=== PATIENT | male | born 1930 | race Hispanic/Latino ===

== ENCOUNTER 2017-05-28 06:22 | Emergency (ER) | payer MEDICARE ==
[2017-05-28 06:22] VITALS: BMI 25.8
[2017-05-28 06:28] VITALS: BP 118/73; PULSE 79; RESP 16; TEMP 98; O2SAT 99
--- NOTE | 2017-05-28 07:12 | ED PDOC ---
HPI: Back Time Seen by Provider: 05/28/17 07:02 Chief Complaint (Nursing): Back Pain Chief Complaint (Provider): Back Pain History Per: Patient History/Exam Limitations: no limitations Onset/Duration Of Symptoms: Days Current Symptoms Are (Timing): Still Present Additional Complaint(s): 86 y/o male with a past medical history of herniated lumbar disc who presents to the emergency department with a complaint of a non-radiating left-sided lower back pain since yesterday, 05/27/2017. Denies weakness, paresthesias, or any urinary symptoms. Past Medical History Reviewed: Historical Data, Nursing Documentation, Vital Signs Vital Signs: Last Vital Signs Temp 98 F 05/28/17 06:25 Pulse 79 05/28/17 06:25 Resp 16 05/28/17 06:25 BP 118/73 05/28/17 06:25 Pulse Ox 99 05/28/17 06:25 - Medical History PMH: Back Problems (Herniated lumbar disc), HTN, Hypercholesterolemia, Hyperlipidemia - Surgical History Surgical History: No Surg Hx - Family History Family History: States: Unknown Family Hx - Social History Current smoker - smoking cessation education provided: No Alcohol: None Drugs: Denies - Home Medications Home Medications: Ambulatory Orders Medication Instructions Recorded Alendronate [Fosamax] 70 mg PO SAT 11/30/15 Atorvastatin [Lipitor] 10 mg PO DAILY 11/30/15 Cholecalciferol [Vitamin D 1000 IU] 1,000 unit PO DAILY 11/30/15 Cyanocobalamin [Vitamin B12 1000 1,000 mcg IM Q30D 11/30/15 mcg/ml Inj] Pantoprazole Sodium [Protonix] 40 mg PO DAILY 11/30/15 Timolol 0.5% Ophth [Timoptic 0.5% 1 drop EACHEYE DAILY 11/30/15 Ophth Soln] Valsartan [Diovan] 80 mg PO DAILY 11/30/15 Ibuprofen [Motrin] 600 mg PO TID 7 Days 09/09/16 oxyCODONE/Acetaminophen [Percocet 1 ea PO BID PRN #8 tab 09/09/16 5/325 mg Tab] Lactulose 10 gm PO DAILY 4 Days 09/15/16 Cyclobenzaprine [Cyclobenzaprine 10 mg PO TID #10 tab 05/28/17 HCl] Naproxen [Naprosyn] 500 mg PO Q12H #20 tab 05/28/17 - Allergies Allergies/Adverse Reactions: Allergies Allergy/AdvReac Type Severity Reaction Status Date / Time No Known Allergies Allergy Verified 11/30/15 17:00 Review of Systems ROS Statement: Except As Marked, All Systems Reviewed And Found Negative Genitourinary Male: Negative for: Dysuria, Frequency, Incontinence, Hematuria Musculoskeletal: Positive for: Back Pain Neurological: Negative for: Weakness (or paresthesias) Physical Exam - Reviewed Nursing Documentation Reviewed: Yes Vital Signs Reviewed: Yes - Physical Exam Appears: Positive for: Non-toxic, No Acute Distress Head Exam: Positive for: ATRAUMATIC, NORMAL INSPECTION, NORMOCEPHALIC Skin: Positive for: Normal Color, Warm, Dry Neck: Positive for: Normal, Supple Back: Positive for: Other (Left-sided paralumbar tenderness and spasn. ). Negative for: Normal Inspection (No midline tenderness or deformity.) Neurologic/Psych: Positive for: Alert, Oriented (x3). Negative for: Motor/ Sensory Deficits (Focal) - ECG O2 Sat by Pulse Oximetry: 99 (RA) Pulse Ox Interpretation: Normal Medical Decision Making Medical Decision Making: Time: 07:06 Initial impression: Back Pain Initial plan: --Urine DIP --Cyclobenzaprine 10 mg PO --Toradol 30 mg IM --Reevaluation Scribe Attestation: Documented by Malaika Vann, acting as a scribe for Mauricio Perez MD. Provider Scribe Attestation: All medical record entries made by the Scribe were at my direction and personally dictated by me. I have reviewed the chart and agree that the record accurately reflects my personal performance of the history, physical exam, medical decision making, and the department course for this patient. I have also personally directed, reviewed, and agree with the discharge instructions and disposition. Disposition - Clinical Impression Clinical Impression: Chronic back pain, Back strain - Patient ED Disposition Is Patient to be Admitted: No Counseled Patient/Family Regarding: Diagnosis, Need For Followup, Rx Given - Disposition Referrals: Tere Arguello MD [Staff Provider] - Disposition: Routine/Home Disposition Time: 08:03 Condition: FAIR Prescriptions: Cyclobenzaprine [Cyclobenzaprine HCl] 10 mg PO TID #10 tab Naproxen [Naprosyn] 500 mg PO Q12H #20 tab Instructions: Back Pain (ED) Forms: [facility] (Kittitian)
== END 2017-05-28 09:02 | disposition home or self-care (01) ==
LOC: H.ER 06:22
DX: M54.9 Dorsalgia, unspecified (principal); E78.5 Hyperlipidemia, unspecified; G89.29 Other chronic pain; I10 Essential (primary) hypertension
CPT/HCPCS: 96372; 99282; J1885

== ENCOUNTER 2017-05-29 22:39 | Inpatient (IN) | payer MEDICARE ==
[2017-05-29 22:39] VITALS: BMI 25.8
--- NOTE | 2017-05-29 23:36 | ED PDOC ---
Lower Extremity Pain/Injury Time Seen by Provider: 05/29/17 22:45 Chief Complaint (Nursing): Lower Extremity Problem/Injury Chief Complaint (Provider): Lower Extremity Problem/Injury History Per: Patient History/Exam Limitations: no limitations Onset/Duration Of Symptoms: Mins (30 min prior to arrival) Current Symptoms Are (Timing): Still Present Additional Complaint(s): 86 y/o male with a history of hypertension, gait instability, recurrent falls, chronic back pain, and disc herniation, who was brought to the ED by EMS after sustaining a fall 30 minutes prior to arrival. States that while getting out of bed he fell, and lost his balance trying to get back up. No head injury, LOC, or chest pain. Patient with left-sided buttock pain but denies difficulty moving lower extremities. States that he has chronic back pain , and pain is similar to what he normally experiences. PMD: Parker Mandujano Past Medical History Reviewed: Historical Data, Nursing Documentation, Vital Signs Vital Signs: Last Vital Signs Temp 98.1 F 05/29/17 22:41 Pulse 76 05/29/17 22:41 Resp 18 05/29/17 22:41 BP 98/61 L 05/29/17 22:41 Pulse Ox 97 05/29/17 22:41 - Medical History PMH: Back Problems (Herniated lumbar disc), HTN, Hypercholesterolemia, Hyperlipidemia Other PMH: gait instability, recurrent falls - Surgical History Surgical History: No Surg Hx - Family History Family History: States: Unknown Family Hx - Social History Current smoker - smoking cessation education provided: No Alcohol: None Drugs: Denies - Home Medications Home Medications: Ambulatory Orders Medication Instructions Recorded Alendronate [Fosamax] 70 mg PO SAT 11/30/15 Atorvastatin [Lipitor] 10 mg PO DAILY 11/30/15 Cholecalciferol [Vitamin D 1000 IU] 1,000 unit PO DAILY 11/30/15 Cyanocobalamin [Vitamin B12 1000 1,000 mcg IM Q30D 11/30/15 mcg/ml Inj] Pantoprazole Sodium [Protonix] 40 mg PO DAILY 11/30/15 Timolol 0.5% Ophth [Timoptic 0.5% 1 drop EACHEYE DAILY 11/30/15 Ophth Soln] Valsartan [Diovan] 80 mg PO DAILY 11/30/15 Ibuprofen [Motrin] 600 mg PO TID 7 Days 09/09/16 oxyCODONE/Acetaminophen [Percocet 1 ea PO BID PRN #8 tab 09/09/16 5/325 mg Tab] Lactulose 10 gm PO DAILY 4 Days 09/15/16 Cyclobenzaprine [Cyclobenzaprine 10 mg PO TID #10 tab 05/28/17 HCl] Naproxen [Naprosyn] 500 mg PO Q12H #20 tab 05/28/17 - Allergies Allergies/Adverse Reactions: Allergies Allergy/AdvReac Type Severity Reaction Status Date / Time No Known Allergies Allergy Verified 11/30/15 17:00 Review of Systems ROS Statement: Except As Marked, All Systems Reviewed And Found Negative Musculoskeletal: Positive for: Other (Hip pain) Physical Exam - Reviewed Nursing Documentation Reviewed: Yes Vital Signs Reviewed: Yes - Physical Exam Appears: Positive for: Non-toxic, No Acute Distress Head Exam: Positive for: ATRAUMATIC, NORMAL INSPECTION, NORMOCEPHALIC Skin: Positive for: Normal Color, Warm, Dry Eye Exam: Positive for: EOMI, Normal appearance, PERRL Neck: Positive for: Normal, Painless ROM, Supple Cardiovascular/Chest: Positive for: Regular Rate, Rhythm. Negative for: Murmur Respiratory: Positive for: Normal Breath Sounds. Negative for: Accessory Muscle Use, Respiratory Distress Gastrointestinal/Abdominal: Positive for: Normal Exam, Soft. Negative for: Tenderness Back: Positive for: Normal Inspection. Negative for: L CVA Tenderness, R CVA Tenderness, Vertebral Tenderness Extremity: Positive for: Normal ROM (At baseline, patient ambulates w/ a cane. Able to raise leg without difficulty.). Negative for: Deformity, Other (hip tenderness) Neurologic/Psych: Positive for: Alert, Oriented - Laboratory Results Result Diagrams: 05/30/17 01:10 05/30/17 01:10 - ECG O2 Sat by Pulse Oximetry: 97 (RA) Pulse Ox Interpretation: Normal - Critical Care Total Time (In Min): 30 Medical Decision Making Medical Decision Making: Time: 22:56 Impression: 86 y/o male with hip pain s/p fall --Ordered X-Ray Left Hip w/ Pelvis --Pending reevaluation and disposition Time: 23:39 X-Ray Left Hip & Pelvis: FINDINGS: Bones/joints: No acute fracture. No dislocation. Soft tissues: Vascular calcifications. IMPRESSION: 1. No fracture. 2. If hip pain persists, consider MRI to exclude occult fracture/internal derangement. Time: 00:51 --Gait is very unsteady and unstable, patient is at high risk for recurrent falls at home --Will admit patient for further work-up and possible sub-acute rehab. Diagnoses: Dystaxia, Recurrent falls --Ordered labs, EKG, and Chest X-Ray --CT Head w/o contrast --CT Lumbar Spine w/o contrast --Arrangements made with Dr. Ritter, Medicine on-call, for admission Time: 02:05 CT Head w/o contrast: FINDINGS: Brain: Moderate atrophy. No intracranial hemorrhage. No mass. Few scattered foci of decreased attenuation within periventricular/subcortical white matter. No edema. Ventricles: No hydrocephalus. Bones/joints: No acute fracture. Soft tissues: Unremarkable. Vasculature: Atherosclerotic disease of intracranial arteries. Sinuses: [id number] mucosal thickening of RIGHT maxillary sinus. Mastoid air cells: No mastoid effusion. Orbits: Unremarkable as visualized. IMPRESSION: 1. No intracranial hemorrhage. 2. Nonspecific white matter changes. 3. Incidental/non-acute findings are described above. Time: 02:11 CT Lumbar Spine w/o contrast: FINDINGS: Vertebrae: No acute fracture. Moderate to severe compression deformity L1 vertebral body, chronic. Mild wedge compression deformity T12 vertebral body, chronic. Levoscoliosis. Facet osteoarthrosis within lumbar spine. Discs/spinal canal/neural foramina: Moderate to severe degenerative disc disease within upper to mid lumbar spine. Mild degenerative disc disease within lower lumbar spine. Mild central canal stenosis. Multilevel neuroforaminal stenosis. Soft tissues: Unremarkable. Vasculature: Atherosclerotic disease of visualized arteries. IMPRESSION: 1. No fracture. 2. Incidental/non-acute findings are described above. Scribe Attestation: Documented by Verna Giron, acting as a scribe for Elijah Sellers MD Provider Scribe Attestation: All medical record entries made by the Scribe were at my direction and personally dictated by me. I have reviewed the chart and agree that the record accurately reflects my personal performance of the history, physical exam, medical decision making, and the department course for this patient. I have also personally directed, reviewed, and agree with the discharge instructions and disposition. Disposition - Clinical Impression Clinical Impression: Fall, Back contusion - Patient ED Disposition Is Patient to be Admitted: Yes Counseled Patient/Family Regarding: Studies Performed, Diagnosis - Disposition Disposition Time: 00:20 Condition: STABLE - Pt Status Changed To: Hospital Disposition Of: Inpatient - Admit Certification Admit to Inpatient:: After my assessment, the patient will require hospitalization for at least two midnights. This is because of the severity of symptoms shown, intensity of services needed, and/or the medical risk in this patient being treated as an outpatient. - POA Present On Arrival: Falls Or Trauma
--- NOTE | 2017-05-29 23:39 | RAD ---
EXAM: XR Left Hip With Pelvis When Performed, 2 or 3 Views CLINICAL HISTORY: 86 years old, male; Injury or trauma; Fall; Initial encounter; Blunt trauma (contusions or hematomas); Left; Hip; Additional info: Left hip pain TECHNIQUE: Two or three views of the left hip, with pelvis when performed. COMPARISON: No relevant prior studies available. FINDINGS: Bones/joints: No acute fracture. No dislocation. Soft tissues: Vascular calcifications. IMPRESSION: 1. No fracture. 2. If hip pain persists, consider MRI to exclude occult fracture/internal derangement.
[2017-05-30 01:26] LABS: BASO # 0.1 K/uL (0.0-0.2); BASO % 0.8 % (0.0-2.0); EOS # 0.2 K/uL (0.0-0.7); EOS % 1.9 % (0.0-4.0); HEMATOCRIT 41.4 % (35.0-51.0); LYMPH # 2.3 K/uL (1.0-4.3); LYMPH % 18.1 % (20.0-40.0); MEAN CELL VOLUME 97.5 fl (80.0-94.0); MEAN CORPUSCULAR HEMOGLOBIN 32.2 pg (27.0-31.0); MEAN PLATELET VOLUME 8.7 fl (7.2-11.7); MONO # 1.6 K/uL (0.0-0.8); MONO % 12.4 % (0.0-10.0); NEUT # 8.6 K/uL (1.8-7.0); NEUT % 66.8 % (50.0-75.0); NRBC % 0.1 % (0.0-0.0); RED CELL DISTRIBUTION WIDTH 15.5 % (11.5-14.5); WHITE BLOOD COUNT 12.9 K/uL (4.8-10.8)
[2017-05-30 01:45] LABS: CALCIUM 9.3 mg/dL (8.4-10.2); POTASSIUM 4.2 MMOL/L (3.6-5.0); TOTAL PROTEIN 7.2 G/DL (6.3-8.2)
[2017-05-30 01:46] LABS: ALB/GLOB RATIO 1.1 (1.0-2.1); BILIRUBIN,TOTAL 0.8 mg/dl (0.2-1.3)
--- NOTE | 2017-05-30 02:05 | CT ---
EXAM: CT Head Without Intravenous Contrast CLINICAL HISTORY: 86 years old, male; Injury or trauma; Fall; Initial encounter; Concussion / head injury; Consciousness not specified; Additional info: Dystaxia. Sent phy. Doc. With request TECHNIQUE: Axial computed tomography images of the head/brain without intravenous contrast. All CT scans at this facility use one or more dose reduction techniques, viz.: automated exposure control; ma/kV adjustment per patient size (including targeted exams where dose is matched to indication; i.e. head); or iterative reconstruction technique. Coronal and sagittal reformatted images were created and reviewed. COMPARISON: CT - HEAD W/O CONTRAST 04/01/2016 10:37:58 AM FINDINGS: Brain: Moderate atrophy. No intracranial hemorrhage. No mass. Few scattered foci of decreased attenuation within periventricular/subcortical white matter. No edema. Ventricles: No hydrocephalus. Bones/joints: No acute fracture. Soft tissues: Unremarkable. Vasculature: Atherosclerotic disease of intracranial arteries. Sinuses: Velq-yj-ktotyxaj mucosal thickening of RIGHT maxillary sinus. Mastoid air cells: No mastoid effusion. Orbits: Unremarkable as visualized. IMPRESSION: 1. No intracranial hemorrhage. 2. Nonspecific white matter changes. 3. Incidental/non-acute findings are described above.
--- NOTE | 2017-05-30 02:12 | CT ---
EXAM: CT Lumbar Spine Without Intravenous Contrast CLINICAL HISTORY: 86 years old, male; Injury or trauma; Fall; Initial encounter; Blunt trauma (contusions or hematomas); Injury details: Back pain; Additional info: Back pain/dystaxia. Sent phy. Doc. With request TECHNIQUE: Axial computed tomography images of the lumbar spine without intravenous contrast. All CT scans at this facility use one or more dose reduction techniques, viz.: automated exposure control; ma/kV adjustment per patient size (including targeted exams where dose is matched to indication; i.e. head); or iterative reconstruction technique. COMPARISON: MR - 08/24/2015 12:56:04 PM FINDINGS: Vertebrae: No acute fracture. Moderate to severe compression deformity L1 vertebral body, chronic. Mild wedge compression deformity T12 vertebral body, chronic. Facet osteoarthrosis within lumbar spine. Discs/spinal canal/neural foramina: Moderate to severe degenerative disc disease within upper to mid lumbar spine. Mild degenerative disc disease within lower lumbar spine. Mild central canal stenosis. Multilevel neuroforaminal stenosis. Soft tissues: Unremarkable. Vasculature: Atherosclerotic disease of visualized arteries. IMPRESSION: 1. No fracture. 2. Incidental/non-acute findings are described above.
--- NOTE | 2017-05-30 09:42 | RAD ---
HISTORY: admit COMPARISON: Comparison chest dated 09/09/2016. Comparison also made with CT scan chest dated 01/16/2010 FINDINGS: LUNGS: Mild bibasilar atelectasis and/or scarring changes. PLEURA: Calcified pleural plaque changes again seen left upper reva thorax. CARDIOVASCULAR: Heart is enlarged. Aorta is ectatic and uncoiled. OSSEOUS STRUCTURES: No significant abnormalities. VISUALIZED UPPER ABDOMEN: Normal. OTHER FINDINGS: None. IMPRESSION: Mild bibasilar atelectasis and or scarring. Calcified pleural plaque changes left upper reva thorax. .
--- NOTE | 2017-05-30 21:06 | CARD ---
APPROVED REPORT EKG Measurement Heart [id number] <Conclusion> Sinus rhythm with sinus arrhythmia with occasional premature ventricular complexes Left axis deviation Right bundle branch block Moderate voltage criteria for LVH, may be normal variant Cannot rule out Septal infarct, age undetermined Abnormal ECG
--- NOTE | 2017-05-31 05:03 | HP ---
HISTORY OF PRESENT ILLNESS: This is [id number] male with history of hypertension, degenerative spine disease with history of left lower extremity weakness, presented to emergency room after a fall. The patient recently has recurrent falls associated with chronic back pain. The patient had an MRI about a year ago and he was told he has disk herniation. The patient was brought to the emergency room after sustaining a fall 30 minutes prior to the arrival. The patient states that while getting out of the bed, he fell and lost his balance, trying to get up. No hit injury, loss of consciousness or chest pain. The patient with left-sided buttock pain, but denied difficulty moving lower extremities. The patient states that he has chronic leg pain and pain similar to what he normally experience. REVIEW OF SYSTEMS: All the review of systems is negative. ALLERGIES: NO KNOWN ALLERGIES. HOME MEDICATIONS: Include Protonix 40 mg daily, Motrin 600 mg 3 times a day as needed, vitamin B12 injection every month, Lipitor 10 mg daily, Fosamax 70 mg every week, Percocet 5/325 p.r.n. for pain, Diovan 80 mg daily, naproxen 500 mg every 12 hours and Flexeril 10 mg 3 times a day. 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 SOCIAL HISTORY: No history of smoking, ETOH or substance abuse. FAMILY HISTORY: Noncontributory. PHYSICAL EXAMINATION: GENERAL: The patient is in bed, comfortable at the time of this examination. VITAL SIGNS: Blood pressure 103/64, temperature 97.8, respiratory rate 20, and pulse 65. HEENT: Pupils equal and reactive to light. Normal appearing mucosa of the conjunctivae, oropharyngeal and nasal membrane mucosa. NECK: Supple. No JVD. No carotid bruits. No lymph node. No thyromegaly. CHEST AND LUNGS: Bilateral symmetrical expansion. Good air exchange, No rales. No rhonchi. CARDIOVASCULAR SYSTEM: PMI, not localized. S1, S2, no additional sounds. ABDOMEN: Normoactive bowel sounds, no tenderness. No thyromegaly, no masses. EXTREMITIES: No cyanosis, no clubbing, no edema. CENTRAL NERVOUS SYSTEM: Alert, awake, oriented x2. No neurological deficit could be appreciated. ASSESSMENT: 1. Frequent falls with unsteady gait secondary to disk herniation and degenerative spine disease. 2. History of hypertension. PLAN: We would start physical therapy, pain management and would give the patient also lactulose 30 mL every 4 hours due to constipation. We would plan also to discharge the patient to subacute rehabilitation if it is needed. [facility] MD Stone
[2017-05-31 06:39] LABS: RBC URINE 1 /hpf (0-3); URINE BILIRUBIN NEGATIVE (NEGATIVE); URINE BLOOD NEGATIVE (NEGATIVE); URINE COLOR YELLOW (YELLOW); URINE GLUCOSE (UA) NEG (Normal); URINE KETONE NEGATIVE (NEGATIVE); URINE LEUKOCYTE ESTERASE NEG Leu/uL (Negative); URINE PROTEIN NEGATIVE (NEGATIVE); WBC URINE < 1 /hpf (0-5)
[2017-05-31] MEDS ORDERED: Magnesium Citrate Oral SOL (300 ml) PO ONE (14:59)
[2017-05-31] MEDS ORDERED: Lactulose 10 gm/15 ml (Rectal Use) PR SCH (17:00)
--- NOTE | 2017-06-01 00:19 | PN ---
DATE: 05/31/2017 SUBJECTIVE: He is not in any cardiopulmonary distress. The patient was started on physical therapy. PHYSICAL EXAMINATION: VITAL SIGNS: Blood pressure 114/74, temperature 97.3, respiratory rate 20 and pulse 60. HEENT: Pupils equal, reactive to light. Normal appearing mucosa of the conjunctivae, oropharyngeal and nasal membrane mucosa. NECK: Supple. No JVD. No carotid bruit. No lymph node. No thyromegaly. CHEST AND LUNGS: Bilateral symmetrical expansion. Good air exchange. No rales, no rhonchi. CARDIOVASCULAR SYSTEM: PMI not localized. S1, S2. No additional sounds. ABDOMEN: Normoactive bowel sounds. No tenderness. No organomegaly. No masses. EXTREMITIES: No cyanosis, no clubbing, no edema. CENTRAL NERVOUS SYSTEM: Alert, awake, oriented x3. No neurological deficit could be appreciated except for unsteady gait. ASSESSMENT: 1. Degenerative spine disease with radiculopathy and right lower extremity weakness, frequent falls. 2. Hypertension. 3. Hypercholesterolemia. PLAN: Continue physical therapy and if the patient is a candidate will discharge to a subacute rehabilitation. Nadine Ritter MD
[2017-06-01 07:18] VITALS: RESP 20
[2017-06-01] MEDS ORDERED: Magnesium Citrate Oral SOL (300 ml) PO ONE (14:13)
[2017-06-02 00:36] VITALS: O2SAT 98
[2017-06-02 08:10] VITALS: BP 119/73; PULSE 71; TEMP 97.8
[2017-06-02 13:03] LABS: HEMATOCRIT 47.1 % (35.0-51.0); MEAN CELL VOLUME 98.7 fl (80.0-94.0); MEAN CORPUSCULAR HEMOGLOBIN 32.3 pg (27.0-31.0); MEAN CORPUSCULAR HGB CONC 32.7 g/dL (33.0-37.0); RED CELL DISTRIBUTION WIDTH 15.6 % (11.5-14.5); WHITE BLOOD COUNT 9.1 K/uL (4.8-10.8)
[2017-06-02 13:11] LABS: BLOOD UREA NITROGEN 17 mg/dl (9-20); CARBON DIOXIDE 23 mmol/L (22-30); CHLORIDE 102 mmol/L (98-107); GFR AFRICAN-AMERICAN > 60; GLUCOSE,RANDOM 99 mg/dL (75-110); POTASSIUM 4.2 MMOL/L (3.6-5.0); SODIUM 138 mmol/l (132-148)
[2017-06-02] MEDS ORDERED: Hydrogen Peroxide 3% Soln (480ml) TP ONE (17:00)
--- NOTE | 2017-06-03 06:58 | DS ---
REASON FOR ADMISSION: This is an 86 years old male with history of multiple medical problems presented with symptoms of frequent fall. COURSE OF HOSPITALIZATION: The patient was admitted to medical floor and he had a physical therapy order. The patient has been having degenerative spine disease with lumbosacral disc herniation and radiculopathy with some weakness of the lower extremity, left more than right and tendency to fall. The patient was obliged to continue physical therapy and pain control by acetaminophen 650 mg twice a day as needed. The patient was recommended to go to subacute rehabilitation by physical therapy. The patient was discharged to [facility] today in a stable condition. FINAL DIAGNOSES: Frequent falls, degenerative spine disease with lumbosacral disc herniation and radiculopathy, hypertension. [facility] MD Stone
== END 2017-06-02 18:24 | DRG 552 ==
LOC: H.ER 22:39 → H.ERHOLD 05-30 00:56 → H.MEDSURG1 05-30 02:35
PROVIDERS: ADMIT Internal Medicine; ATTEND Internal Medicine
PROC: F07Z9FZ Gait Training/Functional Ambulation Treatment using Assistive, Adaptive, Supportive or Protective Equipment (ICD-10-PCS; principal; 2017-05-31)
DX: M51.17 Intervertebral disc disorders with radiculopathy, lumbosacral region (principal); I10 Essential (primary) hypertension; G89.29 Other chronic pain; R29.6 Repeated falls; R26.89 Other abnormalities of gait and mobility; E78.5 Hyperlipidemia, unspecified; E78.00 Pure hypercholesterolemia, unspecified; Z79.83 Long term (current) use of bisphosphonates

== ENCOUNTER 2017-08-24 15:21 | Emergency (ER) | payer MEDICARE ==
[2017-08-24 15:22] VITALS: BMI 25.8
[2017-08-24] MEDS ORDERED: Sodium Chloride 0.9% 1,000 ML IV STA (17:08)
[2017-08-24] MEDS ORDERED: Iohexol 240 (50 ml) PO ONE (17:13)
[2017-08-24 18:12] LABS: BASO # 0.1 K/uL (0.0-0.2); BASO % 0.4 % (0.0-2.0); EOS # 0.2 K/uL (0.0-0.7); EOS % 0.8 % (0.0-4.0); HEMATOCRIT 41.5 % (35.0-51.0); LYMPH # 2.2 K/uL (1.0-4.3); LYMPH % 11.3 % (20.0-40.0); MEAN CELL VOLUME 96.6 fl (80.0-94.0); MEAN CORPUSCULAR HGB CONC 33.1 g/dL (33.0-37.0); MONO # 1.2 K/uL (0.0-0.8); NEUT % 81.5 % (50.0-75.0); RED CELL DISTRIBUTION WIDTH 15.7 % (11.5-14.5); WHITE BLOOD COUNT 19.6 K/uL (4.8-10.8)
[2017-08-24] MEDS ORDERED: Iohexol 240 (50 ml) ONE (18:12)
[2017-08-24 18:33] LABS: BILIRUBIN,TOTAL 1.1 mg/dl (0.2-1.3); CALCIUM 8.7 mg/dL (8.4-10.2); CARBON DIOXIDE 26 mmol/L (22-30); CHLORIDE 106 mmol/L (98-107); GFR AFRICAN-AMERICAN > 60; GLUCOSE,RANDOM 100 mg/dL (75-110); SODIUM 142 mmol/l (132-148); TOTAL PROTEIN 7.3 G/DL (6.3-8.2)
[2017-08-24 18:35] LABS: ALKALINE PHOSPHATASE 101 U/L (38-126); ALT/SGPT 53 U/L (21-72); AST/SGOT 47 U/L (17-59); BLOOD UREA NITROGEN 22 mg/dl (9-20); POTASSIUM 4.9 MMOL/L (3.6-5.0)
--- NOTE | 2017-08-24 18:48 | ED PDOC ---
HPI: General Adult Time Seen by Provider: 08/24/17 16:25 Chief Complaint (Nursing): GI Problem History Per: Patient Additional Complaint(s): Pt. states for the past week she's had frequent non-bloody BM's which change between normal consistency to diarrhea. States he is usually constipated and he last took his "constipation medicine" the day before the onset of symptoms. Denies abdominal pain, fever, dysuria, melena, hematochezia, BRBPR, N/V, chest pain, SOB, palpitations. Past Medical History Reviewed: Historical Data, Nursing Documentation, Vital Signs Vital Signs: Last Vital Signs Temp 98.2 F 08/24/17 16:13 Pulse 95 H 08/24/17 16:13 Resp 16 08/24/17 16:13 BP 104/48 L 08/24/17 16:13 Pulse Ox 96 08/24/17 16:13 - Medical History PMH: Back Problems (Herniated lumbar disc), HTN, Hypercholesterolemia, Hyperlipidemia Denies: Asthma, HIV, Hyperthyroidism, Hypothyroidism, Kidney Stones, Chronic Kidney Disease - Family History Family History: States: No Known Family Hx - Home Medications Home Medications: Ambulatory Orders Medication Instructions Recorded Alendronate [Fosamax] 70 mg PO SAT 11/30/15 Atorvastatin [Lipitor] 10 mg PO DAILY 11/30/15 Cholecalciferol [Vitamin D 1000 IU] 1,000 unit PO DAILY 11/30/15 Cyanocobalamin [Vitamin B12 1000 1,000 mcg IM Q30D 11/30/15 mcg/ml Inj] Pantoprazole Sodium [Protonix] 40 mg PO DAILY 11/30/15 Timolol 0.5% Ophth [Timoptic 0.5% 1 drop EACHEYE DAILY 11/30/15 Ophth Soln] Valsartan [Diovan] 80 mg PO DAILY 11/30/15 oxyCODONE/Acetaminophen [Percocet 1 ea PO BID PRN #8 tab 09/09/16 5/325 mg Tab] Lactulose 10 gm PO DAILY 4 Days solution 09/15/16 Cyclobenzaprine [Flexeril] 10 mg PO TID #10 tab 05/28/17 Naproxen [Naprosyn] 500 mg PO Q12H #20 tab 05/28/17 Ibuprofen [Motrin Tab] 600 mg PO TID PRN 05/30/17 Lactulose [Enulose] 20 gm PO Q4H PRN 06/02/17 - Allergies Allergies/Adverse Reactions: Allergies Allergy/AdvReac Type Severity Reaction Status Date / Time No Known Allergies Allergy Verified 08/24/17 16:10 Review of Systems ROS Statement: Except As Marked, All Systems Reviewed And Found Negative Gastrointestinal: Positive for: Diarrhea Physical Exam - Reviewed Nursing Documentation Reviewed: Yes Vital Signs Reviewed: Yes - Physical Exam Appears: Positive for: Well, Non-toxic, No Acute Distress Head Exam: Positive for: ATRAUMATIC, NORMAL INSPECTION, NORMOCEPHALIC Skin: Positive for: Normal Color, Warm. Negative for: Rash Eye Exam: Positive for: EOMI, Normal appearance, PERRL ENT: Positive for: Normal ENT Inspection Neck: Positive for: Normal, Painless ROM Cardiovascular/Chest: Positive for: Regular Rate, Rhythm Respiratory: Positive for: CNT, Normal Breath Sounds Gastrointestinal/Abdominal: Positive for: Normal Exam, Bowel Sounds, Soft. Negative for: Tenderness Back: Positive for: Normal Inspection Extremity: Positive for: Normal ROM Neurologic/Psych: Positive for: Alert, Oriented. Negative for: Aphasia, Facial Droop - Laboratory Results Result Diagrams: 08/24/17 18:00 08/24/17 18:00 - ECG O2 Sat by Pulse Oximetry: 96 - Progress ED Course And Treament: Labs ordered. CT abd/pelvis w/ PO and IV contrast ordered. IV NS hydration ordered. 1845 WBC 19.6 VBG, Blood culture x 2 ordered. Disposition - Clinical Impression Clinical Impression: Diarrhea - Patient ED Disposition Is Patient to be Admitted: Transfer of Care (Signed out to Humza KELLEY pending CT results and final disposition.) - Disposition Disposition Time: 20:00 Condition: STABLE
[2017-08-24 19:21] LABS: VENOUS BLOOD GAS BASE EXCESS 2.2 mmol/L (0.0-2.0); VENOUS BLOOD GAS PCO2 43 mmHg (40-60); VENOUS BLOOD PH 7.41 (7.32-7.43)
[2017-08-24] MEDS ORDERED: Sodium Chloride 0.9% 50 ML IV ONE (20:10)
[2017-08-24] MEDS ORDERED: Iohexol 300 100 ML IJ ONE (20:10)
--- NOTE | 2017-08-24 20:46 | ED PDOC ---
- Laboratory Results Result Diagrams: 08/24/17 18:00 08/24/17 18:00 - ECG O2 Sat by Pulse Oximetry: 96 Medical Decision Making Medical Decision Making: Case endorsed to fiction writer from [facility] at 1999 pending diagnostic review and re-eval Upon my eval, Pt in bed asking for food. CT scan pending IMPRESSION: Fatty liver, no acute solid visceral abnormality; no bowel obstruction; moderate stool in the left colon with fecal bolus in the rectum and rectal wall thickening suggests constipation and fecal impaction, this could result in encopresis; no CT findings of appendicitis or diverticulitis; age indeterminate L1 compression fracture Additional findings as described above Pt on re-eval offers no complaints of pain, Pt asking to eat now. abdomen soft, non tender and non distended. Pt asking to go home. Case discussed with ED MD, Dr. Nails, who agreed pt stable for discharge at this time. Importance of follow up with Dr. Mandujano discussed at length Disposition - Clinical Impression Clinical Impression: Constipated - POA Present On Arrival: None - Disposition Disposition: Routine/Home Disposition Time: 23:06 Condition: STABLE Additional Instructions: Follow up with Dr. Mandujano as directed Instructions: Constipation (ED) Forms: [facility] (Faroese)
--- NOTE | 2017-08-24 22:07 | CT ---
EXAM: CT Abdomen and Pelvis With Intravenous Contrast EXAM DATE/TIME: 08/24/2017 5:08 PM CLINICAL HISTORY: 86 years old, male; Signs and symptoms; Other: Diarrhea; Additional info: Diarrhea x 1 week TECHNIQUE: Axial computed tomography images of the abdomen and pelvis with intravenous contrast. All CT scans at this facility use one or more dose reduction techniques, viz.: automated exposure control; ma/kV adjustment per patient size (including targeted exams where dose is matched to indication; i.e. head); or iterative reconstruction technique. Coronal and sagittal reformatted images were created and reviewed. CONTRAST: 90 mL of [id number] administered intravenously. COMPARISON: There are no prior studies for comparison. FINDINGS: Lower thorax: The lungs are hyperinflated. The heart is mildly enlarged. There are coronary calcifications. Distal thoracic aorta is tortuous. There is atelectasis and scarring at the lung bases. ABDOMEN: Liver: There is fatty infiltration of the liver. Gallbladder and bile ducts: Partially distended gallbladder is normal in appearance.Common duct is unremarkable. Pancreas: Pancreas is atrophic. Spleen: unremarkable Adrenals: unremarkable Kidneys and ureters: unremarkable Stomach and bowel: Stomach is almost completely empty. Rotation is normal. Small bowel is mildly distended with fluid and air. There is no obstruction. There is oral contrast in distal small bowel and colon. Cecum is in the right upper quadrant anterior to the liver. Appendix and terminal ileum are unremarkable.. There is moderate stool in the left colon. There is a fecal bolus in the rectum. There is rectal wall thickening. There is scattered diverticulosis. Appendix: See stomach and bowel PELVIS: Bladder: Bladder is partially distended. There is a focal area of bladder wall thickening. Reproductive: Seminal vesicles and prostate are unremarkable. ABDOMEN and PELVIS: Intraperitoneal space: There is a small amount of free fluid in the pelvis.There is no free air. Bones/joints: Bony structures are osteopenic. There are degenerative changes. The is compression fracture of L1. There is mild loss of height of lower thoracic vertebral bodies. Soft tissues: There is a small fat containing umbilical hernia. Vasculature: There are calcified phleboliths. Aorta is tortuous.There are vascular calcifications. Lymph nodes: There is no pathologic adenopathy. IMPRESSION: Fatty liver, no acute solid visceral abnormality; no bowel obstruction; moderate stool in the left colon with fecal bolus in the rectum and rectal wall thickening suggests constipation and fecal impaction, this could result in encopresis; no CT findings of appendicitis or diverticulitis; age indeterminate L1 compression fracture Additional findings as described above.
[2017-08-24 22:23] VITALS: BP 105/55; PULSE 66; RESP 18; TEMP 98
[2017-08-24 22:30] LABS: RBC URINE 2 /hpf (0-3); URINE BACTERIA RARE (<OCC); URINE BILIRUBIN SMALL (NEGATIVE); URINE BLOOD NEGATIVE (NEGATIVE); URINE COLOR AMBER (YELLOW); URINE GLUCOSE (UA) NEG (Normal); URINE KETONE TRACE mg/dL (NEGATIVE); URINE LEUKOCYTE ESTERASE NEG Leu/uL (Negative); URINE PROTEIN 30 mg/dL (NEGATIVE); WBC URINE 4 /hpf (0-5)
[2017-08-24 22:58] VITALS: O2SAT 96
--- NOTE | 2017-08-25 11:34 | RAD ---
HISTORY: cough COMPARISON: Frontal chest radiograph 05/30/2017. TECHNIQUE: Chest PA and lateral FINDINGS: LUNGS: History volume appears diminished compared to the prior exam 05/30/2017. The hemidiaphragm also appears mildly elevated. Reticular markings may be present although increased linear density at the bilateral bases may be a function of carotid bronchovascular markings from limited history effort. No alveolitis or pneumothorax. No pleural effusion bilaterally. CARDIOVASCULAR: Cardiac silhouette is partially obscured by the elevated left hemidiaphragm but is not significantly changed overall. No pulmonary vascular derangement identified. OSSEOUS STRUCTURES: No significant abnormalities. VISUALIZED UPPER ABDOMEN: Oral contrast identified within the stomach and several bowel loops. OTHER FINDINGS: None. IMPRESSION: Limited history effort may be the cause of crowding of the bronchovascular markings the bases although interstitial changes are not excluded both bases. Further clinical correlation is recommended. Elevated left hemidiaphragm.
== END 2017-08-24 23:07 | disposition home or self-care (01) ==
LOC: H.ER 15:21
DX: K59.00 Constipation, unspecified (principal); E78.00 Pure hypercholesterolemia, unspecified; I10 Essential (primary) hypertension; K76.0 Fatty (change of) liver, not elsewhere classified; M48.56XA Collapsed vertebra, not elsewhere classified, lumbar region, initial encounter for fracture
CPT/HCPCS: 71020; 74177; 80053; 81003; 82803; 85025; 87040; 99284; J7040; Q9966; Q9967

== ENCOUNTER 2017-08-28 18:54 | Inpatient (IN) | payer MEDICARE ==
[2017-08-28 18:56] VITALS: BMI 25.8
--- NOTE | 2017-08-28 21:35 | ED PDOC ---
HPI: General Adult Time Seen by Provider: 08/28/17 19:23 Chief Complaint (Nursing): GI Problem Chief Complaint (Provider): Fecal Incontinence History Per: Patient History/Exam Limitations: no limitations Onset/Duration Of Symptoms: Days (x 4) Additional Complaint(s): Richard Crespo is a 86 year old, male who presents to the ED complaining of fecal incontinence, onset 4 days ago. Patient was here on Thursday complaining of symptoms related to abdominal pain and constipation. A CT was taken of his abdomen which showed a large amount of fecal impaction. He returned today because of two episodes of fecal incontinence, one today and another on Thursday. He now denies abdominal pain, rectal pain, fever, cough, chest pain, shortness of breath, nausea and vomiting. PMD: Dr. Parker Mandujano MD Past Medical History Reviewed: Historical Data, Nursing Documentation, Vital Signs Vital Signs: Last Vital Signs Temp 98.4 F 08/28/17 22:57 Pulse 84 08/28/17 22:57 Resp 16 08/28/17 22:57 BP 124/66 08/28/17 22:57 Pulse Ox 98 08/28/17 22:57 - Medical History PMH: Back Problems (Herniated lumbar disc), HTN, Hypercholesterolemia, Hyperlipidemia Denies: Asthma, HIV, Hyperthyroidism, Hypothyroidism, Kidney Stones, Chronic Kidney Disease - Family History Family History: States: Unknown Family Hx - Social History Current smoker - smoking cessation education provided: No Alcohol: None Drugs: Denies - Home Medications Home Medications: Ambulatory Orders Medication Instructions Recorded Alendronate [Fosamax] 70 mg PO SAT 11/30/15 Atorvastatin [Lipitor] 10 mg PO DAILY 11/30/15 Cholecalciferol [Vitamin D 1000 IU] 1,000 unit PO DAILY 11/30/15 Cyanocobalamin [Vitamin B12 1000 1,000 mcg IM Q30D 11/30/15 mcg/ml Inj] Pantoprazole Sodium [Protonix] 40 mg PO DAILY 11/30/15 Timolol 0.5% Ophth [Timoptic 0.5% 1 drop EACHEYE DAILY 11/30/15 Ophth Soln] Valsartan [Diovan] 80 mg PO DAILY 11/30/15 oxyCODONE/Acetaminophen [Percocet 1 ea PO BID PRN #8 tab 09/09/16 5/325 mg Tab] Cyclobenzaprine [Flexeril] 10 mg PO TID #10 tab 05/28/17 Naproxen [Naprosyn] 500 mg PO Q12H #20 tab 05/28/17 Ibuprofen [Motrin Tab] 600 mg PO TID PRN 05/30/17 Lactulose [Enulose] 20 gm PO Q4H PRN 06/02/17 Guaifenesin [Mucinex] 600 mg PO Q12 #30 tab.er.12h 08/24/17 - Allergies Allergies/Adverse Reactions: Allergies Allergy/AdvReac Type Severity Reaction Status Date / Time No Known Allergies Allergy Verified 08/24/17 16:10 Review of Systems ROS Statement: Except As Marked, All Systems Reviewed And Found Negative Genitourinary Male: Positive for: Incontinence (fecal) Physical Exam - Reviewed Nursing Documentation Reviewed: Yes Vital Signs Reviewed: Yes - Physical Exam Appears: Positive for: Non-toxic, No Acute Distress Head Exam: Positive for: ATRAUMATIC, NORMOCEPHALIC Skin: Positive for: Normal Color, Warm, Dry Eye Exam: Positive for: EOMI, Normal appearance, PERRL Neck: Positive for: Normal, Painless ROM, Supple Cardiovascular/Chest: Positive for: Regular Rate, Rhythm. Negative for: Murmur Respiratory: Positive for: Normal Breath Sounds. Negative for: Respiratory Distress Gastrointestinal/Abdominal: Positive for: Normal Exam, Soft. Negative for: Tenderness Back: Positive for: Normal Inspection. Negative for: L CVA Tenderness, R CVA Tenderness, Vertebral Tenderness Extremity: Positive for: Normal ROM. Negative for: Pedal Edema, Deformity Neurologic/Psych: Positive for: Alert, Oriented. Negative for: Motor/Sensory Deficits - Laboratory Results Result Diagrams: 08/28/17 22:27 08/28/17 22:27 - ECG O2 Sat by Pulse Oximetry: 99 (RA) Pulse Ox Interpretation: Normal Medical Decision Making Medical Decision Making: Time: 19:50 Impression: 86 year old male with encopresis. Plan: --Abdomen with chest [RAD] --Fleet Enema 135 ml --Provider reviewed CT report of abdomen which showed that patient was likely to develop encopresis. --X ray shows persistent fecal impaction --Patient to be admitted to hospital under observation. Reassess: 21:25 After 1 enema, patient reports of having a bowel movement that was large, but still reports of rectal pressure. Patient requests stay for more enema treatment. The Patient will be placed on observation due to multiple comorbidities and persistent discomfort. Diagnosis: fecal impaction and constipation Patient was discussed with Dr. Yo Mansfield and will be admitted to the hospital Scribe Attestation: Documented by Jessa Gastelum, acting as a scribe for Elijah Sellers MD. Provider Scribe Attestation: All medical record entries made by the Scribe were at my direction and personally dictated by me. I have reviewed the chart and agree that the record accurately reflects my personal performance of the history, physical exam, medical decision making, and the department course for this patient. I have also personally directed, reviewed, and agree with the discharge instructions and disposition. Disposition - Clinical Impression Clinical Impression: Constipation, acute, Fecal impaction - Patient ED Disposition Is Patient to be Admitted: Yes Discussed With DrAscencion: Yo Mansfield Doctor Will See Patient In The: Hospital - Disposition Disposition Time: 21:25 Condition: FAIR
[2017-08-28 22:30] LABS: BASO # 0.1 K/uL (0.0-0.2); BASO % 0.7 % (0.0-2.0); EOS # 0.3 K/uL (0.0-0.7); EOS % 2.5 % (0.0-4.0); HEMATOCRIT 40.7 % (35.0-51.0); LYMPH # 2.1 K/uL (1.0-4.3); LYMPH % 15.7 % (20.0-40.0); MEAN CELL VOLUME 96.3 fl (80.0-94.0); MEAN CORPUSCULAR HEMOGLOBIN 32.1 pg (27.0-31.0); MEAN CORPUSCULAR HGB CONC 33.3 g/dL (33.0-37.0); MONO # 1.4 K/uL (0.0-0.8); MONO % 10.4 % (0.0-10.0); NEUT # 9.3 K/uL (1.8-7.0); NEUT % 70.7 % (50.0-75.0); RED CELL DISTRIBUTION WIDTH 15.8 % (11.5-14.5); WHITE BLOOD COUNT 13.1 K/uL (4.8-10.8)
[2017-08-28] MEDS ORDERED: Sodium Chloride 0.9% 500 ML IV STA (22:30)
[2017-08-28 22:46] LABS: BLOOD UREA NITROGEN 19 mg/dl (9-20); CALCIUM 8.5 mg/dL (8.4-10.2); CARBON DIOXIDE 25 mmol/L (22-30); CHLORIDE 108 mmol/L (98-107); GFR AFRICAN-AMERICAN > 60; GLUCOSE,RANDOM 110 mg/dL (75-110); POTASSIUM 3.9 MMOL/L (3.6-5.0); SODIUM 143 mmol/l (132-148)
[2017-08-29 07:26] LABS: HEMATOCRIT 36.9 % (35.0-51.0); MEAN CELL VOLUME 96.1 fl (80.0-94.0); MEAN CORPUSCULAR HEMOGLOBIN 32.3 pg (27.0-31.0); MEAN CORPUSCULAR HGB CONC 33.6 g/dL (33.0-37.0); RED CELL DISTRIBUTION WIDTH 15.6 % (11.5-14.5); WHITE BLOOD COUNT 11.8 K/uL (4.8-10.8)
[2017-08-29 07:43] LABS: ALKALINE PHOSPHATASE 125 U/L (38-126); ALT/SGPT 56 U/L (21-72); AST/SGOT 37 U/L (17-59); BILIRUBIN,TOTAL 0.7 mg/dl (0.2-1.3); BLOOD UREA NITROGEN 15 mg/dl (9-20); CALCIUM 7.9 mg/dL (8.4-10.2); CARBON DIOXIDE 24 mmol/L (22-30); CHLORIDE 108 mmol/L (98-107); CHOLESTEROL 114 mg/dL (0-199); GFR AFRICAN-AMERICAN > 60; GLUCOSE,RANDOM 106 mg/dL (75-110); POTASSIUM 3.6 MMOL/L (3.6-5.0); SODIUM 140 mmol/l (132-148); TOTAL PROTEIN 6.6 G/DL (6.3-8.2)
[2017-08-29 08:11] LABS: THYROID STIMULATING HORMONE 2.52 mIU/ML (0.46-4.68)
--- NOTE | 2017-08-29 08:15 | CP.PCM.CON ---
History of Present Illness - History of Present Illness History of Present Illness: Asked by Dr. Mansfield for a GI consultation on this patient. 86 year old male with history of HTN, chronic back pain secondary to lumbar radiculopathy who presents to hospital with complaint of constipation and rectal discomfort. He claims that he has been experiencing intermittent rectal pain with fecal incontinence over the past two days. He is typically constipated and has a bowel movement every other day according to at bedside. He received an enema last night and had a large bowel movement afterwards. He is currently seen sitting in bed eating pancakes and eggs, appears quite comfortable. He denies abdominal pain, nausea, vomiting, fever/chills. Social history: non-smoker, no ETOH Family history: reviewed, no history of colon cancer Review of Systems - Review of Systems Review of Systems: - All other comprehensive 12 point review of systems performed, negative - Cardiovascular Cardiovascular: absent: Acrocyanosis, Chest Pain, Chest Pain at Rest, Chest Pain with Activity, Claudication, Diaphoresis, Dyspnea, Dyspnea on Exertion, Edema, Irregular Heart Rhythm, Pain Radiating to Arm/Neck/Jaw, Leg Edema, Leg Ulcers, Lightheadedness, Orthopnea, Palpitations, Paroxysmal Nocturnal Dyspnea, Pedal Edema, Radiating Pain, Rapid Heart Rate, Slow Heart Rate, Syncope, Other - Respiratory Respiratory: absent: Cough, Dyspnea, Hemoptysis, Dyspnea on Exertion, Wheezing, Snoring, Stridor, Pain on Inspiration, Chest Congestion, Excessive Mucous Production, Change in Mucous Color, Pain with Coughing, Other - Gastrointestinal Gastrointestinal: Constipation - Musculoskeletal Musculoskeletal: Back Pain - Neurological Neurological: absent: Abnormal Gait, Abnormal Hearing, Abnormal Movements, Abnormal Speech, Behavioral Changes, Burning Sensations, Confusion, Convulsions , Disequilibrium, Dizziness, Numbness, Focal Weakness, Frequent Falls, Headaches , Lack of Coordination, Loss of Vision, Memory Loss, Paresthesias, Radicular Pain, Restless Legs, Sensory Deficit, Syncope, Tingling, Tremor, Vertigo, Weakness, Other Visual Disturbances, Other Past Patient History - Past Medical History & Family History Past Medical History?: Yes - Past Social History Smoking Status: Former Smoker - CARDIAC Hx Hypercholesterolemia: Yes Hx Hypertension: Yes - PULMONARY Hx Asthma: No - NEUROLOGICAL Hx Neurological Disorder: No - HEENT Hx Deafness: Yes - RENAL Hx Chronic Kidney Disease: No Hx Kidney Stones: No - ENDOCRINE/METABOLIC Hx Hyperthyroidism: No Hx Hypothyroidism: No - HEMATOLOGICAL/ONCOLOGICAL Hx AIDS: No Hx Human Immunodeficiency Virus (HIV): No - INTEGUMENTARY Hx Dermatological Problems: No - MUSCULOSKELETAL/RHEUMATOLOGICAL Hx Musculoskeletal Disorders: Yes (arthritis) Hx Back Pain: Yes Hx Falls: Yes Hx Herniated Disk: Yes - GASTROINTESTINAL Hx Gastrointestinal Disorders: Yes Hx Gastroesophageal Reflux: Yes - GENITOURINARY/GYNECOLOGICAL Hx Genitourinary Disorders: No - PSYCHIATRIC Hx Psychophysiologic Disorder: No Hx Substance Use: No - SURGICAL HISTORY Hx Surgeries: Yes Other/Comment: prostate sx?/rectal sx 1969 - ANESTHESIA Hx Anesthesia: Yes Hx Anesthesia Reactions: No Hx Malignant Hyperthermia: No Has any member of the family had a problem w/ anesthesia?: No Meds Allergies/Adverse Reactions: Allergies Allergy/AdvReac Type Severity Reaction Status Date / Time No Known Allergies Allergy Verified 08/24/17 16:10 - Medications Medications: Current Medications Alendronate Sodium (Fosamax) 70 mg PO SAT [facility] Atorvastatin Calcium (Lipitor) 10 mg PO DAILY [facility] Cholecalciferol (Vitamin D) iu PO DAILY [facility] Cyanocobalamin (Vitamin B12 1000 Mcg/Ml Inj) 1,000 mcg IM Q30D [facility] Cyclobenzaprine HCl (Flexeril) 10 mg PO TID [facility] Docusate Sodium (Colace) 100 mg PO DAILY [facility] Enoxaparin Sodium (Lovenox) 40 mg SC DAILY [facility] PRN Reason: Protocol Guaifenesin (Mucinex La) 600 mg PO Q12 [facility] Lactulose (Enulose) 20 gm PO Q4H PRN PRN Reason: Constipation Lactulose (Enulose) 20 gm PO DAILY [facility] Naproxen (Naproxen) 500 mg PO Q12H [facility] Pantoprazole Sodium (Protonix Ec Tab) 40 mg PO DAILY [facility] Timolol Maleate (Timoptic 0.5% Ophth Soln) 1 drop OU DAILY [facility] Valsartan (Diovan) 80 mg PO DAILY [facility] Physical Exam - Constitutional Appears: Non-toxic, No Acute Distress - Head Exam Head Exam: NORMAL INSPECTION - Eye Exam Eye Exam: EOMI, Normal appearance - ENT Exam ENT Exam: Mucous Membranes Moist - Respiratory Exam Respiratory Exam: Clear to Auscultation Bilateral - Cardiovascular Exam Cardiovascular Exam: REGULAR RHYTHM, +S1, +S2 - GI/Abdominal Exam GI & Abdominal Exam: Normal Bowel Sounds, Soft Additional comments: non tender to palpation in four quadrants no palpable hepato/splenomegaly - Rectal Exam Rectal Exam: Deferred Additional comments: Patient currently eating breakfast - Extremities Exam Extremities exam: Positive for: normal inspection - Neurological Exam Neurological exam: Alert, CN II-XII Intact, Oriented x3, Reflexes Normal - Psychiatric Exam Psychiatric exam: Normal Affect, Normal Mood - Skin Skin Exam: Dry, Intact, Normal Color, Warm Results - Vital Signs Recent Vital Signs: Last Vital Signs Temp 97.7 F 08/28/17 23:44 Pulse 86 08/28/17 23:44 Resp 20 08/28/17 23:44 BP 112/61 08/28/17 23:44 Pulse Ox 99 08/28/17 23:44 - Labs Result Diagrams: 08/29/17 07:00 08/29/17 07:00 Labs: Laboratory Results - last 24 hr 08/28/17 08/28/17 08/29/17 22:27 22:27 07:00 WBC 13.1 H 11.8 H RBC 4.23 L 3.84 L Hgb 13.6 12.4 Hct 40.7 36.9 MCV 96.3 H 96.1 H MCH 32.1 H 32.3 H MCHC 33.3 33.6 RDW 15.8 H 15.6 H Plt Count 290 261 MPV 8.0 Neut % (Auto) 70.7 Lymph % (Auto) 15.7 L Parker % (Auto) 10.4 H Eos % (Auto) 2.5 Baso % (Auto) 0.7 Neut # 9.3 H Lymph # 2.1 Parker # 1.4 H Eos # 0.3 Baso # 0.1 Sodium 143 Potassium 3.9 Chloride 108 H Carbon Dioxide 25 Anion Gap 14 BUN 19 Creatinine 1.0 Est GFR ( Amer) > 60 Est GFR (Non-Af Amer) > 60 Random Glucose 110 Calcium 8.5 Total Bilirubin AST ALT Alkaline Phosphatase Total Protein Albumin Globulin Albumin/Globulin Ratio Triglycerides Cholesterol LDL Cholesterol Direct HDL Cholesterol 08/29/17 07:00 WBC RBC Hgb Hct MCV MCH MCHC RDW Plt Count MPV Neut % (Auto) Lymph % (Auto) Parker % (Auto) Eos % (Auto) Baso % (Auto) Neut # Lymph # Parker # Eos # Baso # Sodium 140 Potassium 3.6 Chloride 108 H Carbon Dioxide 24 Anion Gap 12 BUN 15 Creatinine 0.9 Est GFR ( Amer) > 60 Est GFR (Non-Af Amer) > 60 Random Glucose 106 Calcium 7.9 L Total Bilirubin 0.7 AST 37 ALT 56 Alkaline Phosphatase 125 Total Protein 6.6 Albumin 3.3 L Globulin 3.3 Albumin/Globulin Ratio 1.0 Triglycerides 81 Cholesterol 114 LDL Cholesterol Direct 63 HDL Cholesterol 33 Assessment & Plan - Assessment and Plan (Free Text) Assessment: HTN Chronic back pain Constipation, fecal impaction Plan: - Diet as tolerated - Abdominal XR from yesterday reviewed by me showing fecal retention in rectum and left colon - Continue with lactulose, would add stool softner to bowel regimen to prevent recurrent symptoms - Administer another tap water enema today - Avoid use of narcotic pain medication as this may exacerbate underlying symptoms - No further planned GI intervention, will sign off case. Patient would benefit from additional outpatient follow up. Please reconsult as necessary, thank you.
[2017-08-29] MEDS: guaiFENesin 600 mg ER Tab PO SCH ×2 (08:58→21:11)
[2017-08-29] MEDS: Pantoprazole 40 mg EC Tab PO SCH (08:59)
[2017-08-29] MEDS: Naproxen 500 MG TAB PO SCH ×2 (08:59→18:56)
[2017-08-29] MEDS ORDERED: ALENDRONATE 70 MG TAB PO SCH (09:00)
--- NOTE | 2017-08-29 10:18 | CARD ---
APPROVED REPORT EKG Measurement Heart [id number] <Conclusion> Sinus rhythm with marked sinus arrhythmia with occasional premature ventricular complexes and premature atrial complexes Left axis deviation Right bundle branch block Septal infarct, age undetermined Abnormal ECG
[2017-08-29] MEDS: Enoxaparin 40 mg Syringe SC SCH (12:10)
--- NOTE | 2017-08-29 15:30 | RAD ---
HISTORY: Rectal pain. COMPARISON: Comparison made with chest radiograph 09/15/2016. . Comparison also made with CT scan of the chest dated 01/16/2010. FINDINGS: Heart remains enlarged. Coarsened/increased interstitial markings with scattered peribronchial cuffing changes. Findings could represent sequela of reactive/inflammatory airway disease and or viral illness. . Anterior pleural based calcification (small calcified pleural plaque) again seen in the left upper lobe. No evidence of free intraperitoneal air seen under the diaphragmatic surfaces. There is oral contrast material (given as part of a CT scan study of the abdomen pelvis dated 08/24/2017) seen opacifying the transverse and descending as well as sigmoid colon and rectum. Multiple colonic diverticula again seen arising from the descending and sigmoid colon which happen to be outlined by opaque contrast material. Multilevel degenerative spondylosis of the thoracic and lumbar spine the. IMPRESSION: Coarsened/ increased interstitial markings with scattered peribronchial cuffing changes. Rule out sequela of reactive/inflammatory airway disease or viral illness. The possibility of chronic interstitial disease/ fibrosis to be considered as well. . Small calcified pleural plaque left upper lobe No evidence of acute mechanical bowel obstruction. Multiple colonic diverticula again seen arising from the descending and sigmoid colon which relatively well seen due to the presence of oral contrast material which was given as part of a CT scan abdomen pelvis study 08/24/2017.
--- NOTE | 2017-08-29 20:03 | HP ---
CHIEF COMPLAINT: Fecal incontinence, constipation, and diarrhea. HISTORY OF PRESENT ILLNESS: This is an 86-year-old male, known case of hypertension, elevated cholesterol, osteoarthritis, chronic herniated disk leading to back pain, for which patient is on multiple narcotics and other pain medication, who was having fecal incontinence for 4 days, so patient was brought to the emergency room and was admitted for further management. The patient had been constipated and was treated for same, but the patient did not have good bowel movement and was continued to have fecal incontinence and leakage. REVIEW OF SYSTEMS: Positive for abdominal pain and fecal incontinence. Review of systems otherwise is negative for headache, dizziness, syncope, loss of consciousness, chest pain, shortness of breath, nausea, vomiting, any new joint or extremity pain. Review of systems of all other organ system is unremarkable. PAST MEDICAL HISTORY: Significant for hypertension, elevated cholesterol, herniated disk, back pain. PAST SURGICAL HISTORY: Unremarkable. PERSONAL HISTORY: Patient is currently nonsmoker, nondrinker, no substance abuse. MEDICATIONS: Patient is on Lipitor, Fosamax, vitamin B12, Protonix, Timoptic, Diovan, Percocet, Flexeril, naproxen, Motrin, lactulose, and Mucinex. ALLERGIES: THE PATIENT IS NOT ALLERGIC TO ANY MEDICATION. FAMILY HISTORY: Noncontributory. PHYSICAL EXAMINATION: GENERAL: Fairly-built, fairly-nourished, elderly frail male, in no acute distress. VITAL SIGNS: Temperature 97.7, pulse 86, respirations 20, blood pressure 112/61. HEENT: Pupils reacting to light. No JVD. No thyromegaly. No lymphadenopathy. No nystagmus. Normocephalic, atraumatic skull. HEART: S1 and S2, normal and regular. No significant murmur, gallop, or rub is heard. LUNGS: Show good bilateral air exchange. No rales or rhonchi. ABDOMEN: Soft, nontender. No distension. No sign of acute abdomen. No guarding. No rigidity. No rebound. Bowel sounds are present and normal. EXTREMITIES: No edema. No calf swelling. No tenderness. No acute ischemia. CENTRAL NERVOUS SYSTEM: Essentially unchanged. DIAGNOSTIC DATA: Available diagnostic data reviewed. WBC 13.1, hemoglobin 13.6, hematocrit 40.7, platelet 290. Sodium 143, potassium 3.9, chloride 108, bicarb 25, BUN 19, creatinine 0.1. Calcium is 8.5. Abdominal x-ray shows retained stool. ADMITTING IMPRESSION: Constipation, overflow incontinence, hypertension, elevated cholesterol, chronic back pain. PLAN: As ordered. Case and plan discussed with patient. Yo Mansfield MD
[2017-08-30] MEDS: Naproxen 500 MG TAB PO SCH ×2 (06:21→19:28)
[2017-08-30] MEDS ORDERED: Magnesium Citrate Oral SOL (300 ml) PO ONE (07:00)
[2017-08-30 07:33] LABS: ALKALINE PHOSPHATASE 120 U/L (38-126); ALT/SGPT 50 U/L (21-72); AST/SGOT 33 U/L (17-59); BILIRUBIN,TOTAL 0.7 mg/dl (0.2-1.3); BLOOD UREA NITROGEN 14 mg/dl (9-20); CALCIUM 8.2 mg/dL (8.4-10.2); CARBON DIOXIDE 26 mmol/L (22-30); CHLORIDE 107 mmol/L (98-107); GFR AFRICAN-AMERICAN > 60; GLUCOSE,RANDOM 98 mg/dL (75-110); POTASSIUM 3.5 MMOL/L (3.6-5.0); SODIUM 142 mmol/l (132-148); TOTAL PROTEIN 6.4 G/DL (6.3-8.2)
[2017-08-30 07:35] LABS: HEMATOCRIT 37.6 % (35.0-51.0); MEAN CELL VOLUME 96.7 fl (80.0-94.0); MEAN CORPUSCULAR HEMOGLOBIN 32.9 pg (27.0-31.0); MEAN CORPUSCULAR HGB CONC 34.1 g/dL (33.0-37.0); RED CELL DISTRIBUTION WIDTH 15.8 % (11.5-14.5); WHITE BLOOD COUNT 14.4 K/uL (4.8-10.8)
[2017-08-30 07:37] LABS: ALB/GLOB RATIO 0.9 (1.0-2.1)
--- NOTE | 2017-08-30 08:19 | PN ---
DATE: 08/30/2017 SUBJECTIVE: The patient is seen and examined. Interim events noted. Consults noted and appreciated. Gastroenterology followup and intervention noted and appreciated. Case was discussed with door frame assembler machine yesterday. The patient has some response to enema, but no solid stool yet. The patient feels okay. Denies any abdominal discomfort or any bleeding. No diarrhea or incontinence at this time. PHYSICAL EXAMINATION: GENERAL: The patient is in no acute distress. VITAL SIGNS: Stable. HEART: S1 and S2, normal and regular. LUNGS: Good bilateral air entry. ABDOMEN: Soft, nontender. EXTREMITIES: No edema. No calf swelling. No tenderness. No acute ischemia. CENTRAL NERVOUS SYSTEM: Essentially unchanged. DIAGNOSTIC DATA: Available diagnostic data reviewed. ASSESSMENT AND PLAN: Overall, the patient's general medical condition is stable. Still looks like has a lot of stool retention, but no sign of acute abdomen, obstruction or infection. Plan as ordered. Case and plan were discussed with the patient. Yo Mansfield MD
[2017-08-30] MEDS: Enoxaparin 40 mg Syringe SC SCH (09:19)
[2017-08-30] MEDS: guaiFENesin 600 mg ER Tab PO SCH ×2 (09:19→20:54)
[2017-08-30] MEDS: Pantoprazole 40 mg EC Tab PO SCH (09:19)
--- NOTE | 2017-08-30 16:39 | RAD ---
PROCEDURE: Lumbar spine dated 08/30/2017. HISTORY: Pain to L-S area COMPARISON: Comparison made with prior study 07/27/2013. FINDINGS: BONES: Current study re- demonstrates chronic anterior wedge compression fracture L1 segment with near vertebral plana appearance of the anterior 2/3 of this vertebral body segment. Minor chronic anterior stature loss of T10, T11 and T12 segments in somewhat decreasing order of severity. There is also a moderate levoscoliosis centered at this level. DISC SPACES: Multilevel degenerative spondylosis. Changes include varying degrees of disc space narrowing, endplate eburnation and anterolateral as well as small posterior osteophyte formation. Mild multilevel facet arthropathy. OTHER FINDINGS: None. IMPRESSION: Chronic anterior wedge compression fracture L1 segment with moderate levoscoliosis centered at this level. There also mild chronic anterior wedge deformities of the T10, T11 and T12 segments in somewhat decreasing order of severity.
[2017-08-30] MEDS: guaiFENesin 200 mg/10 ml Syrup UD PO PRN (19:56)
[2017-08-31] MEDS: Naproxen 500 MG TAB PO SCH ×2 (05:54→17:46)
[2017-08-31 06:10] LABS: BASO # 0.1 K/uL (0.0-0.2); BASO % 0.6 % (0.0-2.0); EOS # 0.5 K/uL (0.0-0.7); EOS % 2.9 % (0.0-4.0); LYMPH # 1.5 K/uL (1.0-4.3); LYMPH % 8.4 % (20.0-40.0); MEAN CELL VOLUME 97.8 fl (80.0-94.0); MEAN CORPUSCULAR HEMOGLOBIN 32.3 pg (27.0-31.0); MEAN PLATELET VOLUME 8.5 fl (7.2-11.7); MONO # 1.4 K/uL (0.0-0.8); MONO % 7.6 % (0.0-10.0); NEUT # 14.7 K/uL (1.8-7.0); NEUT % 80.5 % (50.0-75.0); PLATELET COUNT 252 K/uL (130-400); RED CELL DISTRIBUTION WIDTH 15.5 % (11.5-14.5); WHITE BLOOD COUNT 18.3 K/uL (4.8-10.8)
[2017-08-31 06:23] LABS: ALKALINE PHOSPHATASE 130 U/L (38-126); ALT/SGPT 45 U/L (21-72); AST/SGOT 27 U/L (17-59); BILIRUBIN,TOTAL 0.7 mg/dl (0.2-1.3); BLOOD UREA NITROGEN 14 mg/dl (9-20); CALCIUM 7.9 mg/dL (8.4-10.2); CARBON DIOXIDE 25 mmol/L (22-30); CHLORIDE 106 mmol/L (98-107); GFR AFRICAN-AMERICAN > 60; GLUCOSE,RANDOM 107 mg/dL (75-110); POTASSIUM 3.9 MMOL/L (3.6-5.0); SODIUM 141 mmol/l (132-148); TOTAL PROTEIN 6.5 G/DL (6.3-8.2)
[2017-08-31 06:30] LABS: ALB/GLOB RATIO 0.9 (1.0-2.1)
[2017-08-31] MEDS: Enoxaparin 40 mg Syringe SC SCH (08:58)
[2017-08-31] MEDS: Pantoprazole 40 mg EC Tab PO SCH (08:59)
[2017-08-31] MEDS: guaiFENesin 600 mg ER Tab PO SCH ×2 (09:01→21:02)
[2017-08-31 10:56] LABS: EOSINOPHIL 4 % (0-7); NEUTROPHIL 82 % (42-75); TOTAL CELLS COUNTED 100
--- NOTE | 2017-08-31 11:53 | RAD ---
HISTORY: Cough. Portable semi erect study 20:47. COMPARISON: 08/28/2017. 08/24/2017 FINDINGS: LUNGS: No active pulmonary disease. PLEURA: No significant pleural effusion identified, no pneumothorax apparent. CARDIOVASCULAR: No radiographic findings to suggest acute or significant cardiovascular disease. OSSEOUS STRUCTURES: No acute findings. VISUALIZED UPPER ABDOMEN: Normal. OTHER FINDINGS: None. IMPRESSION: No active disease. No significant interval change compared to the prior examination(s).
--- NOTE | 2017-08-31 12:27 | PQF GENQUE ---
Dr. Mansfield, Torpedo Worker documented the following information with no mention of this diagnosis in your documentation. Please indicate in your next progress note and /or discharge summary your agreement with solutions consultant or provide clarification that this diagnosis is not a current condition. (1) Diagnosis: Fecal Impaction Documented by: ER MD and GI solutions consultant Location: consult versus (2) Drug - related Constipation : i.e. opiod or other pain meds or overuse of laxatives etc. (3) If drug related constipation was the medication taken as prescribed? 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 ADMITTING IMPRESSION: Constipation, overflow incontinence, hypertension, elevated cholesterol, chronic back pain GI consult: Assessment: HTN Chronic back pain Constipation, fecal impaction Plan: Diet as tolerated - Abdominal XR from yesterday reviewed by me showing fecal retention in rectum and left colon - Continue with lactulose, would add stool softner to bowel regimen to prevent recurrent symptoms - Administer another tap water enema today - Avoid use of narcotic pain medication as this may exacerbate underlying symptoms This form is a permanent part of the medical record Clarification of your documentation is requested to better reflect the severity of illness and intensity of treatment of your patient. Indicators present [] Specify: [] [] Specify: [] [] Specify: [] [] Specify: [] Location in the medical record that reflects the above clinical findings: [] Treatment Provided: [] PHYSICIAN'S RESPONSE Based on your medical judgment of the clinical indicators outlined above please clarify the following: [] Practitioner response [] If unable to determine, please check the box, sign and date. Present On Admission (POA) Indicator: [] Present at the time of admission [] Not present at the time of admission [] Clinically Undetermined In responding to this query, please exercise your independent professional judgment. The fact that a question is asked does not imply that any particular answer is desired or expected. Thank you for your clarification on this documentation. If you have any questions please call. * Thank you, Leigha Vail RN ext. #[phone] MTDD
[2017-09-01 06:20] LABS: RBC URINE < 1 /hpf (0-3); URINE BACTERIA RARE (<OCC); URINE BILIRUBIN NEGATIVE (NEGATIVE); URINE BLOOD NEGATIVE (NEGATIVE); URINE COLOR YELLOW (YELLOW); URINE GLUCOSE (UA) NEG (Normal); URINE KETONE NEGATIVE (NEGATIVE); URINE LEUKOCYTE ESTERASE NEG Leu/uL (Negative); URINE PROTEIN NEGATIVE (NEGATIVE); URINE UROBILINOGEN 0.2-1.0 mg/dL (0.2-1.0); WBC URINE 1 /hpf (0-5)
[2017-09-01] MEDS: Naproxen 500 MG TAB PO SCH ×2 (06:27→17:31)
--- NOTE | 2017-09-01 08:37 | PN ---
DATE: 08/31/2017 SUBJECTIVE: The patient is seen and examined. Interim events noted. The patient complained of back pain. X-rays were done. No acute pathology. The patient has chronic wedge fractures. Pain is adequately controlled. The patient also has constipation. PHYSICAL EXAMINATION: GENERAL: The patient is in no acute distress. VITAL SIGNS: Stable. HEART: S1 and S2, normal and regular. LUNGS: Good bilateral air entry. ABDOMEN: Soft, nontender. No sign of acute abdomen. No guarding. No rigidity. No rebound. Bowel sounds are plus and normal. EXTREMITIES: No edema. No calf swelling. No tenderness. No acute ischemia. CENTRAL NERVOUS SYSTEM: Essentially unchanged. DATA: Available diagnostic data reviewed. ASSESSMENT: Overall, the patient's general medical condition is stable. PLAN: As ordered. Yo Mansfield MD
[2017-09-01] MEDS: Enoxaparin 40 mg Syringe SC SCH (10:15)
[2017-09-01] MEDS: guaiFENesin 600 mg ER Tab PO SCH ×2 (10:16→21:31)
[2017-09-01] MEDS: Pantoprazole 40 mg EC Tab PO SCH (10:17)
[2017-09-01] MEDS: Azithromycin 500 MG in Sodium Chloride 0.9% 250 ML IVPB SCH (12:11)
--- NOTE | 2017-09-01 12:23 | CP.PCM.PN ---
Subjective - Date & Time of Evaluation Date of Evaluation: 09/01/17 Time of Evaluation: 07:35 - Subjective Subjective: Patient seen and examined in MedSur unit this morning with Dr. Mansfield Patient has not yet had a BM. Denies abdominal pain, N/V. Tolerating PO diet. Afebrile, but WBC trending up Objective - Vital Signs/Intake and Output Vital Signs (last 24 hours): Temp Pulse Resp BP Pulse Ox 97.4 F L 71 20 107/68 97 09/01/17 08:31 09/01/17 08:31 09/01/17 08:31 09/01/17 08:31 09/01/17 08:31 - Medications Medications: Current Medications Alendronate Sodium (Fosamax) 70 mg PO SAT [facility] Last Admin: 08/29/17 08:58 Dose: 70 mg Atorvastatin Calcium (Lipitor) 10 mg PO DAILY [facility] Last Admin: 09/01/17 10:15 Dose: 10 mg Cholecalciferol (Vitamin D) 1,000 iu PO DAILY [facility] Last Admin: 09/01/17 10:17 Dose: 1,000 iu Cyanocobalamin (Vitamin B12 1000 Mcg/Ml Inj) 1,000 mcg IM Q30D [facility] Cyclobenzaprine HCl (Flexeril) 10 mg PO TID [facility] Last Admin: 09/01/17 10:14 Dose: 10 mg Docusate Sodium (Colace) 100 mg PO DAILY [facility] Last Admin: 09/01/17 10:12 Dose: 100 mg Enoxaparin Sodium (Lovenox) 40 mg SC DAILY [facility] PRN Reason: Protocol Last Admin: 09/01/17 10:15 Dose: 40 mg Guaifenesin (Mucinex La) 600 mg PO Q12 [facility] Last Admin: 09/01/17 10:16 Dose: 600 mg Guaifenesin (Robitussin) 200 mg PO Q6 PRN PRN Reason: Cough Last Admin: 08/30/17 19:56 Dose: 200 mg Azithromycin 500 mg/ Sodium (Chloride) 250 mls @ 250 mls/hr IVPB DAILY [facility] PRN Reason: Protocol Last Admin: 09/01/17 12:11 Dose: 250 mls/hr Ketorolac Tromethamine (Toradol) 15 mg IVP Q6 PRN PRN Reason: Pain, moderate (4-7) Last Admin: 08/31/17 10:18 Dose: 15 mg Lactulose (Enulose) 20 gm PO Q4H PRN PRN Reason: Constipation Lactulose (Enulose) 20 gm PO DAILY [facility] Last Admin: 09/01/17 10:13 Dose: Not Given Naproxen (Naproxen) 500 mg PO Q12H [facility] Last Admin: 09/01/17 06:27 Dose: 500 mg Pantoprazole Sodium (Protonix Ec Tab) 40 mg PO DAILY [facility] Last Admin: 09/01/17 10:17 Dose: 40 mg Timolol Maleate (Timoptic 0.5% Ophth Soln) 1 drop OU DAILY [facility] Last Admin: 09/01/17 10:17 Dose: 1 drop Valsartan (Diovan) 80 mg PO DAILY [facility] Last Admin: 08/31/17 08:59 Dose: Not Given - Labs Labs: 08/31/17 05:30 08/31/17 05:30 - Constitutional Appears: No Acute Distress - ENT Exam ENT Exam: Mucous Membranes Moist - Respiratory Exam Respiratory Exam: Clear to Ausculation Bilateral, NORMAL BREATHING PATTERN - Cardiovascular Exam Cardiovascular Exam: REGULAR RHYTHM, +S1, +S2 - GI/Abdominal Exam GI & Abdominal Exam: Soft, Normal Bowel Sounds. absent: Distended, Tenderness - Extremities Exam Extremities Exam: Normal Inspection. absent: Calf Tenderness, Pedal Edema - Neurological Exam Neurological Exam: Alert, Awake, Oriented x3 Assessment and Plan (1) Fecal impaction Assessment & Plan: no evidence of acute mechanical bowel obstruction on abd/chest x ray on 08/28/17 repeat erect abd x ray Dulcolax HI once Status: Acute (2) Hypertension Assessment & Plan: Valsartan on hold for today because low BP f/u BP Status: Chronic (3) Leukocytosis Assessment & Plan: Unclear etiology Afebrile WBC trending up RBC and platelet wnl will start Azithromycin IV for empiric treatment CXR on 08/30/17 showed no active disease f/u CBC Status: Acute (4) DVT prophylaxis Assessment & Plan: Lovenox SC Status: Acute
[2017-09-01 14:01] LABS: HEMATOCRIT 38.3 % (35.0-51.0); MEAN CELL VOLUME 97.1 fl (80.0-94.0); MEAN CORPUSCULAR HEMOGLOBIN 32.1 pg (27.0-31.0); MEAN CORPUSCULAR HGB CONC 33.1 g/dL (33.0-37.0); RED CELL DISTRIBUTION WIDTH 15.9 % (11.5-14.5); WHITE BLOOD COUNT 12.8 K/uL (4.8-10.8)
[2017-09-01] MEDS ORDERED: Sodium Chloride 0.9% 250 ML IV SCH ×2 (15:45→16:15)
[2017-09-01] MEDS: Sodium Chloride 0.9% 500 ML IV SCH ×2 (16:08→17:13)
--- NOTE | 2017-09-01 16:54 | RAD ---
HISTORY: Fecal impaction COMPARISON: 08/28/2017 FINDINGS: BOWEL: Dilatation of colon and to lesser extent small bowel. Decubitus views are negative for visualize free air. BONES: Normal. OTHER FINDINGS: None. IMPRESSION: Constipation without fecal impaction or obstruction. No free air identified
[2017-09-02] MEDS: Sodium Chloride 0.9% 500 ML IV SCH ×4 (02:00→22:42)
[2017-09-02] MEDS: Naproxen 500 MG TAB PO SCH ×2 (06:20→17:41)
[2017-09-02] MEDS ORDERED: Magnesium Citrate Oral SOL (300 ml) PO ONE (07:19)
[2017-09-02 07:30] LABS: HEMATOCRIT 39.1 % (35.0-51.0); MEAN CELL VOLUME 97.9 fl (80.0-94.0); MEAN CORPUSCULAR HEMOGLOBIN 32.1 pg (27.0-31.0); MEAN CORPUSCULAR HGB CONC 32.8 g/dL (33.0-37.0); RED CELL DISTRIBUTION WIDTH 15.4 % (11.5-14.5); WHITE BLOOD COUNT 9.4 K/uL (4.8-10.8)
[2017-09-02 07:52] LABS: ALB/GLOB RATIO 0.8 (1.0-2.1); ALKALINE PHOSPHATASE 120 U/L (38-126); ALT/SGPT 70 U/L (21-72); AST/SGOT 68 U/L (17-59); BILIRUBIN,TOTAL 0.6 mg/dl (0.2-1.3); BLOOD UREA NITROGEN 18 mg/dl (9-20); CARBON DIOXIDE 28 mmol/L (22-30); CHLORIDE 105 mmol/L (98-107); GFR AFRICAN-AMERICAN > 60; GLUCOSE,RANDOM 85 mg/dL (75-110); POTASSIUM 4.2 MMOL/L (3.6-5.0); SODIUM 141 mmol/l (132-148); TOTAL PROTEIN 6.3 G/DL (6.3-8.2)
[2017-09-02] MEDS: Azithromycin 500 MG in Sodium Chloride 0.9% 250 ML IVPB SCH (09:11)
[2017-09-02] MEDS: Enoxaparin 40 mg Syringe SC SCH (09:38)
[2017-09-02] MEDS: guaiFENesin 600 mg ER Tab PO SCH ×2 (09:41→20:57)
[2017-09-02] MEDS: Pantoprazole 40 mg EC Tab PO SCH (09:42)
[2017-09-02] MEDS ORDERED: Albuterol-Ipratrop 3 mg / 0.5 (3 ml) UD INH PRN (09:46)
[2017-09-02] MEDS: guaiFENesin 200 mg/10 ml Syrup UD PO PRN ×2 (13:59→21:00)
--- NOTE | 2017-09-02 14:38 | CP.PCM.PN ---
Subjective - Date & Time of Evaluation Date of Evaluation: 09/02/17 Time of Evaluation: 06:50 - Subjective Subjective: Patient seen and examined with Dr. Mansfield in MedSurg unit this morning. Patient had a large BM yesterday after Dulcolax [place] Afebrile, but continues with low BP No event overnight Objective - Vital Signs/Intake and Output Vital Signs (last 24 hours): Temp Pulse Resp BP Pulse Ox 97.2 F L 68 20 87/53 L 95 09/02/17 08:41 09/02/17 10:01 09/02/17 08:41 09/02/17 09:45 09/02/17 08:41 - Medications Medications: Current Medications Albuterol/Ipratropium (Duoneb 3 Mg/0.5 Mg (3 Ml) Ud) 3 ml INH RQ6 PRN PRN Reason: Shortness of Breath Last Admin: 09/02/17 10:00 Dose: 3 ml Alendronate Sodium (Fosamax) 70 mg PO SAT [facility] Last Admin: 08/29/17 08:58 Dose: 70 mg Atorvastatin Calcium (Lipitor) 10 mg PO DAILY [facility] Last Admin: 09/02/17 09:38 Dose: 10 mg Cholecalciferol (Vitamin D) 1,000 iu PO DAILY [facility] Last Admin: 09/02/17 09:43 Dose: 1,000 iu Cyanocobalamin (Vitamin B12 1000 Mcg/Ml Inj) 1,000 mcg IM Q30D [facility] Cyclobenzaprine HCl (Flexeril) 10 mg PO TID [facility] Last Admin: 09/02/17 13:59 Dose: 10 mg Docusate Sodium (Colace) 100 mg PO DAILY [facility] Last Admin: 09/02/17 09:36 Dose: 100 mg Enoxaparin Sodium (Lovenox) 40 mg SC DAILY [facility] PRN Reason: Protocol Last Admin: 09/02/17 09:38 Dose: 40 mg Guaifenesin (Mucinex La) 600 mg PO Q12 [facility] Last Admin: 09/02/17 09:41 Dose: 600 mg Guaifenesin (Robitussin) 200 mg PO Q6 PRN PRN Reason: Cough Last Admin: 09/02/17 13:59 Dose: 200 mg Sodium Chloride (Sodium Chloride 0.9%) 500 mls @ 50 mls/hr IV .Q10H [facility] Last Admin: 09/02/17 10:15 Dose: 50 mls/hr Azithromycin 500 mg/ Dextrose 250 mls @ 250 mls/hr IVPB DAILY [facility] PRN Reason: Protocol Ketorolac Tromethamine (Toradol) 15 mg IVP Q6 PRN PRN Reason: Pain, moderate (4-7) Last Admin: 08/31/17 10:18 Dose: 15 mg Lactulose (Enulose) 20 gm PO Q4H PRN PRN Reason: Constipation Lactulose (Enulose) 20 gm PO DAILY [facility] Last Admin: 09/01/17 10:13 Dose: Not Given Naproxen (Naproxen) 500 mg PO Q12H [facility] Last Admin: 09/02/17 06:20 Dose: 500 mg Pantoprazole Sodium (Protonix Ec Tab) 40 mg PO DAILY [facility] Last Admin: 09/02/17 09:42 Dose: 40 mg Timolol Maleate (Timoptic 0.5% Ophth Soln) 1 drop OU DAILY [facility] Last Admin: 09/02/17 09:42 Dose: 1 drop - Labs Labs: 09/02/17 07:05 09/02/17 07:05 - Constitutional Appears: Non-toxic, No Acute Distress - ENT Exam ENT Exam: Mucous Membranes Moist - Respiratory Exam Respiratory Exam: Clear to Ausculation Bilateral, NORMAL BREATHING PATTERN - Cardiovascular Exam Cardiovascular Exam: REGULAR RHYTHM, +S1, +S2 - GI/Abdominal Exam GI & Abdominal Exam: Soft, Normal Bowel Sounds. absent: Distended, Firm, Guarding, Rigid, Tenderness - Extremities Exam Extremities Exam: Normal Inspection. absent: Calf Tenderness, Pedal Edema - Neurological Exam Neurological Exam: Alert, Awake - Skin Skin Exam: Dry, Intact, Pallor Assessment and Plan (1) Constipated Assessment & Plan: drug related constipation Abdominal x ray yesterday showed constipation without fecal impaction or obstruction c/w current management Status: Acute (2) Leukocytosis Assessment & Plan: resolved today c/w empiric azithromycin Status: Acute (3) Hypotension Assessment & Plan: unclear etiology could be 2/2 poor fluids intake BUN/Cr: WNL held Valsartan for now IV fluids Status: Acute (4) DVT prophylaxis Assessment & Plan: LOvenox 40 mg SC daily Status: Acute (5) Physical deconditioning Assessment & Plan: PT evaluation recommended subacute rehab Status: Acute
[2017-09-02 18:22] LABS: PARTIAL THROMBOPLASTIN TIME 35.4 Seconds (25.6-37.1)
--- NOTE | 2017-09-03 01:57 | CON ---
DATE: CARDIOLOGY CONSULTATION REASON FOR CONSULTATION: Hypotension. 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 The patient is unaware of any prior cardiac history and denies any chest pain or shortness of breath. The patient was noted to be hypotensive this morning; the lowest blood pressure was 87/53. The patient is not in any distress at this point. SOCIAL HISTORY: The patient is a former smoker, he quit 25 years ago. He is , lives with his elderly , uses a walking cane at home, never had children. MEDICATIONS: Zithromax 500 mg daily, Colace 100 mg daily, lactulose 20 mg p.o. q. 4 hours p.r.n., Flexeril 10 mg t.i.d., Fosamax 70 mg every Thursday, Lipitor 10 mg once a day, Lovenox 40 mg subcutaneous once a day, Naproxen 500 mg twice a day, Robitussin 200 mg p.o. q. 6 hours, Protonix 40 mg p.o. daily. REVIEW OF SYSTEMS: No fever or chills and no nausea or vomiting. PHYSICAL EXAMINATION: GENERAL: The patient is an elderly male who does not appear to be in acute distress. VITAL SIGNS: At this time, blood pressure 87/53, heart rate 68, temperature 97.2, respirations 20. HEENT: Head is normocephalic. CHEST: Diminished breath sounds over the bases. HEART: S1 and S2, regular. ABDOMEN: Soft. EXTREMITIES: No edema. LABORATORY DATA: Hemoglobin and hematocrit 12.8 and 39.1, white count 9.4, platelet count 148,000. White count was elevated since admission. It did normalize today. SMA-7; sodium 141, potassium 4.2, chloride 105, CO2 28, glucose is 85, BUN 18, creatinine 1.0, TSH level is 2.52. Abdomen CAT scan without contrast; coarsened/increased interstitial marking with scattered peribronchial cuffing changes. The possibility of chronic interstitial disease/fibrosis to be considered, as well as sequelae of reactive/inflammatory airway disease or viral illness. No evidence of acute mechanical bowel obstruction. Multiple colonic diverticula seen from the descending and sigmoid colon. Lumbosacral spine x-ray; chronic anterior wedge compression fracture of L1 segment with moderate levoscoliosis at this level. There is mild chronic anterior wedge deformity of T10/T11 and T12 segments in somewhat decreasing order of severity. Chest x-ray, no active disease. EKG revealed sinus rhythm with APCs and PVCs, right bundle-branch block. ASSESSMENT: 1. Hypotension, rule out underlying sepsis. 2. Fecal impaction. 3. Possible interstitial lung disease, by CT scan findings. 4. 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 RECOMMENDATIONS: Continue current IV Zithromax 500 mg daily. Continue lactulose, Flexeril, Lipitor, prophylactic subcutaneous Lovenox. Obtain repeat 12-lead EKG, PT, PTT and D-dimer, and schedule patient for the echocardiogram. Wilfrido Dave MD
[2017-09-03] MEDS: Naproxen 500 MG TAB PO SCH ×2 (06:44→21:12)
[2017-09-03] MEDS: Sodium Chloride 0.9% 500 ML IV SCH ×2 (06:45→16:21)
[2017-09-03 08:40] VITALS: RESP 20
[2017-09-03] MEDS: guaiFENesin 600 mg ER Tab PO SCH ×2 (08:47→21:13)
[2017-09-03] MEDS: Pantoprazole 40 mg EC Tab PO SCH (08:48)
[2017-09-03] MEDS: Enoxaparin 40 mg Syringe SC SCH (08:49)
--- NOTE | 2017-09-03 10:47 | CARD ---
APPROVED REPORT EKG Measurement Heart [id number] <Conclusion> Sinus rhythm with marked sinus arrhythmia Left axis deviation Right bundle branch block Abnormal ECG
[2017-09-03] MEDS ORDERED: Iodixanol 320 MG/ML 100 ML BOTTLE IV ONE (11:12)
--- NOTE | 2017-09-03 12:11 | CARD ---
APPROVED REPORT EXAM: Two-dimensional and M-mode echocardiogram with Doppler and color Doppler. Other Information Quality : GoodRhythm : Atrial Fibrillation INDICATION Hypotension 2D DIMENSIONS IVSd1.36 (0.7-1.1cm)LVDd4.47 (3.9-5.9cm) LVOT Diameter2.20 (1.8-2.4cm)PWd1.22 (0.7-1.1cm) IVSs1.58 (0.8-1.2cm)LVDs4.22 (2.5-4.0cm) FS (%) 5.6 %PWs1.50 (0.8-1.2cm) M-Mode DIMENSIONS Left Atrium (MM)5.66 (2.5-4.0cm)Aortic Root3.51 (2.2-3.7cm) Aortic Cusp Exc.0.89 (1.5-2.0cm) Aortic Valve AoV Peak Mjaojrnc946.8cm/sAoV VTI70.9cmAO Peak GR.38mmHg LVOT Peak Gfchjfqx93.8cm/sLVOT VTI14.52cmAO Mean GR.24mmHg MARTHA (VMAX)0.65xh6MKT (VTI)0.43cm2 Mitral Valve MV E Gmqbmvvk04.8cm/sMV DECEL [id number] A Prlkanuy07.6cm/s MV BPC35exK/A ratio1.5MVA (PHT)4.52cm2 TDI Lateral E' Peak V8.96cm/sMedial E' Peak V6.36cm/sE/Lateral E'7.2 E/Medial E'10.2 Pulmonary Valve PV Peak Uquwbpks16.8cm/s Tricuspid Valve TR Peak Kpiyrwpa439bc/sRAP SFQWMOKI71qqNhHU Peak Gr.23mmHg [id number] LEFT VENTRICLE The left ventricle is normal size. There is mild concentric left ventricular hypertrophy. Left ventricle systolic function is mildly impaired. The Ejection Fraction is - 40-45%. The inferior and posterior montanez appear significantly hypokinetic. The anterior and septal montanez are mildly hypokinetic. Parts of the apex appear hypokinetic in some views. The lateral wall has good contraction. The left ventricular diastolic function is normal. No left ventricle thrombus noted on this study. There is no ventricular septal defect visualized. 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 There is no mass noted in the left ventricle. RIGHT VENTRICLE The right ventricle is normal size. There is normal right ventricular wall thickness. The right ventricular systolic function is normal. ATRIA The left atrium is moderately dilated on the 2D study. There is no thrombus suspected in the left atrium. The right atrium size is normal. The interatrial septum is intact with no evidence for an atrial septal defect. AORTIC VALVE The aortic valve is severely calcified. There is moderate aortic regurgitation. There is severe valvular aortic stenosis. Calculated aortic valve area is 0.7 cm2 with maximum pressure gradient of 37 mmHg and mean pressure gradient of 23 mmHg. MITRAL VALVE The mitral valve leaflets are mildly thickened. There is no evidence of mitral valve prolapse. There is no mitral valve stenosis. Mitral regurgitation is moderate. TRICUSPID VALVE The tricuspid valve is normal in structure. There is mild tricuspid regurgitation. Right ventricular systolic pressure is estimated at 33 mmHg. There is no tricuspid valve prolapse or vegetation. There is no tricuspid valve stenosis. PULMONIC VALVE The pulmonic valve is not well visualized. There is no pulmonic valvular regurgitation. GREAT VESSELS The aortic root is normal in size. The IVC was not visualized. PERICARDIAL EFFUSION The pericardium appears normal. There is no pleural effusion. <Conclusion> The left ventricle is normal size. There is mild concentric left ventricular hypertrophy. Left ventricle systolic function is mildly impaired. The Ejection Fraction is - 40-45%. The left atrium is moderately dilated on the 2D study. There is severe valvular aortic stenosis. Calculated aortic valve area is 0.7 cm2 with maximum pressure gradient of 37 mmHg and mean pressure gradient of 23 mmHg. The mitral valve leaflets are mildly thickened but not stenotic There is moderate aortic regurgitation, moderate mitral regurgitation and mild tricuspid regurgitation.
--- NOTE | 2017-09-03 12:35 | CP.PCM.PN ---
Subjective - Date & Time of Evaluation Date of Evaluation: 09/03/17 Time of Evaluation: 07:15 - Subjective Subjective: Patient seen and examined with attednign , Dr. Mansfield, in MedSurg unit this morning. Patient alert, and awake at the time evaluation. As per nurse, patient had 3 BMs yesterday, and 1 BM today. BP still in low levels, Valsartan still on hold because low BP Afebrile, and leukocytosis resolved yesterday Had an uneventful night Objective - Vital Signs/Intake and Output Vital Signs (last 24 hours): Temp Pulse Resp BP Pulse Ox 97.3 F L 68 20 96/60 L 98 09/03/17 08:40 09/03/17 08:40 09/03/17 08:40 09/03/17 08:40 09/03/17 08:40 - Medications Medications: Current Medications Albuterol/Ipratropium (Duoneb 3 Mg/0.5 Mg (3 Ml) Ud) 3 ml INH RQ6 PRN PRN Reason: Shortness of Breath Last Admin: 09/02/17 10:00 Dose: 3 ml Alendronate Sodium (Fosamax) 70 mg PO SAT [facility] Last Admin: 08/29/17 08:58 Dose: 70 mg Atorvastatin Calcium (Lipitor) 10 mg PO DAILY [facility] Last Admin: 09/03/17 08:48 Dose: 10 mg Cholecalciferol (Vitamin D) 1,000 iu PO DAILY [facility] Last Admin: 09/03/17 08:48 Dose: 1,000 iu Cyanocobalamin (Vitamin B12 1000 Mcg/Ml Inj) 1,000 mcg IM Q30D [facility] Cyclobenzaprine HCl (Flexeril) 10 mg PO TID [facility] Last Admin: 09/03/17 08:48 Dose: 10 mg Docusate Sodium (Colace) 100 mg PO DAILY [facility] Last Admin: 09/03/17 08:49 Dose: 100 mg Enoxaparin Sodium (Lovenox) 40 mg SC DAILY [facility] PRN Reason: Protocol Last Admin: 09/03/17 08:49 Dose: 40 mg Guaifenesin (Mucinex La) 600 mg PO Q12 [facility] Last Admin: 09/03/17 08:47 Dose: 600 mg Guaifenesin (Robitussin) 200 mg PO Q6 PRN PRN Reason: Cough Last Admin: 09/02/17 21:00 Dose: 200 mg Sodium Chloride (Sodium Chloride 0.9%) 500 mls @ 50 mls/hr IV .Q10H [facility] Last Admin: 09/03/17 06:45 Dose: Not Given Azithromycin 500 mg/ Dextrose 250 mls @ 250 mls/hr IVPB DAILY [facility] PRN Reason: Protocol Last Admin: 09/03/17 08:46 Dose: 250 mls/hr Ketorolac Tromethamine (Toradol) 15 mg IVP Q6 PRN PRN Reason: Pain, moderate (4-7) Last Admin: 08/31/17 10:18 Dose: 15 mg Lactulose (Enulose) 20 gm PO Q4H PRN PRN Reason: Constipation Lactulose (Enulose) 20 gm PO DAILY [facility] Last Admin: 09/01/17 10:13 Dose: Not Given Naproxen (Naproxen) 500 mg PO Q12@0900,2100 [facility] Pantoprazole Sodium (Protonix Ec Tab) 40 mg PO DAILY [facility] Last Admin: 09/03/17 08:48 Dose: 40 mg Timolol Maleate (Timoptic 0.5% Ophth Soln) 1 drop OU DAILY [facility] Last Admin: 09/03/17 08:47 Dose: 1 drop - Labs Labs: 09/02/17 07:05 09/02/17 07:05 PT 12.2 Seconds (9.8-13.1) 09/02/17 05:45 INR 1.1 (0.9-1.2) 09/02/17 05:45 APTT 35.4 Seconds (25.6-37.1) 09/02/17 05:45 - Constitutional Appears: Non-toxic, No Acute Distress - ENT Exam ENT Exam: Mucous Membranes Moist - Respiratory Exam Respiratory Exam: Clear to Ausculation Bilateral, NORMAL BREATHING PATTERN. absent: Rales, Rhonchi, Wheezes, Stridor - Cardiovascular Exam Cardiovascular Exam: REGULAR RHYTHM, +S1, +S2 - GI/Abdominal Exam GI & Abdominal Exam: Soft, Normal Bowel Sounds. absent: Guarding, Rigid, Tenderness - Extremities Exam Extremities Exam: Normal Inspection. absent: Calf Tenderness, Pedal Edema - Neurological Exam Neurological Exam: Alert, Awake, Oriented x3 Assessment and Plan (1) Constipation Assessment & Plan: Drug related constipation Had 3 soft stools yesterday, and 1 watery stool today Held Lactulose since yesterday Status: Acute (2) Hypotension Assessment & Plan: unclear etiology could be 2/2 poor fluids intake, r/o sepsis c/w empiric azithromycin BUN/Cr: WNL held Valsartan for now IV fluids Blood culture on 08/31/17 has shown no growth for 3 days Urine culture on 08/31/17 showed possible contamination Cardiology consulted. Recommendations appreciated. Status: Acute (3) DVT prophylaxis Assessment & Plan: LOvenox 40 mg SC daily Status: Acute (4) Physical deconditioning Assessment & Plan: PT evaluation recommended subacute rehab Status: Acute
[2017-09-03] MEDS: guaiFENesin 200 mg/10 ml Syrup UD PO PRN ×2 (12:41→21:16)
--- NOTE | 2017-09-03 13:06 | CT ---
PROCEDURE: CT Chest with contrast (Pulmonary Angiogram) HISTORY: r/o PE COMPARISON: 01/16/2010 TECHNIQUE: Axial computed tomography images were obtained of the chest in the pulmonary arterial phase of enhancement. Coronal and sagittal reformatted images were created and reviewed. Intravenous contrast dose: 90 mL Visipaque 320 Radiation dose: Total exam DLP = 423.68 mGy-cm. This CT exam was performed using one or more of the following dose reduction techniques: Automated exposure control, adjustment of the mA and/or kV according to patient size, and/or use of iterative reconstruction technique. FINDINGS: PULMONARY ARTERIES: Unremarkable. No pulmonary embolism. AORTA: No acute findings. No thoracic aortic aneurysm. LUNGS: There is subpleural fibrosis in both lower lobes. There is prominence of the interlobular septa in both lower lobes, a nonspecific finding. There is linear scar in the right lower lobe unchanged from prior CT. There is a patchy infiltrate in the anterior segment the right upper lobe as well as scattered small nodular opacities, the largest measuring 5 mm in diameter. Consider infectious etiology. There is mucus seen in the distal trachea and left mainstem bronchus. There is a small amount of dependent fluid in the right mainstem bronchus creating an air-fluid level. PLEURAL SPACES: Calcified pleural plaque noted in anterior left upper lobe and along left reva diaphragmatic pleura. Consistent with asbestos related pleural disease. There is trace left pleural effusion. There is no right pleural effusion. There is no pneumothorax. HEART: Unremarkable. No cardiomegaly. No significant pericardial effusion. LYMPH NODES: No lymphadenopathy. BONES, CHEST WALL: Unremarkable. No fracture or destructive lesion OTHER FINDINGS: Unremarkable. IMPRESSION: No evidence of pulmonary embolism. Patchy infiltrate in the anterior segment right upper lobe along with scattered tiny nodular densities. Possible infectious etiology. Please correlate. Subpleural fibrosis in both lower lobes. Asbestos related pleural disease. Mucous and minimal fluid within the trachea and mainstem bronchi. See above. Trace left pleural effusion.
--- NOTE | 2017-09-03 21:08 | PN ---
DATE: SUBJECTIVE: The patient denies dizziness at this time. PHYSICAL EXAMINATION: VITAL SIGNS: Blood pressure 96/60, heart rate 68, temperature 97.3, respirations 20. HEENT: Head is normocephalic. CHEST: Clear. HEART: S1 and S2, regular. Grade 3/6 ejection systolic murmur over the left sternal border. ABDOMEN: Soft. EXTREMITIES: No edema. DIAGNOSTIC STUDIES: Chest CT angio, no evidence of pulmonary embolus, patchy infiltrate in the anterior segment of right upper lobe with scattered nodular densities. Subpleural fibrosis in both lower lobes. Echocardiographic study revealed mild concentric LVH, ejection fraction in the range of 40% to 50%, severe valvular aortic stenosis, calculated aortic valve area 0.7 cm2. Moderate aortic insufficiency. EKG revealed sinus rhythm at the rate of 78, left axis deviation, right bundle branch block. ASSESSMENT: 1. Status post hypotension. 2. Severe valvular aortic stenosis. 3. Mildly depressed left ventricular systolic function. 4. Abnormal EKG with evidence of right bundle branch block. RECOMMENDATIONS: Continue IV Zithromax. Continue albuterol inhaler. Continue Flexeril 10 mg t.i.d., Lipitor 10 mg once a day. I discussed with the patient possibility of cardiac catheterization; however, he was not very receptive to the idea stating that he never had problems with his heart and wanted to discuss with his first. Wilfrido Dave MD
[2017-09-04] MEDS: Sodium Chloride 0.9% 500 ML IV SCH ×3 (03:00→12:45)
[2017-09-04] MEDS: Pantoprazole 40 mg EC Tab PO SCH (08:38)
[2017-09-04] MEDS: Enoxaparin 40 mg Syringe SC SCH (08:38)
[2017-09-04] MEDS: guaiFENesin 600 mg ER Tab PO SCH (08:39)
[2017-09-04] MEDS: Naproxen 500 MG TAB PO SCH (08:39)
[2017-09-04 08:40] VITALS: BP 100/61; PULSE 73; TEMP 97.1; O2SAT 97
[2017-09-04] MEDS ORDERED: Azithromycin 500 MG in Sodium Chloride 0.9% 250 ML IVPB SCH (09:00)
--- NOTE | 2017-09-04 09:19 | CP.PCM.PN ---
Subjective - Date & Time of Evaluation Date of Evaluation: 09/04/17 Time of Evaluation: 07:30 - Subjective Subjective: Patient seen and examined with attending Dr. Mansfield in MedSurg unit this morning. Patient was seen alert, and awake at the time of evaluation Afebrile, BP still low, but stable Awaiting for possible subacute rehab transfer No event overnight Objective - Vital Signs/Intake and Output Vital Signs (last 24 hours): Temp Pulse Resp BP Pulse Ox 97.1 F L 73 20 100/61 97 09/04/17 08:40 09/04/17 08:40 09/04/17 08:40 09/04/17 08:40 09/04/17 08:40 - Medications Medications: Current Medications Albuterol/Ipratropium (Duoneb 3 Mg/0.5 Mg (3 Ml) Ud) 3 ml INH RQ6 PRN PRN Reason: Shortness of Breath Last Admin: 09/02/17 10:00 Dose: 3 ml Alendronate Sodium (Fosamax) 70 mg PO SAT [facility] Last Admin: 08/29/17 08:58 Dose: 70 mg Atorvastatin Calcium (Lipitor) 10 mg PO DAILY [facility] Last Admin: 09/04/17 08:38 Dose: 10 mg Cholecalciferol (Vitamin D) 1,000 iu PO DAILY [facility] Last Admin: 09/04/17 08:39 Dose: 1,000 iu Cyanocobalamin (Vitamin B12 1000 Mcg/Ml Inj) 1,000 mcg IM Q30D [facility] Cyclobenzaprine HCl (Flexeril) 10 mg PO TID [facility] Last Admin: 09/04/17 08:38 Dose: 10 mg Docusate Sodium (Colace) 100 mg PO DAILY [facility] Last Admin: 09/04/17 08:38 Dose: 100 mg Enoxaparin Sodium (Lovenox) 40 mg SC DAILY [facility] PRN Reason: Protocol Last Admin: 09/04/17 08:38 Dose: 40 mg Guaifenesin (Mucinex La) 600 mg PO Q12 [facility] Last Admin: 09/04/17 08:39 Dose: 600 mg Guaifenesin (Robitussin) 200 mg PO Q6 PRN PRN Reason: Cough Last Admin: 09/03/17 21:16 Dose: 200 mg Sodium Chloride (Sodium Chloride 0.9%) 500 mls @ 50 mls/hr IV .Q10H [facility] Last Admin: 09/04/17 08:57 Dose: 50 mls/hr Azithromycin 500 mg/ Sodium (Chloride) 250 mls @ 250 mls/hr IVPB DAILY [facility] PRN Reason: Protocol Last Admin: 09/04/17 08:52 Dose: 250 mls/hr Ketorolac Tromethamine (Toradol) 15 mg IVP Q6 PRN PRN Reason: Pain, moderate (4-7) Last Admin: 08/31/17 10:18 Dose: 15 mg Lactulose (Enulose) 20 gm PO Q4H PRN PRN Reason: Constipation Lactulose (Enulose) 20 gm PO DAILY [facility] Last Admin: 09/01/17 10:13 Dose: Not Given Naproxen (Naproxen) 500 mg PO Q12@0900,2100 [facility] Last Admin: 09/04/17 08:39 Dose: 500 mg Pantoprazole Sodium (Protonix Ec Tab) 40 mg PO DAILY [facility] Last Admin: 09/04/17 08:38 Dose: 40 mg Timolol Maleate (Timoptic 0.5% Oph Soln) 1 drop OU DAILY [facility] Last Admin: 09/04/17 08:42 Dose: 1 drop - Labs Labs: 09/02/17 07:05 09/02/17 07:05 PT 12.2 Seconds (9.8-13.1) 09/02/17 05:45 INR 1.1 (0.9-1.2) 09/02/17 05:45 APTT 35.4 Seconds (25.6-37.1) 09/02/17 05:45 - Constitutional Appears: No Acute Distress - Additional Findings Additional findings: - Constitutional Appears: Non-toxic, No Acute Distress - ENT Exam ENT Exam: Mucous Membranes Moist - Respiratory Exam Respiratory Exam: Clear to Ausculation Bilateral, NORMAL BREATHING PATTERN. absent: Rales, Rhonchi, Wheezes, Stridor - Cardiovascular Exam Cardiovascular Exam: REGULAR RHYTHM, +S1, +S2 - GI/Abdominal Exam GI & Abdominal Exam: Soft, Normal Bowel Sounds. absent: Guarding, Rigid, Tenderness - Extremities Exam Extremities Exam: Normal Inspection. absent: Calf Tenderness, Pedal Edema - Neurological Exam Neurological Exam: Alert, Awake, Oriented x3 Assessment and Plan (1) Constipation Assessment & Plan: Drug related constipation had 3 watery stools yesterday as per nurse report c/w current management Status: Acute (2) Hypotension Assessment & Plan: unclear etiology still present, but stable BP improving w/ IV fluids c/w empiric azithromycin Held valsartan, we can DC Chest CT done yesterday showed no evidence of PE Blood culture on 08/31/17 has shown no growth for 3 days Urine culture on 08/31/17 showed possible contamination Cardiology consulted. Recommendations appreciated. Status: Acute (3) DVT prophylaxis Assessment & Plan: lovenox Status: Acute (4) Physical deconditioning Assessment & Plan: PT recommended transfer to subacute rehab Status: Acute
--- NOTE | 2017-09-04 14:59 | PN ---
DATE: SUBJECTIVE: The patient denies any chest pain or dizziness. PHYSICAL EXAMINATION: VITAL SIGNS: Blood pressure 100/61, heart rate 73, temperature 97.1, respirations 20. HEENT: Head is normocephalic. CHEST: Scattered rhonchi. HEART: S1 and S2, regular. Grade 3/6 ejection systolic murmur over the left sternal border. ABDOMEN: Soft. EXTREMITIES: No edema. ASSESSMENT: 1. Severe aortic stenosis. 2. Improved hypotension. 3. Mildly depressed left ventricular systolic function. 4. Abnormal EKG with evidence of right bundle-branch block. RECOMMENDATIONS: Continue current albuterol inhaler. Continue Lipitor 10 mg once a day and Protonix 40 mg p.o. once a day. Start aspirin 81 mg once a day. The patient cardiac catheterization with his at the bedside. He requested to postpone that until after [place] time. The case was discussed with [employer] who will discharge the patient on aspirin, Lipitor, and beta-sp therapy. Wilfrido Dave MD
== END 2017-09-04 13:40 | DRG 392 ==
LOC: H.ER 18:54 → UNDOADMOB 21:25 → H.ERHOLD 21:25 → OBSVTOIN 21:25 → INTOOBSV 21:25 → H.ERHOLD 23:25 → H.MEDSURG1 23:25 → H.ERHOLD 08-29 15:58 → H.MEDSURG1 08-29 15:58 → OBSVTOIN 08-29 15:58 → H.MEDSURG1 08-30 09:50
PROVIDERS: ADMIT Internal Medicine; ATTEND Internal Medicine
DX: K59.03 Drug induced constipation (principal); I45.10 Unspecified right bundle-branch block; I35.0 Nonrheumatic aortic (valve) stenosis; D72.829 Elevated white blood cell count, unspecified; E78.00 Pure hypercholesterolemia, unspecified; T46.5X5A Adverse effect of other antihypertensive drugs, initial encounter; T50.905A Adverse effect of unspecified drugs, medicaments and biological substances, initial encounter; I95.2 Hypotension due to drugs; G89.29 Other chronic pain; I10 Essential (primary) hypertension; E78.5 Hyperlipidemia, unspecified; N39.490 Overflow incontinence; M54.16 Radiculopathy, lumbar region

== ENCOUNTER 2017-11-15 16:53 | Emergency (ER) | payer BC, MEDICARE ==
[2017-11-15 16:54] VITALS: BMI 25.8
[2017-11-15 17:09] VITALS: BP 124/65; PULSE 71; RESP 16; TEMP 97.5; O2SAT 97
--- NOTE | 2017-11-15 17:50 | ED PDOC ---
HPI: Abdomen Time Seen by Provider: 11/15/17 17:22 Chief Complaint (Nursing): Abdominal Pain Chief Complaint (Provider): bulge RIGHT groin History Per: Patient History/Exam Limitations: no limitations Onset/Duration Of Symptoms: Days (3) Associated Symptoms: denies: Fever, Chills, Nausea, Vomiting, Diarrhea, Loss Of Appetite, Back Pain, Chest Pain, Constipation, Urinary Symptoms Exacerbating Factors: None Alleviating Factors: None Additional Complaint(s): noticed swelling to RIGHT groin. Denies pain. Not sure if it was there before. Good sj, normal BM, normal void. PMD Parker Mandujano Past Medical History Reviewed: Historical Data, Nursing Documentation, Vital Signs Vital Signs: Last Vital Signs Temp 97.5 F L 11/15/17 17:08 Pulse 71 11/15/17 17:08 Resp 16 11/15/17 17:08 BP 124/65 11/15/17 17:08 Pulse Ox 97 11/15/17 17:08 - Medical History PMH: Back Problems (Herniated lumbar disc), HTN, Hypercholesterolemia, Hyperlipidemia Denies: Asthma, HIV, Hyperthyroidism, Hypothyroidism, Kidney Stones, Chronic Kidney Disease - Family History Family History: States: Unknown Family Hx - Social History Current smoker - smoking cessation education provided: No - Home Medications Home Medications: Ambulatory Orders Medication Instructions Recorded Alendronate [Fosamax] 70 mg PO SAT 11/30/15 Atorvastatin [Lipitor] 10 mg PO DAILY 11/30/15 Cholecalciferol [Vitamin D 1000 IU] 1,000 unit PO DAILY 11/30/15 Cyanocobalamin [Vitamin B12 1000 1,000 mcg IM Q30D 11/30/15 mcg/ml Inj] Pantoprazole Sodium [Protonix] 40 mg PO DAILY 11/30/15 Timolol 0.5% Ophth [Timoptic 0.5% 1 drop EACHEYE DAILY 11/30/15 Ophth Soln] Lactulose [Enulose] 20 gm PO Q4H PRN 06/02/17 Guaifenesin [Mucinex] 600 mg PO Q12 #30 tab.er.12h 08/24/17 Azithromycin [Zithromax] 500 mg PO DAILY #4 tablet 09/04/17 - Allergies Allergies/Adverse Reactions: Allergies Allergy/AdvReac Type Severity Reaction Status Date / Time No Known Allergies Allergy Verified 08/24/17 16:10 Review of Systems ROS Statement: Except As Marked, All Systems Reviewed And Found Negative (and as per HPI) Physical Exam - Reviewed Nursing Documentation Reviewed: Yes Vital Signs Reviewed: Yes - Physical Exam Appears: Positive for: Non-toxic, No Acute Distress Head Exam: Positive for: ATRAUMATIC, NORMOCEPHALIC Skin: Positive for: Warm, Dry Gastrointestinal/Abdominal: Positive for: Bowel Sounds, Soft. Negative for: Tenderness, Mass, Distended, Guarding, Rebound Male Genital Exam: Positive for: hernia mass (RIGHT inguinal area (direct) soft nontender and reducible). Negative for: inguinal tenderness Extremity: Positive for: Normal ROM. Negative for: Deformity Neurologic/Psych: Positive for: Alert. Negative for: Motor/Sensory Deficits - ECG O2 Sat by Pulse Oximetry: 97 Disposition - Clinical Impression Clinical Impression: Inguinal hernia Counseled Patient/Family Regarding: Diagnosis, Need For Followup - Disposition Referrals: Parker Mandujano DO [[facility]] - 11/16/17 Disposition: Routine/Home Disposition Time: 17:48 Condition: GOOD Instructions: Inguinal and Femoral (Groin) Hernias
== END 2017-11-15 18:15 | disposition home or self-care (01) ==
LOC: H.ER 16:53
DX: K40.90 Unilateral inguinal hernia, without obstruction or gangrene, not specified as recurrent (principal); I10 Essential (primary) hypertension; E78.00 Pure hypercholesterolemia, unspecified

== ENCOUNTER 2017-11-17 13:48 | Emergency (ER) | payer MEDICARE ==
[2017-11-17 13:49] VITALS: BMI 25.8
[2017-11-17 14:17] VITALS: RESP 18; TEMP 98.2
[2017-11-17] MEDS ORDERED: Sodium Chloride 0.9% 1,000 ML IV STA (15:36)
--- NOTE | 2017-11-17 15:37 | ED PDOC ---
HPI: General Adult History Per: Patient History/Exam Limitations: no limitations Onset/Duration Of Symptoms: Days (21 days) Current Symptoms Are (Timing): Still Present <Patricia Fermin - Last Filed: 11/17/17 15:55> <Abrahna Hercules - Last Filed: 11/17/17 17:20> Time Seen by Provider: 11/17/17 15:03 Chief Complaint (Nursing): GI Problem Additional Complaint(s): 86 yo , m, PMhx/o Lumbar disc herniation, HTN, HLD, hard hearing, presents to ED c/o fecal incontinence noted 3 weeks ago. Patient reports that he has BM in the morning and later by the time he gets to the toilet again , he has stool underwear. He reports that it happens about 3 times/day and he feels the desire to go to defecate. He reports normal BM every other day. He denies fever, nausea, vomiting, diarrhea, abdominal pain, recent back pain, weakness, numbness , paresthesia, difficulty walking, urinary incontinence, recent fall or trauma. Denies taking any laxative at this moment or a new change in his diet. PMD: Nazia Canales (Patricia Fermin) Supervising Attending Note <Patricia Fermin - Last Filed: 11/17/17 15:55> - Supervising Attending Note The Documented history was done by the: Physician Truck Packer The documented physical exam was done by the: Physician Truck Packer The documented procedures were done by the: Physician Truck Packer - Attestation: I have personally seen and examined this patient.: Yes I have fully participated in the care of the patient.: Yes I have reviewed all pertinent clinical information, including history, physical exam and plan: Yes <Abrahan Hercules - Last Filed: 11/17/17 17:20> - Notes: Notes:: stool in underwear as he can't hold till he gets to the bathroom. Ongoing for 3 weeks. No back pain. Chronically walks with cane. No pain in abd or legs. No numbness, tingles, or new injury. (Abrahan Hercules) Past Medical History - Medical History PMH: Back Problems (Herniated lumbar disc), HTN, Hypercholesterolemia, Hyperlipidemia Denies: Asthma, HIV, Hyperthyroidism, Hypothyroidism, Kidney Stones, Chronic Kidney Disease - Family History Family History: States: Unknown Family Hx <VijaykelechiPatricia - Last Filed: 11/17/17 15:55> <Veto Herculesya Jonathan - Last Filed: 11/17/17 17:20> Vital Signs: Last Vital Signs Temp 98.2 F 11/17/17 14:16 Pulse 67 11/17/17 14:16 Resp 18 11/17/17 14:16 BP 102/57 L 11/17/17 14:16 Pulse Ox 99 11/17/17 16:10 - Home Medications Home Medications: Ambulatory Orders Medication Instructions Recorded Alendronate [Fosamax] 70 mg PO SAT 11/30/15 Atorvastatin [Lipitor] 10 mg PO DAILY 11/30/15 Cholecalciferol [Vitamin D 1000 IU] 1,000 unit PO DAILY 11/30/15 Cyanocobalamin [Vitamin B12 1000 1,000 mcg IM Q30D 11/30/15 mcg/ml Inj] Pantoprazole Sodium [Protonix] 40 mg PO DAILY 11/30/15 Timolol 0.5% Ophth [Timoptic 0.5% 1 drop EACHEYE DAILY 11/30/15 Ophth Soln] Lactulose [Enulose] 20 gm PO Q4H PRN 06/02/17 Guaifenesin [Mucinex] 600 mg PO Q12 #30 tab.er.12h 08/24/17 Azithromycin [Zithromax] 500 mg PO DAILY #4 tablet 09/04/17 - Allergies Allergies/Adverse Reactions: Allergies Allergy/AdvReac Type Severity Reaction Status Date / Time No Known Allergies Allergy Verified 11/17/17 14:15 Review of Systems Cardiovascular: Negative for: Chest Pain, Palpitations Respiratory: Negative for: Cough Gastrointestinal: Positive for: Other (fecal incontinence ). Negative for: Nausea, Vomiting Genitourinary Male: Negative for: Dysuria Neurological: Negative for: Weakness, Numbness <Patricia Fermin - Last Filed: 11/17/17 15:55> Physical Exam - Physical Exam Appears: Positive for: Well, No Acute Distress Head Exam: Positive for: ATRAUMATIC, NORMOCEPHALIC Skin: Positive for: Normal Color Eye Exam: Positive for: Normal appearance Neck: Positive for: Normal. Negative for: Limited ROM Cardiovascular/Chest: Positive for: Regular Rate, Rhythm, Chest Non Tender. Negative for: Murmur Respiratory: Positive for: Normal Breath Sounds. Negative for: Crackles, Rales , Rhonchi Gastrointestinal/Abdominal: Positive for: Bowel Sounds, Soft, Other. Negative for: Tenderness, Distended, Guarding Back: Positive for: Normal Inspection Rectal: Positive for: Rectal Tone Is: (diminished), Other. Negative for: Black Stool, Hemorrhoids, Mass, Tenderness DTR - Knee (R): 2+ DTR - Knee (L): 2+ Neurologic/Psych: Positive for: Alert, Oriented <Patricia Fermin - Last Filed: 11/17/17 15:55> - Physical Exam Back: Positive for: Normal Inspection. Negative for: L CVA Tenderness, R CVA Tenderness <Abrahan Hercules - Last Filed: 11/17/17 17:20> - ECG O2 Sat by Pulse Oximetry: 99 <Patricia Fermin - Last Filed: 11/17/17 15:55> - Laboratory Results Result Diagrams: 11/17/17 16:14 11/17/17 16:14 <Abrahan Hercules - Last Filed: 11/17/17 17:20> - Progress ED Course And Treament: 1718: Dr. Hart to fu on labs and imaging. (Abrahan Hercules) Medical Decision Making <Patricia Fermin - Last Filed: 11/17/17 15:55> <Abrahan Hercules - Last Filed: 11/17/17 17:20> Medical Decision Makin:45 Fecal incontinence Differential lumbar spine compression by tumor, lumbar spine cauda equina, transverse myelitis Plan CBC, CMP IV fluids Bentyl MRI Lumbar spine. (Patricia Fermin) Disposition <Patricia Fermin - Last Filed: 11/17/17 15:55> - Patient ED Disposition Is Patient to be Admitted: Transfer of Care - Disposition Disposition Time: 17:18 <Abrahan Hercules - Last Filed: 11/17/17 17:20> - Clinical Impression Clinical Impression: Incontinence, feces - Disposition Condition: FAIR Forms: [employer] (French)
[2017-11-17 16:24] LABS: BASO # 0.1 K/uL (0.0-0.2); BASO % 1.1 % (0.0-2.0); EOS # 0.1 K/uL (0.0-0.7); EOS % 1.8 % (0.0-4.0); HEMOGLOBIN 14.2 g/dL (12.0-18.0); LYMPH # 2.5 K/uL (1.0-4.3); LYMPH % 29.8 % (20.0-40.0); MEAN CELL VOLUME 100.8 fl (80.0-94.0); MEAN CORPUSCULAR HEMOGLOBIN 33.3 pg (27.0-31.0); MEAN PLATELET VOLUME 8.7 fl (7.2-11.7); MONO # 0.9 K/uL (0.0-0.8); MONO % 10.4 % (0.0-10.0); NEUT # 4.8 K/uL (1.8-7.0); NEUT % 56.9 % (50.0-75.0); NRBC % 0.1 % (0.0-0.0); RBC 4.27 Mil/uL (4.40-5.90); RED CELL DISTRIBUTION WIDTH 14.5 % (11.5-14.5); WHITE BLOOD COUNT 8.4 K/uL (4.8-10.8)
[2017-11-17 16:32] LABS: ALB/GLOB RATIO 1.2 (1.0-2.1); ALBUMIN 3.8 g/dL (3.5-5.0); ALT/SGPT 30 U/L (21-72); AST/SGOT 26 U/L (17-59); BLOOD UREA NITROGEN 22 mg/dl (9-20); CALCIUM 9.2 mg/dL (8.4-10.2); GFR AFRICAN-AMERICAN > 60; GFR NON-AFRICAN AMERICAN > 60
--- NOTE | 2017-11-17 17:26 | ED PDOC ---
- Laboratory Results Result Diagrams: 11/17/17 16:14 11/17/17 16:14 - ECG O2 Sat by Pulse Oximetry: 99 Medical Decision Making Medical Decision Makin:30 -Patient was endorsed to me by Dr. Hercules, pending reevaluation after MRI. 19:00 --Patient will be signed out to Dr. Nails, pending MRI results. Disposition - Clinical Impression Clinical Impression: Incontinence, feces, Spinal stenosis - POA Present On Arrival: None - Disposition Referrals: Parker Mandujano DO [[facility]] - Disposition: Transfer of Care Disposition Time: 07:00 Condition: FAIR Instructions: Spinal Stenosis, Fecal Incontinence Forms: [facility] (Greek) Patient Signed Over To: Chau Nails
--- NOTE | 2017-11-17 19:31 | ED PDOC ---
"- Laboratory Results Result Diagrams: 11/17/17 16:14 11/17/17 16:14 - ECG O2 Sat by Pulse Oximetry: 99 Medical Decision Making Medical Decision Makin:00 --Patient was endorsed to me by Dr. Hart, pending MRI results. 1944 COMPARISON: MR - SPINAL CANAL LUMBAR W/O CONT 2015-08-24 12:56 FINDINGS: Vertebrae: Grossly stable severe chronic compression fracture at L1 No acute fracture. Heterogeneous marrow signal redemonstrated Spinal cord: Unremarkable. Normal signal. Soft tissues: Unremarkable. DISCS/SPINAL CANAL/NEURAL FORAMINA: L1-L2: Right left foraminal stenosis. No significant central canal stenosis. No disc herniation L2-L3: Mild central canal stenosis . Moderate right and mild left foraminal stenosis. No disc herniation L3-L4: Mild central canal stenosis and severe bilateral foraminal stenosis. No disc herniation L4-L5: Mild central canal stenosis. Severe left and [id number] right foraminal stenosis. No disc herniation L5-S1: Mild left foraminal stenosis. No significant right foraminal or central canal stenosis. No disc herniation IMPRESSION: Degenerative changes most pronounced at L3-L4 and L4-L5 with severe foraminal stenosis as described. No definite disc herniation Grossly stable chronic L1 compression fracture. No definite acute fracture JOHN VOSS | Preliminary Radiology Report TICKET PRINTER (QA) DISCREPANCY? If there is a discrepancy between the preliminary and final interpretation, please notify [facility] via [email or web address]. If you do not have access to our QA portal, call our QA team at [phone] CONFIDENTIALITY STATEMENT This report is intended only for the use of the referring physician, and only in accordance with law, If you received this in error, call [phone] Page 2 of 2 Thank you for allowing us to participate in the care of your patient. Dictated and Authenticated by: Stevo Bonner MD 11/17/2017 6:06 PM Eastern Time ([place] & [place]) Patient informed of results, states that he was told that 8 years ago he was told he had herniate discs. I informed the patient that he likely has had spinal stenosis for years. Advised patient to followup with Dr. Mandujano tomorrow, patient relates that he will try and go into the office on or Thursday and that Dr. Mandujano sometimes does home visits on Thursday. Gave patient a copy of the results. Return precautions were discussed. Disposition - Clinical Impression Clinical Impression: Incontinence, feces, Spinal stenosis - POA Present On Arrival: None - Disposition Referrals: Parker Mandujano DO [[facility]] - Disposition: Routine/Home Disposition Time: 19:46 Condition: FAIR Instructions: Spinal Stenosis, Fecal Incontinence Forms: [facility] ([place])"
[2017-11-17 19:48] VITALS: BP 110/70
[2017-11-17 20:17] VITALS: PULSE 78
--- NOTE | 2017-11-18 13:14 | MRI ---
PROCEDURE: MR LUMBAR SPINE WITHOUT CONTRAST HISTORY: r/o incontinence cause with hx of back issues COMPARISON: Lumbar spine MRI 08/24/2015 and lumbar spine radiographs 08/30/2017. Lumbar spine CT 05/30/2017 also reviewed. TECHNIQUE: Multiecho multiplanar sequences were performed through the lumbar spine without the use of intravenous contrast. FINDINGS: There is mild straightening of lumbar curvature without acute fracture or spondylolisthesis identified at this time. Advanced degenerative disc disease seen throughout the lumbar spine with the L5-S1 intervertebral disc least affected appearing only desiccated. Interval worsening of endplate degenerative changes is identified at L2-3 and L3-4. No suspicious marrow signal changes are identified although a severe but chronic anterior wedge compression fracture identified L1 with heterogeneous signal changes identified in the posterior portion of the 2 body. A stable limited chronic compression fracture is minimally anteriorly wedged at T12 as well. [id number] hydration remains at the T12-L1 intervertebral disc with surrounding endplates unremarkable. A mild upper lumbar levoscoliotic deformity is stable. A large benign hemangioma is again seen occupying the L5 vertebral body with prevertebral and paraspinal soft tissues unremarkable. Conus medullaris terminates at T12 and remains normal in intrinsic signal. T12-L1: No disc herniation, spinal canal stenosis or neural foraminal narrowing. Mild facet joint degenerative changes are reiterated. Limited chronic deflection of the posterior margins of the upper endplate L1 is identified without stenosis resulting L1-2: No disc herniation. Limited deflection of the lower endplate of L1 is identified without resulting in significant stenosis. No disc herniation. Facet arthropathy is moderate and bilateral with moderate bilateral neural foraminal stenoses identified on degenerative basis. L2-3: A generalized disc osteophyte complex is appreciated combining with moderate to severe facet arthropathy resulting in mild central canal stenosis concentrated at the lateral recesses once again as compared prior CT 8 05/30/2017. No interval disc herniation. Severe right and mild to moderate left neural foraminal stenosis appreciated primarily on degenerative basis but in part due to scoliosis as well. No significant interval change. L3-4: No definite disc herniation identified. A generalized disc osteophyte complex is identified resulting in moderate central canal stenosis, severe left and moderate to severe right neural foraminal stenosis. Gross facet arthropathy is identified. L4-5: No disc herniation. A minimal disc bulge is identified with moderate to severe facet joint arthropathy. Left lateral recess is moderately stenosed which is felt to be a function of scoliosis with the right lateral recess only encroaches minimally. Moderate left and mild right degenerative neural foraminal stenoses are identified. L5-S1: No disc herniation identified. Moderate facet arthropathy is appreciated with mild left and no right neural foraminal stenosis. OTHER FINDINGS: None. IMPRESSION: No definite interval acute findings including disc herniation or prominent interval increase in degenerative multilevel central canal and neural foraminal stenoses as compare primarily her prior lumbar spine CT 05/30/2017. Interval progression of degenerative disc disease is appreciated and stenoses as compared to prior MRI 08/09/2015. Chronic L1 vertebral body compression fracture remains stable as well as a limited chronic vertebral body fracture T12. No impingement of the conus medullaris is identified overall though the L1 endplates are minimally projected posteriorly once again.
[2017-11-19 20:49] VITALS: O2SAT 99
== END 2017-11-17 20:16 | disposition home or self-care (01) ==
LOC: H.ER 13:48
DX: R15.9 Full incontinence of feces (principal); M48.061 Spinal stenosis, lumbar region without neurogenic claudication; E78.00 Pure hypercholesterolemia, unspecified; I10 Essential (primary) hypertension
CPT/HCPCS: 72148; 80053; 85025; 96360; 99283; G0328; J7040

== ENCOUNTER 2017-11-24 10:37 | Emergency (ER) | payer MEDICARE ==
[2017-11-24 10:37] VITALS: BMI 25.8
[2017-11-24 10:49] VITALS: BP 114/72; PULSE 64; RESP 19; TEMP 98.5; O2SAT 100
[2017-11-24] MEDS ORDERED: Sodium Chloride 0.9% 1,000 ML IV STA (11:42)
--- NOTE | 2017-11-24 12:35 | ED PDOC ---
HPI: General Adult Time Seen by Provider: 11/24/17 11:25 Chief Complaint (Nursing): Abdominal Pain Chief Complaint (Provider): fecal incontinence History Per: Patient History/Exam Limitations: no limitations Current Symptoms Are (Timing): Still Present Additional Complaint(s): 86 yo , m, PMhx/o Lumbar disc herniation, HTN, HLD, hard hearing, presents to ED c/o fecal incontinence noted 4 weeks ago. Patient reports that he has 4-5 solid BM at once in the morning and 30 min later he has to go again to toilet. Patient unable to states how many BM totally during the day due to dementia. Reports he is able to feel desire to defecate but it happens w/o time to get to the toilet. He denies abd pain, n,v,diarrhea, cough, SOB, Chest pain. Patient was discharged from ED last week with similar symptoms, but he was not able to set appt with PMD Dr Nazia Canales because he forgot it. Patient in ED with his who also is hard hearing and reports a family member Leigha Rios sister in law who we cant talk but they have not phone number. I called patient's Dr office and was not able to talked with Dr, but i was told that patient will have a nurse visit tomorrow to help with his medical problem PMD: Nazia Canales Past Medical History Vital Signs: Last Vital Signs Temp 98.5 F 11/24/17 10:48 Pulse 64 11/24/17 10:48 Resp 19 11/24/17 10:48 BP 114/72 11/24/17 10:48 Pulse Ox 100 11/24/17 12:39 - Medical History PMH: Back Problems (Herniated lumbar disc), HTN, Hypercholesterolemia, Hyperlipidemia Denies: Asthma, HIV, Hyperthyroidism, Hypothyroidism, Kidney Stones, Chronic Kidney Disease - Family History Family History: States: Unknown Family Hx - Home Medications Home Medications: Ambulatory Orders Medication Instructions Recorded Alendronate [Fosamax] 70 mg PO SAT 11/30/15 Atorvastatin [Lipitor] 10 mg PO DAILY 11/30/15 Cholecalciferol [Vitamin D 1000 IU] 1,000 unit PO DAILY 11/30/15 Cyanocobalamin [Vitamin B12 1000 1,000 mcg IM Q30D 11/30/15 mcg/ml Inj] Pantoprazole Sodium [Protonix] 40 mg PO DAILY 11/30/15 Timolol 0.5% Ophth [Timoptic 0.5% 1 drop EACHEYE DAILY 11/30/15 Ophth Soln] Lactulose [Enulose] 20 gm PO Q4H PRN 06/02/17 Guaifenesin [Mucinex] 600 mg PO Q12 #30 tab.er.12h 08/24/17 Azithromycin [Zithromax] 500 mg PO DAILY #4 tablet 09/04/17 - Allergies Allergies/Adverse Reactions: Allergies Allergy/AdvReac Type Severity Reaction Status Date / Time No Known Allergies Allergy Verified 11/17/17 14:15 Review of Systems Gastrointestinal: Positive for: Other (fecal incontinence) Physical Exam - Physical Exam Appears: Positive for: Well, No Acute Distress Head Exam: Positive for: ATRAUMATIC, NORMOCEPHALIC Skin: Positive for: Normal Color Neck: Positive for: Normal Cardiovascular/Chest: Positive for: Regular Rate, Rhythm. Negative for: Murmur Respiratory: Positive for: Normal Breath Sounds. Negative for: Crackles, Rales , Wheezing Gastrointestinal/Abdominal: Positive for: Soft. Negative for: Tenderness, Rebound Back: Positive for: Normal Inspection. Negative for: L CVA Tenderness, R CVA Tenderness Rectal: Positive for: Other (perirectal area noticed with some brown color stool ) Extremity: Positive for: Normal ROM. Negative for: Tenderness, Pedal Edema Neurologic/Psych: Positive for: Alert, Oriented - Laboratory Results Result Diagrams: 11/24/17 12:58 11/24/17 12:58 - ECG O2 Sat by Pulse Oximetry: 100 Medical Decision Making Medical Decision Makin:20 PM Initial impression Fecal Incontinence Differential Rectal tumor, lumbar spine compression by tumor, lumbar spine cauda equina, transverse myelitis Plan CBC, CMP IV fluids 13:35 Labs reviewed. Iv fluids given Talked to patients' Dr office. patient had inactive medical insurance, however will have a nurse practitioner visit tomorrow for evaluation. Patient and his verbalized understanding and are agree with the plan. Patient cleared to be discharge. Disposition - Clinical Impression Clinical Impression: Diarrhea - Disposition Disposition Time: 14:00 Condition: FAIR Additional Instructions: follow up with the visiting nurse tomorrow return to ED with any worsening or concerning symptoms Instructions: Fecal Incontinence Forms: [email or web address] (Croatian)
[2017-11-24 13:06] LABS: BASO # 0.1 K/uL (0.0-0.2); BASO % 1.4 % (0.0-2.0); EOS # 0.2 K/uL (0.0-0.7); EOS % 2.3 % (0.0-4.0); LYMPH # 1.9 K/uL (1.0-4.3); LYMPH % 25.3 % (20.0-40.0); MEAN CELL VOLUME 101.1 fl (80.0-94.0); MEAN CORPUSCULAR HGB CONC 33.6 g/dL (33.0-37.0); MONO # 0.8 K/uL (0.0-0.8); MONO % 10.9 % (0.0-10.0); NEUT # 4.5 K/uL (1.8-7.0); NEUT % 60.1 % (50.0-75.0); NRBC % 0.1 % (0.0-0.0); RBC 4.11 Mil/uL (4.40-5.90); RED CELL DISTRIBUTION WIDTH 14.5 % (11.5-14.5); WHITE BLOOD COUNT 7.5 K/uL (4.8-10.8)
[2017-11-24 13:15] LABS: ALBUMIN 3.6 g/dL (3.5-5.0); BLOOD UREA NITROGEN 22 mg/dl (9-20); CALCIUM 8.9 mg/dL (8.4-10.2); GFR AFRICAN-AMERICAN > 60; GFR NON-AFRICAN AMERICAN > 60
[2017-11-24 13:16] LABS: ALB/GLOB RATIO 1.1 (1.0-2.1); ALT/SGPT 34 U/L (21-72); AST/SGOT 26 U/L (17-59)
== END 2017-11-24 14:37 | disposition home or self-care (01) ==
LOC: H.ER 10:37
DX: R19.7 Diarrhea, unspecified (principal); F03.90 Unspecified dementia, unspecified severity, without behavioral disturbance, psychotic disturbance, mood disturbance, and anxiety; I10 Essential (primary) hypertension; E78.00 Pure hypercholesterolemia, unspecified
CPT/HCPCS: 80053; 85025; 99282; J7040

== ENCOUNTER 2018-01-13 18:47 | Inpatient (IN) | payer MEDICARE ==
[2018-01-13 18:48] VITALS: BMI 25.8
--- NOTE | 2018-01-13 19:33 | ED PDOC ---
- ECG O2 Sat by Pulse Oximetry: 100 (RA) Pulse Ox Interpretation: Normal Medical Decision Making Medical Decision Makin:[address] Sellers pending CT and re-evaluation. Scribe Attestation: Documented by Ramiro Torres acting as a scribe for Elijah Sellers MD. Scribe Attestation: All medical record entries made by the Scribe were at my direction and personally dictated by me. I have reviewed the chart and agree that the record accurately reflects my personal performance of the history, physical exam, medical decision making, and the department course for this patient. I have also personally directed, reviewed, and agree with the discharge instructions and disposition. Disposition - Disposition Forms: [employer] (Estonian) History of Present Illnes - History of Present Illness Reason for Visit: Chest Pain due to injury Review of Symptoms - . Except As Marked, All Systems Reviewed And Found Negative Constitutional: Negative for: other (denies any other injuries) Positive for: Chest Pain (left side due to injury) Respiratory: Positive for: Other (pain with breathing)
[2018-01-13] MEDS ORDERED: Albuterol-Ipratrop 3 mg / 0.5 (3 ml) UD INH STA (20:02)
[2018-01-13] MEDS ORDERED: Albuterol-Ipratrop 3 mg / 0.5 (3 ml) UD ONE (20:02)
[2018-01-13 20:38] LABS: BASO # 0.1 K/uL (0.0-0.2); BASO % 1.1 % (0.0-2.0); EOS # 0.2 K/uL (0.0-0.7); EOS % 2.3 % (0.0-4.0); HEMOGLOBIN 15.4 g/dL (12.0-18.0); LYMPH # 1.5 K/uL (1.0-4.3); LYMPH % 18.7 % (20.0-40.0); MEAN CORPUSCULAR HEMOGLOBIN 32.7 pg (27.0-31.0); MEAN CORPUSCULAR HGB CONC 33.3 g/dL (33.0-37.0); MEAN PLATELET VOLUME 10.4 fl (7.2-11.7); MONO # 0.8 K/uL (0.0-0.8); MONO % 9.7 % (0.0-10.0); NEUT # 5.5 K/uL (1.8-7.0); NEUT % 68.2 % (50.0-75.0); NRBC % 0.2 % (0.0-0.0); RBC 4.71 Mil/uL (4.40-5.90); RED CELL DISTRIBUTION WIDTH 14.7 % (11.5-14.5); WHITE BLOOD COUNT 8.1 K/uL (4.8-10.8)
--- NOTE | 2018-01-13 20:44 | ED PDOC ---
HPI: Chest Pain Time Seen by Provider: 01/13/18 19:16 Chief Complaint (Nursing): Rib Injury Chief Complaint (Provider): Rib Injury History Per: Patient History/Exam Limitations: no limitations Onset/Duration Of Symptoms: Hrs (2) Current Symptoms Are (Timing): Still Present Quality: "Pain" Associated Symptoms: Dyspnea Additional Complaint(s): 87 y/o caucasion male presents to the ED with chest pain. Patient has gait instability so he uses a cane for balance. He was walking and lost his balance causing him to fall into a stereo injuring the left side of his chest. Patient complains of pain with breathing but denies any other recent injury or head injury. PMD: Dr. Parker Mandujano Past Medical History Reviewed: Historical Data, Nursing Documentation, Vital Signs Vital Signs: Last Vital Signs Temp 97.4 F L 01/13/18 23:48 Pulse 92 H 01/13/18 23:48 Resp 20 01/13/18 23:48 BP 107/67 01/13/18 23:48 Pulse Ox 97 01/13/18 23:48 - Medical History PMH: Back Problems (Herniated lumbar disc), HTN, Hypercholesterolemia, Hyperlipidemia Denies: Asthma, HIV, Hyperthyroidism, Hypothyroidism, Kidney Stones, Chronic Kidney Disease - Surgical History Surgical History: No Surg Hx - Family History Family History: States: Unknown Family Hx - Social History Current smoker - smoking cessation education provided: No Ex-Smoker (has not smoked in the last 12 months): No Alcohol: None Drugs: Denies - Home Medications Home Medications: Ambulatory Orders Medication Instructions Recorded Atorvastatin [Lipitor] 10 mg PO DAILY 01/13/18 Valsartan [Diovan] 80 mg PO DAILY 01/13/18 - Allergies Allergies/Adverse Reactions: Allergies Allergy/AdvReac Type Severity Reaction Status Date / Time No Known Allergies Allergy Verified 01/13/18 18:54 Review of Systems ROS Statement: Except As Marked, All Systems Reviewed And Found Negative Cardiovascular: Positive for: Chest Pain (left side due to injury) Respiratory: Positive for: Other (pain with breathing) Physical Exam - Reviewed Nursing Documentation Reviewed: Yes Vital Signs Reviewed: Yes - Physical Exam Appears: Positive for: Uncomfortable Head Exam: Positive for: ATRAUMATIC, NORMAL INSPECTION, NORMOCEPHALIC Skin: Positive for: Normal Color, Warm, Dry Eye Exam: Positive for: EOMI, Normal appearance, PERRL ENT: Positive for: Normal ENT Inspection, Other Neck: Positive for: Normal, Painless ROM, Supple Cardiovascular/Chest: Positive for: Regular Rate, Rhythm. Negative for: Chest Non Tender (tenderness to the anterior chest wall), Murmur, Other (no ecchymosis to the chest) Respiratory: Negative for: Normal Breath Sounds (diminished air entry at the left base, 10, 11, and 12 in the midclavicular line) Gastrointestinal/Abdominal: Positive for: Normal Exam, Soft Back: Positive for: Normal Inspection. Negative for: L CVA Tenderness, R CVA Tenderness, Vertebral Tenderness Extremity: Positive for: Normal ROM. Negative for: Pedal Edema, Deformity Neurologic/Psych: Positive for: Alert, Oriented (x3). Negative for: Motor/ Sensory Deficits - Laboratory Results Result Diagrams: 01/13/18 20:15 01/13/18 20:15 - ECG O2 Sat by Pulse Oximetry: 97 (RA) Pulse Ox Interpretation: Normal Medical Decision Making Medical Decision Making: Time: 18:54 Initial Impression: 87 y/o male with chest pain Initial Plan: * Chest X-Ray w/o contrast * EKG * CMP * UDip * Clotting Time Test * Duoneb 3 ml INH * Morphine 4 mg IVP x2 * Urnalysis * Labs reviewed show no clinically significant abnlties CT chest shows multiple rib fractures w/o evidence of ptx or contusion Pt c/o persistent chest wall pain; will admit for further pain management as d/ w Dr Macias (Medicine MD pre owned sales consultant) DX Multiple rib fractures Fair Scribe Attestation: Documented by Ramiro Torres acting as a scribe for Elijah Sellers MD. Scribe Attestation: All medical record entries made by the Scribe were at my direction and personally dictated by me. I have reviewed the chart and agree that the record accurately reflects my personal performance of the history, physical exam, medical decision making, and the department course for this patient. I have also personally directed, reviewed, and agree with the discharge instructions and disposition. Disposition - Clinical Impression Clinical Impression: Rib fractures - Patient ED Disposition Is Patient to be Admitted: Yes Discussed With : Seven Macias - Disposition Disposition Time: 21:00 Condition: FAIR - Pt Status Changed To: Hospital Disposition Of: Inpatient - Admit Certification Admit to Inpatient:: After my assessment, the patient will require hospitalization for at least two midnights. This is because of the severity of symptoms shown, intensity of services needed, and/or the medical risk in this patient being treated as an outpatient.
[2018-01-13 20:53] LABS: ALB/GLOB RATIO 1.1 (1.0-2.1); ALBUMIN 3.8 g/dL (3.5-5.0); ALT/SGPT 33 U/L (21-72); AST/SGOT 28 U/L (17-59); BLOOD UREA NITROGEN 21 mg/dl (9-20); CALCIUM 9.4 mg/dL (8.4-10.2); GFR AFRICAN-AMERICAN > 60; GFR NON-AFRICAN AMERICAN > 60
[2018-01-13 21:14] LABS: INR 1.2 (0.9-1.2); PARTIAL THROMBOPLASTIN TIME 30.7 Seconds (25.6-37.1)
[2018-01-13 23:10] LABS: URINE BILIRUBIN NEGATIVE (NEGATIVE); URINE BLOOD NEGATIVE (NEGATIVE); URINE CLARITY SLIGHTY-CLOUDY (Clear); URINE COLOR AMBER (YELLOW); URINE GLUCOSE (UA) NEG (Normal); URINE LEUKOCYTE ESTERASE NEG Leu/uL (Negative); URINE PROTEIN 100 mg/dL (NEGATIVE)
[2018-01-14] MEDS ORDERED: Sodium Chloride 0.9% 1,000 ML IV SCH (00:45)
[2018-01-14 05:11] LABS: ABG ALLEN TEST YES; ARTERIAL BLOOD GAS HCO3 20.6 mmol/L (21-28); ARTERIAL BLOOD GAS HEMOGLOBIN 15.1 g/dL (11.7-17.4); ARTERIAL BLOOD GAS O2 CAPACITY 20.2 mL/dL (16-24); ARTERIAL BLOOD GAS O2 CONTENT 20.3 ML/dL (15-23); ARTERIAL BLOOD GAS O2 SAT 100.3 % (95-98); ARTERIAL BLOOD GAS PCO2 41 mm/Hg (35-45); ARTERIAL BLOOD GAS PH 7.31 (7.35-7.45); ARTERIAL BLOOD GAS PO2 104 mm/Hg (80-100); ARTERIAL BLOOD GAS TCO2 21.9 mmol/L (22-28)
[2018-01-14 07:04] LABS: HEMOGLOBIN 14.6 g/dL (12.0-18.0); MEAN CELL VOLUME 98.1 fl (80.0-94.0); MEAN CORPUSCULAR HEMOGLOBIN 32.7 pg (27.0-31.0); MEAN CORPUSCULAR HGB CONC 33.3 g/dL (33.0-37.0); RBC 4.46 Mil/uL (4.40-5.90); WHITE BLOOD COUNT 9.3 K/uL (4.8-10.8)
[2018-01-14 07:16] LABS: INR 1.2 (0.9-1.2); PARTIAL THROMBOPLASTIN TIME 30.5 Seconds (25.6-37.1); PROTHROMBIN TIME 13.1 Seconds (9.8-13.1)
[2018-01-14 07:28] LABS: T4 8.63 ug/dl (5.5-11.0)
[2018-01-14 07:33] LABS: ALB/GLOB RATIO 1.1 (1.0-2.1); ALBUMIN 3.6 g/dL (3.5-5.0); ALT/SGPT 33 U/L (21-72); AST/SGOT 24 U/L (17-59); BLOOD UREA NITROGEN 22 mg/dl (9-20); GFR AFRICAN-AMERICAN > 60; GFR NON-AFRICAN AMERICAN 57; HDL CHOLESTEROL 56 MG/DL (30-70); LDL CHOLESTEROL 73 mg/dL (0-129)
--- NOTE | 2018-01-14 08:55 | CARD ---
APPROVED REPORT EKG Measurement Heart [id number] <Conclusion> Sinus rhythm with premature supraventricular complexes and with occasional premature ventricular complexes Left axis deviation Pulmonary disease pattern Right bundle branch block T wave abnormality, consider lateral ischemia Abnormal ECG
--- NOTE | 2018-01-14 09:01 | CARD ---
APPROVED REPORT EKG Measurement Heart [id number] <Conclusion> Sinus rhythm with occasional premature ventricular complexes and premature atrial complexes Left axis deviation Right bundle branch block Inferior infarct, age undetermined Abnormal ECG
--- NOTE | 2018-01-14 09:07 | CT ---
PROCEDURE: CT Chest without contrast HISTORY: rib injury COMPARISON: 09/03/2017 TECHNIQUE: Contiguous axial images were obtained through the chest without intravenous contrast enhancement. Sagittal and coronal reconstructions were performed. Radiation dose (DLP): 447.25 mGy-cm. This CT exam was performed using one or more of the following dose reduction techniques: Automated exposure control, adjustment of the mA and/or kV according to patient size, and/or use of iterative reconstruction technique. FINDINGS: Evaluation limited due to respiratory motion artifact. LUNGS: Minimal right lower lobe compressive atelectasis. No pulmonary infiltrate. MEDIASTINUM: Unremarkable thoracic aorta. No aneurysm. Cardiomegaly. No pericardial effusion. Coronary arterial calcification. Borderline dilatation of main pulmonary artery to a diameter of 3.2 cm. Please correlate with possible pulmonary arterial hypertension. No lymphadenopathy. PLEURA: Moderate bilateral pleural effusion. No pneumothorax. 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 BONES: Severe compression deformity of the L1 vertebra unchanged from prior. Mild interval increase in compression deformity of the T6 vertebra compared to prior. No other fracture identified. UPPER ABDOMEN: Grossly unremarkable. OTHER FINDINGS: None. IMPRESSION: Moderate bilateral pleural effusion. No definite rib fracture identified. Evaluation limited due to respiratory motion artifact. Severe compression deformity of the L1 vertebra unchanged from prior. Increasing compression deformity of the T6 vertebra compared to prior examination. No new fracture identified.
[2018-01-14] MEDS: Albuterol-Ipratrop 3 mg / 0.5 (3 ml) UD INH PRN ×2 (09:18→16:19)
--- NOTE | 2018-01-14 11:21 | RAD ---
HISTORY: Multiple Rib Fx COMPARISON: 08/30/2017 TECHNIQUE: Chest PA and lateral FINDINGS: LUNGS: No pulmonary infiltrate. Coarse calcification in left upper lobe, unchanged. PLEURA: Small bilateral pleural effusion. No pneumothorax. CARDIOVASCULAR: Normal. OSSEOUS STRUCTURES: No significant abnormalities. VISUALIZED UPPER ABDOMEN: Normal. OTHER FINDINGS: None. IMPRESSION: Small bilateral pleural effusion. No infiltrate.
--- NOTE | 2018-01-14 13:25 | CP.PCM.HP ---
History of Present Illness - History of Present Illness History of Present Illness: CC: S/P Trip& fall. 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 Pt c/o of constant and intermittent R upper chest wall pain, moderate-severe intensity 7:10 after fall on stereo furniture while at home after loosing his balance. Worsening symptoms: Chest wall Pain with breathing 2nd to fall, SOB, SOB on exertion, dry cough on and off. Aggravated factor: Changing positions/exercise. Pt denied: Head injury, Fever, chills, n/v/d, abdominal pain, urinary symptoms , dizziness, syncope, CP, headache, palpitations, sick contact, recent travel out of [facility]. Chest CT shows: Small pleural effusion b/l, RLL compression atelectasis. Severe compression deformity L1, increased compression deformity of the T6 compare to previous examination. EKG: Sinus rhythm with occasional PVC and atrial complexes. L axis deviation, R BBB, inferior infarct age undetermined. Present on Admission - Present on Admission Any Indicators Present on Admission: No Review of Systems - Constitutional Constitutional: Frequent Falls, Weakness - EENT Eyes: Other (negative) Ears: Decreased Hearing (L ear) Nose/Mouth/Throat: Other (negative) - Cardiovascular Cardiovascular: Other (negative) - Respiratory Respiratory: Cough, Dyspnea, Dyspnea on Exertion, Pain with Coughing - Gastrointestinal Gastrointestinal: Other (negative) - Genitourinary Genitourinary: Other (negative) - Musculoskeletal Musculoskeletal: Back Pain, Muscle Weakness - Integumentary Integumentary: Other (negative) - Neurological Neurological: Frequent Falls, Other (negative) - Psychiatric Psychiatric: Other (negative) - Endocrine Endocrine: Other (negative) - Hematologic/Lymphatic Hematologic: Other (negative) Past Patient History - Past Medical History & Family History Past Medical History?: Yes - Past Social History Alcohol: None Drugs: Denies Home Situation {Lives}: With Family - CARDIAC Hx Cardiac Disorders: Yes Hx Hypercholesterolemia: Yes Hx Hypertension: Yes - PULMONARY Hx Respiratory Disorders: No Hx Asthma: No - NEUROLOGICAL Hx Neurological Disorder: No - HEENT Hx HEENT Problems: Yes Hx Deafness: Yes - RENAL Hx Chronic Kidney Disease: No Hx Kidney Stones: No - ENDOCRINE/METABOLIC Hx Endocrine Disorders: No Hx Hyperthyroidism: No Hx Hypothyroidism: No - HEMATOLOGICAL/ONCOLOGICAL Hx Blood Disorders: No Hx Human Immunodeficiency Virus (HIV): No - INTEGUMENTARY Hx Dermatological Problems: No - MUSCULOSKELETAL/RHEUMATOLOGICAL Hx Musculoskeletal Disorders: Yes Hx Falls: Yes (reason for adm) - GASTROINTESTINAL Hx Gastrointestinal Disorders: Yes Hx Gastroesophageal Reflux: Yes - GENITOURINARY/GYNECOLOGICAL Hx Genitourinary Disorders: No - PSYCHIATRIC Hx Psychophysiologic Disorder: No Hx Substance Use: No - SURGICAL HISTORY Hx Surgeries: Yes Other/Comment: prostate sx?/rectal sx 1969 - ANESTHESIA Hx Anesthesia: Yes Hx Anesthesia Reactions: No Hx Malignant Hyperthermia: No Meds Allergies/Adverse Reactions: Allergies Allergy/AdvReac Type Severity Reaction Status Date / Time No Known Allergies Allergy Verified 01/13/18 18:54 Physical Exam - Constitutional Appears: No Acute Distress - Head Exam Head Exam: NORMAL INSPECTION - Eye Exam Eye Exam: PERRL - ENT Exam Additional comments: Decreased hearing L ear - Neck Exam Neck exam: Positive for: Normal Inspection - Respiratory Exam Respiratory Exam: Decreased Breath Sounds (b/l) - Cardiovascular Exam Cardiovascular Exam: REGULAR RHYTHM - GI/Abdominal Exam GI & Abdominal Exam: Normal Bowel Sounds, Soft - Extremities Exam Extremities exam: Positive for: normal inspection - Back Exam Back exam: NORMAL INSPECTION - Neurological Exam Neurological exam: Alert Additional comments: Oriented x2, at times forgetful - Psychiatric Exam Psychiatric exam: Normal Mood - Skin Skin Exam: Normal Color, Warm Results - Vital Signs Recent Vital Signs: Last Vital Signs Temp 97.5 F L 01/14/18 08:47 Pulse 95 H 01/14/18 08:47 Resp 20 01/14/18 08:47 BP 109/65 01/14/18 08:47 Pulse Ox 96 01/14/18 08:47 reviewed J.P. - Labs Result Diagrams: 01/14/18 06:15 01/14/18 06:15 Labs: Laboratory Results - last 24 hr 01/13/18 01/13/18 01/13/18 20:15 20:15 20:40 WBC 8.1 RBC 4.71 Hgb 15.4 Hct 46.1 MCV 98.0 H D MCH 32.7 H MCHC 33.3 RDW 14.7 H Plt Count 133 MPV 10.4 Neut % (Auto) 68.2 Lymph % (Auto) 18.7 L Moffat % (Auto) 9.7 Eos % (Auto) 2.3 Baso % (Auto) 1.1 Neut # (Auto) 5.5 Lymph # (Auto) 1.5 Moffat # (Auto) 0.8 Eos # (Auto) 0.2 Baso # (Auto) 0.1 PT 13.0 INR 1.2 APTT 30.7 pCO2 pO2 HCO3 ABG pH ABG Total CO2 ABG O2 Saturation ABG O2 Content ABG Base Excess ABG Hemoglobin ABG Carboxyhemoglobin POC ABG HHb (Measured) ABG Methemoglobin ABG O2 Capacity Sukhjinder Test A-a O2 Difference Hgb O2 Saturation FiO2 Sodium 145 Potassium 4.2 Chloride 108 H Carbon Dioxide 21 L Anion Gap 20 BUN 21 H Creatinine 1.1 Est GFR ( Amer) > 60 Est GFR (Non-Af Amer) > 60 Random Glucose 133 H Calcium 9.4 Total Bilirubin 1.0 AST 28 ALT 33 Alkaline Phosphatase 73 Total Protein 7.2 Albumin 3.8 Globulin 3.4 Albumin/Globulin Ratio 1.1 Triglycerides Cholesterol LDL Cholesterol Direct HDL Cholesterol Thyroxine (T4) TSH 3rd Generation Urine Color Urine Clarity Urine pH Ur Specific [place] Urine Protein Urine Glucose (UA) Urine Ketones Urine Blood Urine Nitrate Urine Bilirubin Urine Urobilinogen Ur Leukocyte Esterase Urine RBC (Auto) Urine Microscopic WBC Hyaline Casts 01/13/18 01/14/18 01/14/18 22:53 00:39 06:15 WBC 9.3 RBC 4.46 Hgb 14.6 Hct 43.8 MCV 98.1 H MCH 32.7 H MCHC 33.3 RDW 15.0 H Plt Count 118 L MPV Neut % (Auto) Lymph % (Auto) Moffat % (Auto) Eos % (Auto) Baso % (Auto) Neut # (Auto) Lymph # (Auto) Moffat # (Auto) Eos # (Auto) Baso # (Auto) PT INR APTT pCO2 41 pO2 104 H HCO3 20.6 L ABG pH 7.31 L ABG Total CO2 21.9 L ABG O2 Saturation 100.3 H ABG O2 Content 20.3 ABG Base Excess -5.4 L ABG Hemoglobin 15.1 ABG Carboxyhemoglobin 2.9 H POC ABG HHb (Measured) -0.3 L ABG Methemoglobin 2.3 ABG O2 Capacity 20.2 Sukhjinder Test Yes A-a O2 Difference 44.0 Hgb O2 Saturation 95.1 FiO2 28.0 Sodium Potassium Chloride Carbon Dioxide Anion Gap BUN Creatinine Est GFR ( Amer) Est GFR (Non-Af Amer) Random Glucose Calcium Total Bilirubin AST ALT Alkaline Phosphatase Total Protein Albumin Globulin Albumin/Globulin Ratio Triglycerides Cholesterol LDL Cholesterol Direct HDL Cholesterol Thyroxine (T4) TSH 3rd Generation Urine Color Vika Urine Clarity Slighty-cloudy Urine pH 5.0 Ur Specific [place] 1.026 Urine Protein 100 Urine Glucose (UA) Neg Urine Ketones Negative Urine Blood Negative Urine Nitrate Negative Urine Bilirubin Negative Urine Urobilinogen 4.0 Ur Leukocyte Esterase Neg Urine RBC (Auto) 3 Urine Microscopic WBC 2 Hyaline Casts 6-10 H 01/14/18 01/14/18 06:15 06:15 WBC RBC Hgb Hct MCV MCH MCHC RDW Plt Count MPV Neut % (Auto) Lymph % (Auto) Moffat % (Auto) Eos % (Auto) Baso % (Auto) Neut # (Auto) Lymph # (Auto) Moffat # (Auto) Eos # (Auto) Baso # (Auto) PT 13.1 INR 1.2 APTT 30.5 pCO2 pO2 HCO3 ABG pH ABG Total CO2 ABG O2 Saturation ABG O2 Content ABG Base Excess ABG Hemoglobin ABG Carboxyhemoglobin POC ABG HHb (Measured) ABG Methemoglobin ABG O2 Capacity Sukhjinder Test A-a O2 Difference Hgb O2 Saturation FiO2 Sodium 146 Potassium 4.4 Chloride 108 H Carbon Dioxide 22 Anion Gap 20 BUN 22 H Creatinine 1.2 Est GFR ( Amer) > 60 Est GFR (Non-Af Amer) 57 Random Glucose 127 H Calcium 9.0 Total Bilirubin 1.0 AST 24 ALT 33 Alkaline Phosphatase 68 Total Protein 6.7 Albumin 3.6 Globulin 3.2 Albumin/Globulin Ratio 1.1 Triglycerides 70 Cholesterol 151 LDL Cholesterol Direct 73 HDL Cholesterol 56 Thyroxine (T4) 8.63 TSH 3rd Generation 3.77 Urine Color Urine Clarity Urine pH Ur Specific [place] Urine Protein Urine Glucose (UA) Urine Ketones Urine Blood Urine Nitrate Urine Bilirubin Urine Urobilinogen Ur Leukocyte Esterase Urine RBC (Auto) Urine Microscopic WBC Hyaline Casts reviewed J.P. - EKG Data EKG comments: reviewed J.P. - Imaging and Cardiology Chest x-ray Status: Report reviewed by me (SoilaP.) CT scan - chest Status: Report reviewed by me (J.P.) Assessment & Plan (1) Status post fall Status: Acute Priority: High (2) Right-sided chest wall pain Status: Acute Comment: 2nd to fall. (3) Pleural effusion, bilateral Status: Acute Priority: Low (4) Cough Status: Acute Priority: Medium (5) Lumbar disc herniation Status: Chronic Priority: High (6) Hx of essential hypertension Status: Chronic Priority: Low - Assessment and Plan (Free Text) Plan: F/U Spinal canal Lumbar/Thoracic MRI, Continue Duoneb, Robitussin DM, Toradol, Morphine and rest of Tx. Echo, cardiology consult. - Date & Time Date: 01/14/18 Time: 09:30
[2018-01-14] MEDS: guaiFENesin DM 200 mg-20 mg/10 ml UD PO PRN (17:02)
[2018-01-15] MEDS: guaiFENesin DM 200 mg-20 mg/10 ml UD PO PRN ×3 (05:24→21:33)
[2018-01-15] MEDS: Albuterol-Ipratrop 3 mg / 0.5 (3 ml) UD INH PRN ×2 (05:38→17:59)
--- NOTE | 2018-01-15 12:08 | CP.PCM.CON ---
History of Present Illness - History of Present Illness History of Present Illness: This 87-year-old man was brought to the emergency room after "losing his balance and falling" (as per his ). The patient has had a rib fractures and complains of severe pain on movement and on deep breathing. The indicated that have not been earlier episodes of falling. The patient is being treated with an anti-hypertensive and a statin only. The denies any prior episodes of falling. She denies any episode of myocardial infarction or congestive cardiac failure. The patient has rapidly become in for over the last year and was hospitalized in August when an echocardiogram revealed significant aortic stenosis and a depressed left ventricular systolic function. Coronary angiogram and catheterization was offered at that time and the patient and his decided to wait after Teri to make a decision about it. They have not followed up on this suggestion. The indicates that the patient has had rapidly progressive cognitive decline. The patient is not able to say whether he has any episode of orthopnea. He reports significant fatigue and unsteady gait. Physical examination shows an elderly man who reports significant chest pain related to the fall and a fractured ribs. His heart rate was 74 bpm and regular and his blood pressure is 124/70 mmHg. His jugular venous pressure was not elevated and there was minimal pitting edema of both lower extremities. The apex was not palpable the first heart sound was normal the second heart sound was absent. There was an ejection systolic murmur in the aortic area conducted to the base of the neck. There were no rales. Abdomen was soft liver and spleen are not palpable. 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 Review of his echocardiogram shows depressed left ventricle systolic function with severe aortic stenosis and calculated aortic valve area in the range of 0.5-0.6 cm. His lab data was noted. Impression: Severe aortic stenosis with depressed left ventricular systolic function. If fall possibly due to unsteady gait, possibly due to aortic stenosis. Blunt injury to the chest following a fall. I have discussed the implications of these echocardiographic findings with the of the patient. I await her decision regarding further workup and possible aortic valve replacement. Given his declining cognitive functions the benefits of aortic valve replacement will be purely in terms of reducing mortality but not [id number]. Past Patient History - Past Medical History & Family History Past Medical History?: Yes - Past Social History Alcohol: None Drugs: Denies Home Situation {Lives}: With Family - CARDIAC Hx Cardiac Disorders: Yes Hx Hypercholesterolemia: Yes Hx Hypertension: Yes - PULMONARY Hx Respiratory Disorders: No Hx Asthma: No - NEUROLOGICAL Hx Neurological Disorder: No - HEENT Hx HEENT Problems: Yes Hx Deafness: Yes - RENAL Hx Chronic Kidney Disease: No Hx Kidney Stones: No - ENDOCRINE/METABOLIC Hx Endocrine Disorders: No Hx Hyperthyroidism: No Hx Hypothyroidism: No - HEMATOLOGICAL/ONCOLOGICAL Hx Blood Disorders: No Hx Human Immunodeficiency Virus (HIV): No - INTEGUMENTARY Hx Dermatological Problems: No - MUSCULOSKELETAL/RHEUMATOLOGICAL Hx Musculoskeletal Disorders: Yes Hx Falls: Yes (reason for adm) - GASTROINTESTINAL Hx Gastrointestinal Disorders: Yes Hx Gastroesophageal Reflux: Yes - GENITOURINARY/GYNECOLOGICAL Hx Genitourinary Disorders: No - PSYCHIATRIC Hx Psychophysiologic Disorder: No Hx Substance Use: No - SURGICAL HISTORY Hx Surgeries: Yes Other/Comment: prostate sx?/rectal sx 1969 - ANESTHESIA Hx Anesthesia: Yes Hx Anesthesia Reactions: No Hx Malignant Hyperthermia: No Meds Allergies/Adverse Reactions: Allergies Allergy/AdvReac Type Severity Reaction Status Date / Time No Known Allergies Allergy Verified 01/13/18 18:54 - Medications Medications: Current Medications Acetaminophen (Tylenol 325mg Tab) 650 mg PO Q6 PRN PRN Reason: Pain, moderate (4-7) Albuterol/Ipratropium (Duoneb 3 Mg/0.5 Mg (3 Ml) Ud) 3 ml INH RQID FRITZ Atorvastatin Calcium (Lipitor) 10 mg PO HS FRITZ Enoxaparin Sodium (Lovenox) 40 mg SC DAILY FRITZ PRN Reason: Protocol Guaifenesin/Dextromethorphan (Robitussin Dm) 10 ml PO Q6 PRN PRN Reason: Cough Last Admin: 01/15/18 05:24 Dose: 10 ml Results - Vital Signs Recent Vital Signs: Last Vital Signs Temp 97.6 F 01/15/18 11:30 Pulse 92 H 01/15/18 11:30 Resp 20 01/15/18 11:30 BP 108/71 01/15/18 11:30 Pulse Ox 96 01/15/18 11:30 - Labs Result Diagrams: 01/14/18 06:15 01/14/18 06:15
[2018-01-15] MEDS: Albuterol-Ipratrop 3 mg / 0.5 (3 ml) UD INH SCH ×3 (12:13→19:59)
--- NOTE | 2018-01-15 12:23 | CARD ---
APPROVED REPORT EXAM: Two-dimensional and M-mode echocardiogram with Doppler and color Doppler. Other Information Quality : GoodRhythm : NSR INDICATION Abnormal EKG/Arrhythmia 2D DIMENSIONS IVSd1.02 (0.7-1.1cm)LVDd5.09 (3.9-5.9cm) LVOT Diameter2.00 (1.8-2.4cm)PWd0.81 (0.7-1.1cm) IVSs1.09 (0.8-1.2cm)LVDs3.75 (2.5-4.0cm) FS (%) 26.4 %PWs1.08 (0.8-1.2cm) M-Mode DIMENSIONS Left Atrium (MM)5.81 (2.5-4.0cm)IVSd0.78 (0.7-1.1cm) Aortic Root3.13 (2.2-3.7cm)LVDd6.56 (4.0-5.6cm) Aortic Cusp Exc.0.81 (1.5-2.0cm)PWd0.88 (0.7-1.1cm) IVSs1.81 cmFS (%) 39 % LVDs4.00 (2.0-3.8cm)PWs1.75 cm Aortic Valve AoV Peak Skwathfn138.3cm/sAoV VTI56.3cmAO Peak GR.37mmHg LVOT Peak Msjvwcfa05.8cm/sLVOT VTI10.56cmAO Mean GR.23mmHg MARTHA (VMAX)0.92jk3LEQ (VTI)0.25fd8MI P 1/2 Kugl197al Mitral Valve E/A ratio0.0 TDI E/Lateral E'0.0E/Medial E'0.0 Tricuspid Valve TR Peak Mnowiwft438es/sRAP LIZSNXPP63ovNrFU Peak Gr.37mmHg [id number] LEFT VENTRICLE The left ventricle is normal size. The systolic function is moderately impaired. The Ejection Fraction is 30-35%. There is global hypokinesis of the left ventricle. Transmitral Doppler flow pattern is Grade I-abnormal relaxation pattern. RIGHT VENTRICLE The right ventricle is normal size. The right ventricular systolic function is normal. ATRIA The left atrium size is normal. The right atrium size is normal. AORTIC VALVE The aortic valve is moderately to severely calcified. No aortic regurgitation is present. There is severe valvular aortic stenosis. MITRAL VALVE The mitral valve is normal in structure. There is no mitral valve stenosis. Mitral regurgitation is mild to moderate. TRICUSPID VALVE The tricuspid valve is normal in structure. There is trace to mild tricuspid regurgitation. Right ventricular systolic pressure is estimated at 47 mmHg. There is mild-moderate pulmonary hypertension. PULMONIC VALVE The pulmonary valve is normal in structure. There is no pulmonic valvular regurgitation. GREAT VESSELS The aortic root is normal in size. The IVC is normal in size and collapses >50% with inspiration. PERICARDIAL EFFUSION The pericardium appears normal. <Conclusion> The left ventricle is normal size. The systolic function is moderately impaired. The Ejection Fraction is 30-35%. There is global hypokinesis of the left ventricle. Mitral regurgitation is mild to moderate. There is trace to mild tricuspid regurgitation. Right ventricular systolic pressure is estimated at 47 mmHg. There is mild-moderate pulmonary hypertension. The aortic valve is moderately to severely calcified. There is severe valvular aortic stenosis.
[2018-01-15] MEDS: Enoxaparin 40 mg Syringe SC SCH (12:28)
--- NOTE | 2018-01-15 13:50 | CP.PCM.PN ---
Subjective - Date & Time of Evaluation Date of Evaluation: 01/15/18 Time of Evaluation: 11:10 - Subjective Subjective: F/U S/P fall. complains of cough , SOB on and off Objective - Vital Signs/Intake and Output Vital Signs (last 24 hours): Temp Pulse Resp BP Pulse Ox 97.6 F 92 H 20 108/71 96 01/15/18 11:30 01/15/18 11:30 01/15/18 11:30 01/15/18 11:30 01/15/18 11:30 - Medications Medications: Current Medications Acetaminophen (Tylenol 325mg Tab) 650 mg PO Q6 PRN PRN Reason: Pain, moderate (4-7) Last Admin: 01/15/18 12:36 Dose: 650 mg Albuterol/Ipratropium (Duoneb 3 Mg/0.5 Mg (3 Ml) Ud) 3 ml INH RQID FRITZ Last Admin: 01/15/18 12:13 Dose: 3 ml Atorvastatin Calcium (Lipitor) 10 mg PO HS FRITZ Enoxaparin Sodium (Lovenox) 40 mg SC DAILY FRITZ PRN Reason: Protocol Last Admin: 01/15/18 12:28 Dose: Not Given Guaifenesin/Dextromethorphan (Robitussin Dm) 10 ml PO Q6 PRN PRN Reason: Cough Last Admin: 01/15/18 05:24 Dose: 10 ml - Labs Labs: 01/14/18 06:15 01/14/18 06:15 PT 13.1 Seconds (9.8-13.1) 01/14/18 06:15 INR 1.2 (0.9-1.2) 01/14/18 06:15 APTT 30.5 Seconds (25.6-37.1) 01/14/18 06:15 - Constitutional Appears: No Acute Distress - Head Exam Head Exam: NORMAL INSPECTION - Eye Exam Eye Exam: PERRL - ENT Exam Additional comments: Decreasing hearing - Neck Exam Neck Exam: Normal Inspection - Respiratory Exam Respiratory Exam: Decreased Breath Sounds (bl), Rhonchi (scattered) Additional comments: minimal R chest wall pain - Cardiovascular Exam Cardiovascular Exam: REGULAR RHYTHM - GI/Abdominal Exam GI & Abdominal Exam: Soft, Normal Bowel Sounds - Extremities Exam Extremities Exam: Normal Inspection - Back Exam Back Exam: NORMAL INSPECTION - Neurological Exam Neurological Exam: Awake Additional comments: confused , forgetful , generalized weakness - Psychiatric Exam Psychiatric exam: Normal Mood - Skin Skin Exam: Warm Assessment and Plan (1) Status post fall Status: Acute (2) Right-sided chest wall pain Status: Acute (3) Pleural effusion, bilateral Status: Acute (4) Cough Status: Acute (5) Lumbar disc herniation Status: Chronic (6) Hx of essential hypertension Status: Chronic - Assessment and Plan (Free Text) Plan: had ECHO , DUO Neb QID and PRN , O2 NC refusing Lovenox , f/u MRI
[2018-01-16] MEDS: Albuterol-Ipratrop 3 mg / 0.5 (3 ml) UD INH SCH ×4 (07:50→19:31)
[2018-01-16] MEDS: Enoxaparin 40 mg Syringe SC SCH (09:05)
[2018-01-16] MEDS: guaiFENesin DM 200 mg-20 mg/10 ml UD PO PRN ×3 (09:06→23:31)
--- NOTE | 2018-01-16 19:08 | CP.PCM.PN ---
Subjective - Date & Time of Evaluation Date of Evaluation: 01/16/18 Time of Evaluation: 12:20 - Subjective Subjective: F/U S/P Fall. cough , SOB on and off Objective - Vital Signs/Intake and Output Vital Signs (last 24 hours): Temp Pulse Resp BP Pulse Ox 97.2 F L 94 H 18 115/72 97 01/16/18 15:43 01/16/18 15:43 01/16/18 15:43 01/16/18 15:43 01/16/18 15:43 - Medications Medications: Current Medications Acetaminophen (Tylenol 325mg Tab) 650 mg PO Q6 PRN PRN Reason: Pain, moderate (4-7) Last Admin: 01/16/18 09:07 Dose: 650 mg Albuterol/Ipratropium (Duoneb 3 Mg/0.5 Mg (3 Ml) Ud) 3 ml INH RQID FRITZ Last Admin: 01/16/18 15:14 Dose: 3 ml Albuterol/Ipratropium (Duoneb 3 Mg/0.5 Mg (3 Ml) Ud) 3 ml INH RQ4 PRN PRN Reason: Shortness of Breath Last Admin: 01/15/18 17:59 Dose: 3 ml Atorvastatin Calcium (Lipitor) 10 mg PO HS FRITZ Last Admin: 01/15/18 21:31 Dose: 10 mg Enoxaparin Sodium (Lovenox) 40 mg SC DAILY FRITZ PRN Reason: Protocol Last Admin: 01/16/18 09:05 Dose: 40 mg Guaifenesin/Dextromethorphan (Robitussin Dm) 10 ml PO Q6 PRN PRN Reason: Cough Last Admin: 01/16/18 15:08 Dose: 10 ml - Labs Labs: 01/14/18 06:15 01/14/18 06:15 PT 13.1 Seconds (9.8-13.1) 01/14/18 06:15 INR 1.2 (0.9-1.2) 01/14/18 06:15 APTT 30.5 Seconds (25.6-37.1) 01/14/18 06:15 - Constitutional Appears: No Acute Distress - Head Exam Head Exam: NORMAL INSPECTION - Eye Exam Eye Exam: PERRL - ENT Exam Additional comments: Decreasing hearing L ear - Neck Exam Neck Exam: Normal Inspection - Respiratory Exam Respiratory Exam: Chest Wall Tenderness (right minimal), Decreased Breath Sounds (b/l), Rhonchi (scattered at bases) - Cardiovascular Exam Cardiovascular Exam: REGULAR RHYTHM - GI/Abdominal Exam GI & Abdominal Exam: Soft, Normal Bowel Sounds - Extremities Exam Extremities Exam: Normal Inspection - Back Exam Back Exam: NORMAL INSPECTION - Neurological Exam Neurological Exam: Awake Additional comments: forgetful , generalized weakness - Psychiatric Exam Psychiatric exam: Normal Mood - Skin Skin Exam: Warm Assessment and Plan (1) Status post fall Status: Acute (2) Right-sided chest wall pain Status: Acute (3) Pleural effusion, bilateral Status: Acute (4) Cough Status: Acute (5) Lumbar disc herniation Status: Chronic (6) Hx of essential hypertension Status: Chronic - Assessment and Plan (Free Text) Plan: continue DuoNeb O2 , Tylenol , Patient's hospitalized , He can not live alone , PT recommended transfer to [facility]
[2018-01-17] MEDS: Albuterol-Ipratrop 3 mg / 0.5 (3 ml) UD INH SCH ×4 (07:02→19:04)
[2018-01-17] MEDS: Enoxaparin 40 mg Syringe SC SCH (08:42)
[2018-01-17] MEDS: guaiFENesin DM 200 mg-20 mg/10 ml UD PO PRN ×2 (08:45→17:58)
--- NOTE | 2018-01-17 14:42 | CP.PCM.PN ---
Subjective - Date & Time of Evaluation Date of Evaluation: 01/17/18 - Subjective Subjective: Forgeful , complaining of intermittent cough , lumbosacral pain Objective - Vital Signs/Intake and Output Vital Signs (last 24 hours): Temp Pulse Resp BP Pulse Ox 97.5 F L 93 H 18 117/80 98 01/17/18 12:12 01/17/18 12:12 01/17/18 12:12 01/17/18 12:12 01/17/18 12:12 - Medications Medications: Current Medications Acetaminophen (Tylenol 325mg Tab) 650 mg PO Q6 PRN PRN Reason: Pain, moderate (4-7) Last Admin: 01/17/18 03:36 Dose: 650 mg Albuterol/Ipratropium (Duoneb 3 Mg/0.5 Mg (3 Ml) Ud) 3 ml INH RQID FRITZ Last Admin: 01/17/18 11:01 Dose: 3 ml Albuterol/Ipratropium (Duoneb 3 Mg/0.5 Mg (3 Ml) Ud) 3 ml INH RQ4 PRN PRN Reason: Shortness of Breath Last Admin: 01/15/18 17:59 Dose: 3 ml Atorvastatin Calcium (Lipitor) 10 mg PO HS FRITZ Last Admin: 01/16/18 21:07 Dose: 10 mg Enoxaparin Sodium (Lovenox) 40 mg SC DAILY FRITZ PRN Reason: Protocol Last Admin: 01/17/18 08:42 Dose: 40 mg Guaifenesin/Dextromethorphan (Robitussin Dm) 10 ml PO Q6 PRN PRN Reason: Cough Last Admin: 01/17/18 08:45 Dose: 10 ml - Labs Labs: 01/14/18 06:15 01/14/18 06:15 PT 13.1 Seconds (9.8-13.1) 01/14/18 06:15 INR 1.2 (0.9-1.2) 01/14/18 06:15 APTT 30.5 Seconds (25.6-37.1) 01/14/18 06:15 - Constitutional Appears: Chronically Ill - Head Exam Head Exam: NORMOCEPHALIC - Eye Exam Eye Exam: PERRL - ENT Exam ENT Exam: Normal Exam - Neck Exam Neck Exam: Normal Inspection - Respiratory Exam Respiratory Exam: Decreased Breath Sounds (at bases) Additional comments: Ecchymosis R lower rib and R flank with mild tenderness - Cardiovascular Exam Cardiovascular Exam: REGULAR RHYTHM - GI/Abdominal Exam GI & Abdominal Exam: Soft, Normal Bowel Sounds - Extremities Exam Extremities Exam: Normal Inspection - Back Exam Back Exam: tenderness Additional comments: Minimal right chest wall pain - Neurological Exam Additional comments: Forgeful who generalized weakness no focal motor or sensory deficit - Psychiatric Exam Psychiatric exam: Anxious - Skin Skin Exam: Warm Assessment and Plan (1) Status post fall Status: Acute (2) Right-sided chest wall pain Status: Acute (3) Pleural effusion, bilateral Status: Acute (4) Cough Status: Acute (5) Lumbar disc herniation Status: Chronic (6) Hx of essential hypertension Status: Chronic - Assessment and Plan (Free Text) Plan: Continue DuoNeb ,Tylenol and of treatment Social Service for subacute rehab transfer
[2018-01-17] MEDS: Albuterol-Ipratrop 3 mg / 0.5 (3 ml) UD INH PRN (23:44)
[2018-01-18] MEDS: Albuterol-Ipratrop 3 mg / 0.5 (3 ml) UD INH PRN (04:02)
[2018-01-18] MEDS: guaiFENesin DM 200 mg-20 mg/10 ml UD PO PRN ×2 (05:44→13:01)
[2018-01-18] MEDS: Albuterol-Ipratrop 3 mg / 0.5 (3 ml) UD INH SCH ×3 (08:11→15:24)
[2018-01-18] MEDS: Enoxaparin 40 mg Syringe SC SCH (08:53)
[2018-01-18] MEDS ORDERED: Acetylcysteine 10% 30 ML IH SCH (11:00)
[2018-01-18 11:36] LABS: MEAN CELL VOLUME 99.5 fl (80.0-94.0); MEAN CORPUSCULAR HGB CONC 33.2 g/dL (33.0-37.0); RBC 4.86 Mil/uL (4.40-5.90); RED CELL DISTRIBUTION WIDTH 14.8 % (11.5-14.5); WHITE BLOOD COUNT 10.8 K/uL (4.8-10.8)
[2018-01-18 11:44] LABS: BLOOD UREA NITROGEN 51 mg/dl (9-20); CALCIUM 9.1 mg/dL (8.4-10.2); GFR AFRICAN-AMERICAN > 60; GFR NON-AFRICAN AMERICAN 52
[2018-01-18] MEDS ORDERED: Acetylcysteine 10% 4 ML IH SCH (12:01)
--- NOTE | 2018-01-18 13:48 | RAD ---
HISTORY: Follow-up COMPARISON: 01/14/2018. FINDINGS: LUNGS: Pulmonary vascular congestion an acute finding compared to the prior study. PLEURA: Focal peripheral parenchymal or pleural-based calcifications left reva thorax CARDIOVASCULAR: Cardiomegaly. OSSEOUS STRUCTURES: No significant abnormalities. VISUALIZED UPPER ABDOMEN: Normal. OTHER FINDINGS: None. IMPRESSION: Cardiomegaly/acute CHF.
--- NOTE | 2018-01-18 15:37 | CP.PCM.PN ---
Objective - Vital Signs/Intake and Output Vital Signs (last 24 hours): Temp Pulse Resp BP Pulse Ox 97.4 F L 102 H 20 109/71 100 01/18/18 11:50 01/18/18 11:50 01/18/18 11:50 01/18/18 11:50 01/18/18 11:50 - Medications Medications: Current Medications Acetaminophen (Tylenol 325mg Tab) 650 mg PO Q6 PRN PRN Reason: Pain, moderate (4-7) Last Admin: 01/18/18 05:42 Dose: 650 mg Acetylcysteine (Mucomyst 10% 4ml) 4 ml IH RQID FRITZ Last Admin: 01/18/18 15:24 Dose: 4 ml Albuterol/Ipratropium (Duoneb 3 Mg/0.5 Mg (3 Ml) Ud) 3 ml INH RQID FRITZ Last Admin: 01/18/18 15:24 Dose: 3 ml Albuterol/Ipratropium (Duoneb 3 Mg/0.5 Mg (3 Ml) Ud) 3 ml INH RQ4 PRN PRN Reason: Shortness of Breath Last Admin: 01/18/18 04:02 Dose: 3 ml Atorvastatin Calcium (Lipitor) 10 mg PO HS FRITZ Last Admin: 01/17/18 21:22 Dose: 10 mg Enoxaparin Sodium (Lovenox) 40 mg SC DAILY FRITZ PRN Reason: Protocol Last Admin: 01/18/18 08:53 Dose: 40 mg Guaifenesin/Dextromethorphan (Robitussin Dm) 10 ml PO Q6 PRN PRN Reason: Cough Last Admin: 01/18/18 13:01 Dose: 10 ml - Labs Labs: 01/18/18 11:15 01/18/18 11:15 PT 13.1 Seconds (9.8-13.1) 01/14/18 06:15 INR 1.2 (0.9-1.2) 01/14/18 06:15 APTT 30.5 Seconds (25.6-37.1) 01/14/18 06:15 Assessment and Plan (1) Status post fall Status: Acute (2) Right-sided chest wall pain Status: Acute (3) Pleural effusion, bilateral Status: Acute (4) Cough Status: Acute (5) Lumbar disc herniation Status: Chronic (6) Hx of essential hypertension Status: Chronic
[2018-01-18 16:01] VITALS: BP 100/60; PULSE 94; RESP 17; TEMP 97.3; O2SAT 99
--- NOTE | 2018-01-18 21:33 | CP.PCM.DIS ---
Provider - Provider Date of Admission: 01/13/18 21:55 Attending physician: Seven Macias MD Diagnosis - Discharge Diagnosis (1) Status post fall Status: Acute Priority: High (2) Right-sided chest wall pain Status: Acute (3) Pleural effusion, bilateral Status: Acute Priority: Low (4) Cough Status: Acute Priority: Medium (5) Lumbar disc herniation Status: Chronic Priority: High (6) Hx of essential hypertension Status: Chronic Priority: Low Hospital Course - Lab Results Lab Results: Most Recent Lab Values WBC 10.8 K/uL (4.8-10.8) 01/18/18 11:15 RBC 4.86 Mil/uL (4.40-5.90) 01/18/18 11:15 Hgb 16.0 g/dL (12.0-18.0) 01/18/18 11:15 Hct 48.4 % (35.0-51.0) 01/18/18 11:15 MCV 99.5 fl (80.0-94.0) H 01/18/18 11:15 MCH 33.0 pg (27.0-31.0) H 01/18/18 11:15 MCHC 33.2 g/dL (33.0-37.0) 01/18/18 11:15 RDW 14.8 % (11.5-14.5) H 01/18/18 11:15 Plt Count 136 K/uL (130-400) 01/18/18 11:15 MPV 10.4 fl (7.2-11.7) 01/13/18 20:15 Neut % (Auto) 68.2 % (50.0-75.0) 01/13/18 20:15 Lymph % (Auto) 18.7 % (20.0-40.0) L 01/13/18 20:15 [place] % (Auto) 9.7 % (0.0-10.0) 01/13/18 20:15 Eos % (Auto) 2.3 % (0.0-4.0) 01/13/18 20:15 Baso % (Auto) 1.1 % (0.0-2.0) 01/13/18 20:15 Neut # (Auto) 5.5 K/uL (1.8-7.0) 01/13/18 20:15 Lymph # (Auto) 1.5 K/uL (1.0-4.3) 01/13/18 20:15 [place] # (Auto) 0.8 K/uL (0.0-0.8) 01/13/18 20:15 Eos # (Auto) 0.2 K/uL (0.0-0.7) 01/13/18 20:15 Baso # (Auto) 0.1 K/uL (0.0-0.2) 01/13/18 20:15 PT 13.1 Seconds (9.8-13.1) 01/14/18 06:15 INR 1.2 (0.9-1.2) 01/14/18 06:15 APTT 30.5 Seconds (25.6-37.1) 01/14/18 06:15 pCO2 41 mm/Hg (35-45) 01/14/18 00:39 pO2 104 mm/Hg (80-100) H 01/14/18 00:39 HCO3 20.6 mmol/L (21-28) L 01/14/18 00:39 ABG pH 7.31 (7.35-7.45) L 01/14/18 00:39 ABG Total CO2 21.9 mmol/L (22-28) L 01/14/18 00:39 ABG O2 Saturation 100.3 % (95-98) H 01/14/18 00:39 ABG O2 Content 20.3 ML/dL (15-23) 01/14/18 00:39 ABG Base Excess -5.4 mmol/L (-2.0-3.0) L 01/14/18 00:39 ABG Hemoglobin 15.1 g/dL (11.7-17.4) 01/14/18 00:39 ABG Carboxyhemoglobin 2.9 % (0.5-1.5) H 01/14/18 00:39 POC ABG HHb (Measured) -0.3 % (0.0-5.0) L 01/14/18 00:39 ABG Methemoglobin 2.3 % (0.0-3.0) 01/14/18 00:39 ABG O2 Capacity 20.2 mL/dL (16-24) 01/14/18 00:39 Sukhjinder Test Yes 01/14/18 00:39 A-a O2 Difference 44.0 mm/Hg 01/14/18 00:39 Hgb O2 Saturation 95.1 % (95.0-98.0) 01/14/18 00:39 FiO2 28.0 % 01/14/18 00:39 Sodium 143 mmol/l (132-148) 01/18/18 11:15 Potassium 4.9 MMOL/L (3.6-5.0) 01/18/18 11:15 Chloride 107 mmol/L (98-107) 01/18/18 11:15 Carbon Dioxide 15 mmol/L (22-30) L 01/18/18 11:15 Anion Gap 26 (10-20) H 01/18/18 11:15 BUN 51 mg/dl (9-20) H 01/18/18 11:15 Creatinine 1.3 mg/dl (0.8-1.5) 01/18/18 11:15 Est GFR ( Amer) > 60 01/18/18 11:15 Est GFR (Non-Af Amer) 52 01/18/18 11:15 Random Glucose 132 mg/dL (75-110) H 01/18/18 11:15 Calcium 9.1 mg/dL (8.4-10.2) 01/18/18 11:15 Total Bilirubin 1.0 mg/dl (0.2-1.3) 01/14/18 06:15 AST 24 U/L (17-59) 01/14/18 06:15 ALT 33 U/L (21-72) 01/14/18 06:15 Alkaline Phosphatase 68 U/L (38-126) 01/14/18 06:15 Total Protein 6.7 G/DL (6.3-8.2) 01/14/18 06:15 Albumin 3.6 g/dL (3.5-5.0) 01/14/18 06:15 Globulin 3.2 gm/dL (2.2-3.9) 01/14/18 06:15 Albumin/Globulin Ratio 1.1 (1.0-2.1) 01/14/18 06:15 Triglycerides 70 mg/DL (0-149) 01/14/18 06:15 Cholesterol 151 mg/dL (0-199) 01/14/18 06:15 LDL Cholesterol Direct 73 mg/dL (0-129) 01/14/18 06:15 HDL Cholesterol 56 MG/DL (30-70) 01/14/18 06:15 Thyroxine (T4) 8.63 ug/dl (5.5-11.0) 01/14/18 06:15 TSH 3rd Generation 3.77 mIU/ML (0.46-4.68) 01/14/18 06:15 Urine Color Vika (YELLOW) 01/13/18 22:53 Urine Clarity Slighty-cloudy (Clear) 01/13/18 22:53 Urine pH 5.0 (5.0-8.0) 01/13/18 22:53 Ur Specific [place] 1.026 (1.003-1.030) 01/13/18 22:53 Urine Protein 100 mg/dL (NEGATIVE) 01/13/18 22:53 Urine Glucose (UA) Neg mg/dL (Normal) 01/13/18 22:53 Urine Ketones Negative mg/dL (NEGATIVE) 01/13/18 22:53 Urine Blood Negative (NEGATIVE) 01/13/18 22:53 Urine Nitrate Negative (NEGATIVE) 01/13/18 22:53 Urine Bilirubin Negative (NEGATIVE) 01/13/18 22:53 Urine Urobilinogen 4.0 mg/dL (0.2-1.0) 01/13/18 22:53 Ur Leukocyte Esterase Neg Lloyd/uL (Negative) 01/13/18 22:53 Urine RBC (Auto) 3 /hpf (0-3) 01/13/18 22:53 Urine Microscopic WBC 2 /hpf (0-5) 01/13/18 22:53 Hyaline Casts 6-10 /hpf (0-2) H 01/13/18 22:53 Discharge Exam - Head Exam Head Exam: NORMOCEPHALIC Discharge Plan - Discharge Medications Prescriptions: Furosemide [Lasix] 20 mg PO DAILY #30 tablet - Follow Up Plan Condition: FAIR Disposition: REHAB FACILITY/REHAB UNIT Instructions: Preventing Falls
== END 2018-01-18 18:45 | DRG 313 ==
LOC: H.ER 18:47 → H.ERHOLD 21:55 → H.MEDSURG1 23:09 → H.TEL 01-15 11:26
PROVIDERS: ADMIT Internal Medicine Pulmonary Disease; ATTEND Internal Medicine Pulmonary Disease
DX: R07.89 Other chest pain (principal); J90 Pleural effusion, not elsewhere classified; R26.89 Other abnormalities of gait and mobility; M51.26 Other intervertebral disc displacement, lumbar region; I35.0 Nonrheumatic aortic (valve) stenosis; I45.10 Unspecified right bundle-branch block; I10 Essential (primary) hypertension; E78.5 Hyperlipidemia, unspecified; E78.00 Pure hypercholesterolemia, unspecified; K21.9 Gastro-esophageal reflux disease without esophagitis; H91.92 Unspecified hearing loss, left ear; R05 Cough; Z91.81 History of falling

== ENCOUNTER 2018-01-20 12:22 | Inpatient (IN) | payer MEDICARE ==
[2018-01-20 12:22] VITALS: BMI 25.8
[2018-01-20] MEDS ORDERED: Sodium Chloride 0.9% 1,000 ML IV STA ×2 (12:54→14:30)
--- NOTE | 2018-01-20 13:24 | RAD ---
PROCEDURE: CHEST RADIOGRAPH, 1 VIEW HISTORY: weakness, dyspnea COMPARISON: Comparison chest 01/18/2018. Comparison also made with CTA chest dated 09/03/2017. FINDINGS: LUNGS: Localized calcified plaque left upper anterior chest wall again noted. The. Mild to moderate pulmonary vascular congestion with bilateral lower lobe PLEURA: No As above. No apparent pneumothoraxpneumothorax or pleural fluid seen. CARDIOVASCULAR: Normal. OSSEOUS STRUCTURES: No significant abnormalities. VISUALIZED UPPER ABDOMEN: Normal. OTHER FINDINGS: None. IMPRESSION: Localized calcified plaque left upper anterior chest wall again noted. The. Mild to moderate pulmonary vascular congestion with bilateral lower lobe alveolar-type infiltrates and bilateral effusions.
[2018-01-20 13:40] LABS: BASO % 0.1 % (0.0-2.0); HEMOGLOBIN 17.4 g/dL (12.0-18.0); LYMPH # 0.9 K/uL (1.0-4.3); LYMPH % 5.3 % (20.0-40.0); MEAN CELL VOLUME 97.7 fl (80.0-94.0); MEAN CORPUSCULAR HEMOGLOBIN 32.5 pg (27.0-31.0); MEAN CORPUSCULAR HGB CONC 33.3 g/dL (33.0-37.0); MEAN PLATELET VOLUME 10.2 fl (7.2-11.7); MONO # 1.7 K/uL (0.0-0.8); NEUT # 14.2 K/uL (1.8-7.0); NEUT % 84.6 % (50.0-75.0); NRBC % 0.1 % (0.0-0.0); PLATELET COUNT 150 K/uL (130-400); RBC 5.35 Mil/uL (4.40-5.90); RED CELL DISTRIBUTION WIDTH 15.4 % (11.5-14.5); WHITE BLOOD COUNT 16.7 K/uL (4.8-10.8)
[2018-01-20 13:52] LABS: ALBUMIN 3.3 g/dL (3.5-5.0); ALT/SGPT 74 U/L (21-72); AST/SGOT 50 U/L (17-59); BLOOD UREA NITROGEN 58 mg/dl (9-20); CALCIUM 8.8 mg/dL (8.4-10.2); GFR AFRICAN-AMERICAN > 60; GFR NON-AFRICAN AMERICAN > 60
[2018-01-20 14:01] LABS: INR 1.4 (0.9-1.2); PARTIAL THROMBOPLASTIN TIME 32.4 Seconds (25.6-37.1); PROTHROMBIN TIME 16.1 Seconds (9.8-13.1)
[2018-01-20 14:07] LABS: ANISOCYTOSIS SLIGHT; LYMPHOCYTE 10 % (20-50); MONOCYTE 11 % (0-10); NEUTROPHIL 79 % (42-75); PLATELET ESTIMATE NORMAL (NORMAL); TOTAL CELLS COUNTED 100
[2018-01-20 14:08] LABS: TOXIC GRANULATION PRESENT
[2018-01-20 14:14] LABS: B-TYPE NATRIURETIC PEPTIDE 35600 pg/ml (0-900)
[2018-01-20] MEDS ORDERED: Piperacillin/Tazobact 3.375 gm Inj IVPB ONE (14:39)
[2018-01-20] MEDS ORDERED: Piperacillin/Tazobact 3.375 GM in Sodium Chloride 0.9% 100 ML IVPB ONE (14:45)
[2018-01-20 14:49] LABS: URINE BACTERIA RARE (<OCC); URINE BILIRUBIN NEGATIVE (NEGATIVE); URINE BLOOD SMALL (NEGATIVE); URINE CLARITY SLIGHTY-CLOUDY (Clear); URINE COLOR YELLOW (YELLOW); URINE GLUCOSE (UA) NEG (Normal); URINE LEUKOCYTE ESTERASE NEG Leu/uL (Negative); URINE PROTEIN NEGATIVE (NEGATIVE)
[2018-01-20 15:08] LABS: VENOUS BLOOD GAS PCO2 40 mmHg (40-60); VENOUS BLOOD GAS PO2 36 mm/Hg (30-55); VENOUS BLOOD PH 7.37 (7.32-7.43)
--- NOTE | 2018-01-20 15:11 | ED PDOC ---
HPI: SOB/CHF/COPD Time Seen by Provider: 01/20/18 12:33 Chief Complaint (Nursing): Shortness Of Breath History Per: Other ( is an 87 yo male with h/o severe who is transferred from [facility] where he was just admitted after an acute admission due to fall with injury to his right ribs. Patient has been in the nursing facility for only a few days when staff noticed that he is was less alert and short of breath. Patient not able to give history nor his . ) History/Exam Limitations: clinical condition, physical impairment Past Medical History Reviewed: Historical Data, Nursing Documentation, Vital Signs Vital Signs: Last Vital Signs Temp 98.1 F 01/20/18 12:27 Pulse 94 H 01/20/18 12:27 Resp 22 01/20/18 12:27 BP 126/71 01/20/18 14:52 Pulse Ox 100 01/20/18 14:26 - Medical History PMH: Back Problems (Herniated lumbar disc), HTN, Hypercholesterolemia, Hyperlipidemia Denies: Asthma, HIV, Hyperthyroidism, Hypothyroidism, Kidney Stones, Chronic Kidney Disease Other PMH: severe aortic stenosis with ventricular dysfunction - Family History Family History: States: Unknown Family Hx - Home Medications Home Medications: Ambulatory Orders Medication Instructions Recorded Atorvastatin [Lipitor] 10 mg PO HS 01/13/18 Valsartan [Diovan] 80 mg PO DAILY 01/13/18 Acetylcysteine [Mucomyst 10% 4ML] 4 ml IH RQID miguel 01/18/18 Albuterol/Ipratropium [Duoneb 3 3 ml INH RQID neb 01/18/18 mg/0.5 mg (3 ml) UD] Furosemide [Lasix] 20 mg PO DAILY #30 tablet 01/18/18 Acetaminophen [Tylenol 325mg tab] 650 mg PO Q4 PRN 01/20/18 Acetaminophen [Tylenol 325mg tab] 650 mg PO Q4 PRN 01/20/18 Bacitracin OINT [Bacitracin OINT] 1 appl TOP DAILY 01/20/18 LORazepam [Ativan] 1 mg PO Q12 PRN 01/20/18 Mag Hydrox/Aluminum Hyd/Simeth 30 ml PO Q4 PRN 01/20/18 [Maalox Advanced Suspension] Magnesium Hydroxide [Milk Of 30 ml PO DAILY PRN 01/20/18 Magnesia] QUEtiapine [Seroquel] 25 mg PO HS 01/20/18 - Allergies Allergies/Adverse Reactions: Allergies Allergy/AdvReac Type Severity Reaction Status Date / Time No Known Allergies Allergy Verified 01/13/18 18:54 Wells Criteria for PE - Wells Criteria for Pulmonary Embolism Clinical Signs and Symptoms of DVT: No P.E is #1 Diagnosis, or Equally Likely: No Heart Rate >100: Yes Immobilization at least 3 days;Surgery previous 4 weeks: Yes Previous, objectively diagnosed PE or DVT: No Hemoptysis: No Malignancy w/treatment within 6 months, or palliative: No Total Score: 3.0 Review of Systems ROS Statement: Except As Marked, All Systems Reviewed And Found Negative Review Of Systems: ROS cannot be obtained secondary to pt's inabilty to answer questions. Constitutional: Negative for: Fever Respiratory: Positive for: Shortness of Breath Physical Exam - Reviewed Nursing Documentation Reviewed: Yes Vital Signs Reviewed: Yes - Physical Exam Appears: Positive for: Uncomfortable, In Acute Distress (mild) Head Exam: Positive for: ATRAUMATIC, NORMAL INSPECTION, NORMOCEPHALIC Skin: Positive for: Normal Color (with ecchymosis in the right lateral chest wall) Eye Exam: Positive for: Normal appearance ENT: Positive for: Normal ENT Inspection Neck: Positive for: Normal Cardiovascular/Chest: Positive for: Regular Rate, Rhythm Respiratory: Positive for: Decreased Breath Sounds Gastrointestinal/Abdominal: Positive for: Normal Exam, Soft Back: Positive for: Normal Inspection Extremity: Positive for: Pedal Edema (mild) Neurologic/Psych: Positive for: Alert, Oriented - Laboratory Results Result Diagrams: 01/20/18 13:25 01/20/18 13:25 - ECG O2 Sat by Pulse Oximetry: 100 - Radiology X-Ray: Viewed By Me, Read By Radiologist X-Ray Interpretation: Infiltrates, Cardiomegaly, Other (chf) - Progress Condition: Improving,but remains with symptoms - Critical Care Total Time (In Min): 60 Medical Decision Making Medical Decision Making: Case d/w Dr. Ritter regarding findings concerning for pneumonia, CHF, ischemia and elevated d-dimer. Dr. Ritter discussed case with Dr. Maldonado for admission to ICU. In the interim, will start antibiotics for hospital acquired pneumonia, sepsis. Dr. Ritter requested Vanco and Truptin, ID consult. Also decreased the IVF rate from 200 cc/h to 80-100 cc/hr, in addition to Lasix 20mg IVP. Disposition - Clinical Impression Clinical Impression: Pneumonia, CHF (congestive heart failure) - Patient ED Disposition Is Patient to be Admitted: Yes Doctor Will See Patient In The: Hospital - Disposition Disposition: Transfer of Care Disposition Time: 14:30 Condition: GUARDED - Pt Status Changed To: Hospital Disposition Of: Inpatient - Admit Certification Admit to Inpatient:: After my assessment, the patient will require hospitalization for at least two midnights. This is because of the severity of symptoms shown, intensity of services needed, and/or the medical risk in this patient being treated as an outpatient. - POA Present On Arrival: None
--- NOTE | 2018-01-20 15:48 | HP ---
HISTORY OF PRESENT ILLNESS: This is an 87-year-old male who is known to me who was recently discharged from the hospital after a fall and rib fracture. The patient was in subacute rehabilitation at [place] when he was noticed to be short of breath and also his blood pressure was low. The patient was brought to the emergency room for evaluation where he was found to have leukocytosis of 16,000 as well as pulmonary edema and bilateral pulmonary infiltration. The patient was started on IV fluid and blood pressure came up after he was given 1-1/2 liter to 134/57. The patient was started on IV antibiotics, both vancomycin and Zosyn in the Care Unit. Intensive care consultation was requested and I discussed the patient's condition with the supervisor asphalt paving. The patient was subsequently admitted. The patient is lethargic and no history can be taken from the patient at this time due to lethargy. ALLERGIES: NO KNOWN ALLERGIES. MEDICATIONS: As per MAR. PAST MEDICAL HISTORY: Severe aortic stenosis, hypertension, recent fall and rib fracture. SOCIAL HISTORY: No history of smoking, EtOH or substance abuse. FAMILY HISTORY: Not known. PHYSICAL EXAMINATION: GENERAL: The patient is in bed in mild respiratory distress. He is currently in 100% nonrebreathing mask. VITAL SIGNS: Blood pressure 134/57, temperature 98.1, respiratory rate 22, and pulse 90. HEENT: Pupils equal, reactive to light. Normal-appearing mucosa of the conjunctivae, oropharynx and nasal membrane mucosa. NECK: Supple. No JVD. No carotid bruit. No lymph node. No thyromegaly. CHEST AND LUNGS: Bilateral symmetrical expansion. Good air exchange. Bilateral basilar rales. CARDIOVASCULAR: S1 and S2. No additional sounds. There is ejection systolic murmur on the aortic area to the neck. ABDOMEN: Positive bowel sounds. No tenderness. No organomegaly. No masses. EXTREMITIES: No cyanosis, no clubbing, no edema. CENTRAL NERVOUS SYSTEM: The patient is awake and moves all extremities equally, and examination also right to that the patient has large ecchymotic area on the right chest wall, which is present on this admission. ASSESSMENT: 1. Sepsis as the patient was tachypneic as well as have leukocytosis and bilateral pulmonary infiltration. 2. Severe aortic stenosis. 3. Pulmonary edema. 4. Status post fall with rib fracture. PLAN: We will give the patient vancomycin and Zosyn. Decrease IV fluid as the patient has bilateral pulmonary edema and we will give some Lasix at this point. Discussed the patient's condition with ER physician as well as with supervisor asphalt paving. Cox Monett MD [place]
--- NOTE | 2018-01-20 15:53 | CP.CCUPN ---
CCU Subjective - Physician Review Subjective (Free Text): ICU admission from ER per PMD; [facility] 87M admitted for hypotension, resp distress, Sepsis, pulm edema, and bilat PNA. Just discharged from [facility] days ago to [facility]. Given fluid challenge for hypotension upon presentation to ER, subsequent SBP up to 130, HR 90s in sinus. Now given Lasix IV as per PMD instructions. Otherwise on nasal cannula at 3 LPM, SPO2 100%. Diuresed approx. 1300ml urine since Lasix. Other VS and I/Os reviewed. ROS: No other pertinent negs or positives on 10+ system review unobtainable, in resp distress. Allergies: NKDA Outpt Meds: Mucomyst, Duoneb, Lipitor, Lasix, Ativan, Seroquel, Diovan. PMSFH: HTN, Deafness, Severe Aortic stenosis, h/o Falls. All other Nursing and physician documentation reviewed to date; no new pertinent info noted relevant to current medical problems. EXAM- HEENT: no icterus, no gaze preference, pupils equal and reactive, no icterus NECK: No JVD, supple, carotids equal upstroke bilat/no bruits CHEST: decreased BS bases, no wheezes audible HEART: regular tachy, distant, S1S2, no rubs. ABD: soft, mild distention, no tympany, no palp tenderness, BS hypoactive, liver edge nonpalpable. EXT: ++ edema, No peripheral cyanosis, but slight mottling of the feet noted, and nailbeds are dusky, no calf tenderness or palpable cords, distal pulses intact and symmetrical. NEURO: no focal motor deficits, withdraws to pain. Opens eyes to loud name calling. SKIN: no rashes, warm and dry. Old ecchymoses over RUE and RLE. LABS: admission - WBC= 16.7 HGB= 17.4 PLTs= 150 K INR= 1.4 dDimer 3346 ABG: none Na= 146 K= 4.3 CL= 109 HCO3= 19 BUN/Cr= 58/1.1 BS= 110 Trop #1= 0.159 BNP= 45193 CXR: poor inspiratory film, asymmetric interstitial changes, left worse than right with bibasilar infiltrates (my interp). EKG; Sinus 93/min, LAD / LAHB, T inversions kailash-septal leads, ICRBBB. Essentially same compared to 01/14 study ( my interp). IMPRESSION / MAJOR PROBLEMS NOW: 1. Acute Resp Insuff 2 bilateral Pneumonia versus compressive atelectasis with bilat pleural effusions ( as seen on last CT Chest 01/13) and Decompensated left CHF and h/o Pulm HTN 2. Azotemia / Dehydration; r/o CKD 2 Cardiomyopathy 3. r/o Acute / Subacute MS 4. 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 5. Senile Dementia PLAN: 1. Empiric Abx coverage, Sputum C&S, legionella urine Ag. 2. Appears too lethargic for BiPAP, will place on HFNC support if he desats. Clarify any Advance Directives, otherwise may need MV support. Await ABG Shock Panel. 3. Consider topical / IV nitrates; may need short term inotropic support. Repeat CT Chest for f/u from last study on 01/13 to clarify infiltrates vs atelectasis with effusion. 4. Serial Lactates, mixed venous satn monitoring, serial Trops, repeat BNP after diuresis for baseline level. 5. Cardiology eval for appropriateness of interventional therapy. 6. Hold Seroquel unless there is un-manageable psychomotor agitation. CCU Objective - Vital Signs / Intake & Output Vital Signs (Last 4 hours): Vital Signs Temp Pulse Resp BP Pulse Ox 01/20/18 15:31 88 22 119/49 L 100 01/20/18 15:22 100 01/20/18 15:13 88 16 126/71 100 01/20/18 14:52 126/71 01/20/18 14:26 100 01/20/18 12:27 98.1 F 94 H 22 134/57 L 100 Intake and Output (Last 8hrs): Intake & Output 01/20/18 01/20/18 01/20/18 06:59 14:59 22:59 Weight 140 lb - Medications Active Medications: Active Medications Generic Name Dose Route Start Last Admin Trade Name Freq PRN Reason Stop Dose Admin Aspirin 325 mg 01/20/18 15:45 Ecotrin PO DAILY FRITZ Carvedilol 3.125 mg 01/20/18 21:00 Coreg PO Q12 FRITZ Furosemide 60 mg 01/20/18 18:00 Lasix IV DAILY FRITZ Sodium Chloride 1,000 mls @ 80 mls/hr 01/20/18 14:30 01/20/18 14:38 Sodium Chloride 0.9% IV 01/21/18 01:23 80 mls/hr .[id number] STA Administration Vancomycin HCl 750 mg/ Sodium 250 mls @ 166.667 mls/hr 01/21/18 09:00 Chloride IVPB DAILY [facility] Protocol Piperacillin Sod/Tazobactam 100 mls @ 100 mls/hr 01/20/18 16:00 Sod 2.25 gm/ Sodium Chloride IVPB Q6 [facility] Protocol Nitroglycerin 2 ea 01/20/18 17:00 Nitro-Bid 2% Oint TOP QID [facility] - Patient Studies Lab Studies: Lab Studies 01/20/18 01/20/18 01/20/18 Range/Units 14:20 13:37 13:25 WBC (4.8-10.8) K/uL RBC (4.40-5.90) Mil/uL Hgb (12.0-18.0) g/dL Hct (35.0-51.0) % MCV (80.0-94.0) fl MCH (27.0-31.0) pg MCHC (33.0-37.0) g/dL RDW (11.5-14.5) % Plt Count (130-400) K/uL MPV (7.2-11.7) fl Neut % (Auto) (50.0-75.0) % Lymph % (Auto) (20.0-40.0) % [place] % (Auto) (0.0-10.0) % Eos % (Auto) (0.0-4.0) % Baso % (Auto) (0.0-2.0) % Neut # (Auto) (1.8-7.0) K/uL Lymph # (Auto) (1.0-4.3) K/uL [place] # (Auto) (0.0-0.8) K/uL Eos # (Auto) (0.0-0.7) K/uL Baso # (Auto) (0.0-0.2) K/uL Neutrophils % (Manual) (42-75) % Lymphocytes % (Manual) (20-50) % Monocytes % (Manual) (0-10) % Toxic Granulation Platelet Estimate (NORMAL) Anisocytosis (manual) PT (9.8-13.1) Seconds INR (0.9-1.2) APTT (25.6-37.1) Seconds D-Dimer, Quantitative (0-230) ng/mlDDU pO2 36 (30-55) mm/Hg VBG pH 7.37 (7.32-7.43) VBG pCO2 40 (40-60) mmHg VBG HCO3 22.5 mmol/L VBG Total CO2 24.3 (22-28) mmol/L VBG O2 Sat (Calc) 56.9 (40-65) % VBG Base Excess -2.0 L (0.0-2.0) mmol/L VBG Potassium 4.1 (3.6-5.2) mmol/L Glucose 109 (75-110) mg/dL Lactate 2.8 H (0.7-2.1) mmol/L FiO2 100.0 % Sodium 142.0 (132-148) mmol/l Potassium (3.6-5.0) MMOL/L Chloride 107.0 (98-107) mmol/L Carbon Dioxide (22-30) mmol/L Anion Gap (10-20) BUN (9-20) mg/dl Creatinine (0.8-1.5) mg/dl Est GFR ( Amer) Est GFR (Non-Af Amer) Random Glucose (75-110) mg/dL Calcium (8.4-10.2) mg/dL Total Bilirubin (0.2-1.3) mg/dl AST (17-59) U/L ALT (21-72) U/L Alkaline Phosphatase (38-126) U/L Troponin I (0.00-0.120) ng/mL NT-Pro-B Natriuret Pep (0-900) pg/ml Total Protein (6.3-8.2) G/DL Albumin (3.5-5.0) g/dL Globulin (2.2-3.9) gm/dL Albumin/Globulin Ratio (1.0-2.1) Venous Blood Potassium 4.1 (3.6-5.2) mmol/L Urine Color Yellow (YELLOW) Urine Clarity Slighty-cloudy (Clear) Urine pH 5.0 (5.0-8.0) Ur Specific [place] 1.021 (1.003-1.030) Urine Protein Negative (NEGATIVE) mg/dL Urine Glucose (UA) Neg (Normal) mg/dL Urine Ketones Negative (NEGATIVE) mg/dL Urine Blood Small (NEGATIVE) Urine Nitrate Negative (NEGATIVE) Urine Bilirubin Negative (NEGATIVE) Urine Urobilinogen 2.0 (0.2-1.0) mg/dL Ur Leukocyte Esterase Neg (Negative) Lloyd/uL Urine RBC (Auto) 19 H (0-3) /hpf Urine Microscopic WBC 2 (0-5) /hpf Urine Bacteria Rare (<OCC) Hyaline Casts 3-5 H (0-2) /hpf Influenza Typ A,B (EIA) Negative for flu a/b (NEGATIVE) 01/20/18 01/20/18 01/20/18 Range/Units 13:25 13:25 13:25 WBC 16.7 H D (4.8-10.8) K/uL RBC 5.35 (4.40-5.90) Mil/uL Hgb 17.4 (12.0-18.0) g/dL Hct 52.3 H (35.0-51.0) % MCV 97.7 H (80.0-94.0) fl MCH 32.5 H (27.0-31.0) pg MCHC 33.3 (33.0-37.0) g/dL RDW 15.4 H (11.5-14.5) % Plt Count 150 (130-400) K/uL MPV 10.2 (7.2-11.7) fl Neut % (Auto) 84.6 H (50.0-75.0) % Lymph % (Auto) 5.3 L (20.0-40.0) % [place] % (Auto) 10.0 (0.0-10.0) % Eos % (Auto) 0.0 (0.0-4.0) % Baso % (Auto) 0.1 (0.0-2.0) % Neut # (Auto) 14.2 H (1.8-7.0) K/uL Lymph # (Auto) 0.9 L (1.0-4.3) K/uL [place] # (Auto) 1.7 H (0.0-0.8) K/uL Eos # (Auto) 0.0 (0.0-0.7) K/uL Baso # (Auto) 0.0 (0.0-0.2) K/uL Neutrophils % (Manual) 79 H (42-75) % Lymphocytes % (Manual) 10 L (20-50) % Monocytes % (Manual) 11 H (0-10) % Toxic Granulation Present Platelet Estimate Normal (NORMAL) Anisocytosis (manual) Slight PT 16.1 H (9.8-13.1) Seconds INR 1.4 H (0.9-1.2) APTT 32.4 (25.6-37.1) Seconds D-Dimer, Quantitative 3346 H (0-230) ng/mlDDU pO2 (30-55) mm/Hg VBG pH (7.32-7.43) VBG pCO2 (40-60) mmHg VBG HCO3 mmol/L VBG Total CO2 (22-28) mmol/L VBG O2 Sat (Calc) (40-65) % VBG Base Excess (0.0-2.0) mmol/L VBG Potassium (3.6-5.2) mmol/L Glucose (75-110) mg/dL Lactate (0.7-2.1) mmol/L FiO2 % Sodium 146 (132-148) mmol/l Potassium 4.3 (3.6-5.0) MMOL/L Chloride 109 H (98-107) mmol/L Carbon Dioxide 19 L (22-30) mmol/L Anion Gap 22 H (10-20) BUN 58 H (9-20) mg/dl Creatinine 1.1 (0.8-1.5) mg/dl Est GFR ( Amer) > 60 Est GFR (Non-Af Amer) > 60 Random Glucose 110 (75-110) mg/dL Calcium 8.8 (8.4-10.2) mg/dL Total Bilirubin 2.0 H (0.2-1.3) mg/dl AST 50 (17-59) U/L ALT 74 H D (21-72) U/L Alkaline Phosphatase 157 H D (38-126) U/L Troponin I 0.1590 H* (0.00-0.120) ng/mL NT-Pro-B Natriuret Pep 12284 H (0-900) pg/ml Total Protein 6.6 (6.3-8.2) G/DL Albumin 3.3 L (3.5-5.0) g/dL Globulin 3.2 (2.2-3.9) gm/dL Albumin/Globulin Ratio 1.0 (1.0-2.1) Venous Blood Potassium (3.6-5.2) mmol/L Urine Color (YELLOW) Urine Clarity (Clear) Urine pH (5.0-8.0) Ur Specific [place] (1.003-1.030) Urine Protein (NEGATIVE) mg/dL Urine Glucose (UA) (Normal) mg/dL Urine Ketones (NEGATIVE) mg/dL Urine Blood (NEGATIVE) Urine Nitrate (NEGATIVE) Urine Bilirubin (NEGATIVE) Urine Urobilinogen (0.2-1.0) mg/dL Ur Leukocyte Esterase (Negative) Lloyd/uL Urine RBC (Auto) (0-3) /hpf Urine Microscopic WBC (0-5) /hpf Urine Bacteria (<OCC) Hyaline Casts (0-2) /hpf Influenza Typ A,B (EIA) (NEGATIVE) Laboratory Results - last 24 hr 01/20/18 01/20/18 01/20/18 13:25 13:25 13:25 WBC 16.7 H D RBC 5.35 Hgb 17.4 Hct 52.3 H MCV 97.7 H MCH 32.5 H MCHC 33.3 RDW 15.4 H Plt Count 150 MPV 10.2 Neut % (Auto) 84.6 H Lymph % (Auto) 5.3 L [place] % (Auto) 10.0 Eos % (Auto) 0.0 Baso % (Auto) 0.1 Neut # (Auto) 14.2 H Lymph # (Auto) 0.9 L [place] # (Auto) 1.7 H Eos # (Auto) 0.0 Baso # (Auto) 0.0 Neutrophils % (Manual) 79 H Lymphocytes % (Manual) 10 L Monocytes % (Manual) 11 H Toxic Granulation Present Platelet Estimate Normal Anisocytosis (manual) Slight PT 16.1 H INR 1.4 H APTT 32.4 D-Dimer, Quantitative 3346 H pO2 VBG pH VBG pCO2 VBG HCO3 VBG Total CO2 VBG O2 Sat (Calc) VBG Base Excess VBG Potassium Glucose Lactate FiO2 Sodium 146 Potassium 4.3 Chloride 109 H Carbon Dioxide 19 L Anion Gap 22 H BUN 58 H Creatinine 1.1 Est GFR ( Amer) > 60 Est GFR (Non-Af Amer) > 60 Random Glucose 110 Calcium 8.8 Total Bilirubin 2.0 H AST 50 ALT 74 H D Alkaline Phosphatase 157 H D Troponin I 0.1590 H* NT-Pro-B Natriuret Pep 77397 H Total Protein 6.6 Albumin 3.3 L Globulin 3.2 Albumin/Globulin Ratio 1.0 Venous Blood Potassium Urine Color Urine Clarity Urine pH Ur Specific [place] Urine Protein Urine Glucose (UA) Urine Ketones Urine Blood Urine Nitrate Urine Bilirubin Urine Urobilinogen Ur Leukocyte Esterase Urine RBC (Auto) Urine Microscopic WBC Urine Bacteria Hyaline Casts Influenza Typ A,B (EIA) 01/20/18 01/20/18 01/20/18 13:25 13:37 14:20 WBC RBC Hgb Hct MCV MCH MCHC RDW Plt Count MPV Neut % (Auto) Lymph % (Auto) [place] % (Auto) Eos % (Auto) Baso % (Auto) Neut # (Auto) Lymph # (Auto) [place] # (Auto) Eos # (Auto) Baso # (Auto) Neutrophils % (Manual) Lymphocytes % (Manual) Monocytes % (Manual) Toxic Granulation Platelet Estimate Anisocytosis (manual) PT INR APTT D-Dimer, Quantitative pO2 36 VBG pH 7.37 VBG pCO2 40 VBG HCO3 22.5 VBG Total CO2 24.3 VBG O2 Sat (Calc) 56.9 VBG Base Excess -2.0 L VBG Potassium 4.1 Glucose 109 Lactate 2.8 H FiO2 100.0 Sodium 142.0 Potassium Chloride 107.0 Carbon Dioxide Anion Gap BUN Creatinine Est GFR ( Amer) Est GFR (Non-Af Amer) Random Glucose Calcium Total Bilirubin AST ALT Alkaline Phosphatase Troponin I NT-Pro-B Natriuret Pep Total Protein Albumin Globulin Albumin/Globulin Ratio Venous Blood Potassium 4.1 Urine Color Yellow Urine Clarity Slighty-cloudy Urine pH 5.0 Ur Specific [place] 1.021 Urine Protein Negative Urine Glucose (UA) Neg Urine Ketones Negative Urine Blood Small Urine Nitrate Negative Urine Bilirubin Negative Urine Urobilinogen 2.0 Ur Leukocyte Esterase Neg Urine RBC (Auto) 19 H Urine Microscopic WBC 2 Urine Bacteria Rare Hyaline Casts 3-5 H Influenza Typ A,B (EIA) Negative for flu a/b Radiology Interpretations (Free Text): See Above EKG/Cardiology Studies: See Above
[2018-01-20 16:36] LABS: ABG ALLEN TEST YES; ARTERIAL BLOOD GAS HCO3 23.5 mmol/L (21-28); ARTERIAL BLOOD GAS PCO2 35 mm/Hg (35-45); ARTERIAL BLOOD GAS PH 7.41 (7.35-7.45); ARTERIAL BLOOD GAS PO2 120 mm/Hg (80-100); ARTERIAL BLOOD GAS TCO2 23.3 mmol/L (22-28)
[2018-01-20 17:22] LABS: BLOOD UREA NITROGEN 56 mg/dl (9-20); CALCIUM 8.1 mg/dL (8.4-10.2); GFR AFRICAN-AMERICAN > 60; GFR NON-AFRICAN AMERICAN > 60
[2018-01-20] MEDS: Nitroglycerin 2% Ointment Foilpak UD TOP SCH ×2 (17:49→22:32)
[2018-01-20] MEDS: Enoxaparin 60 mg Syringe SC SCH (17:49)
[2018-01-20] MEDS ORDERED: Pneumococcal 23-Valent Vaccine IM ONE (18:58)
[2018-01-20] MEDS: Aspirin 325 mg EC Tablets PO SCH (19:00)
[2018-01-21 05:08] LABS: HEMOGLOBIN 15.3 g/dL (12.0-18.0); MEAN CELL VOLUME 98.8 fl (80.0-94.0); MEAN CORPUSCULAR HEMOGLOBIN 32.4 pg (27.0-31.0); MEAN CORPUSCULAR HGB CONC 32.8 g/dL (33.0-37.0); RBC 4.71 Mil/uL (4.40-5.90); RED CELL DISTRIBUTION WIDTH 14.9 % (11.5-14.5); WHITE BLOOD COUNT 13.7 K/uL (4.8-10.8)
[2018-01-21 06:43] LABS: ALB/GLOB RATIO 0.9 (1.0-2.1); BLOOD UREA NITROGEN 53 mg/dl (9-20)
[2018-01-21 06:46] LABS: CALCIUM 8.3 mg/dL (8.4-10.2); GFR AFRICAN-AMERICAN > 60; GFR NON-AFRICAN AMERICAN > 60
[2018-01-21 06:47] LABS: ALBUMIN 2.8 g/dL (3.5-5.0); ALT/SGPT 65 U/L (21-72); AST/SGOT 66 U/L (17-59)
--- NOTE | 2018-01-21 07:35 | CP.CCUPN ---
CCU Subjective - Physician Review Subjective (Free Text): Still lethargic during my exam, and only partially opens eyes to verbal stimuli and name calling, breathing less labored and appears more natural, breathes with mouth open. Observed off ventimask and SPO2 95%. Hypotension noted overnight and remains so at 85-90 systolic, HR 81 sinus. Other VS and I/Os reviewed. Overall fluid balance since admission yesterday = negative 0.8 L. ROS: No other pertinent negs or positives on 10+ system review unobtainable, lethargic. Allergies: NKDA Outpt Meds: Mucomyst, Duoneb, Lipitor, Lasix, Ativan, Seroquel, Diovan. PMSFH: HTN, Deafness, Severe Aortic stenosis, h/o Falls. All other Nursing and physician documentation reviewed to date; no new pertinent info noted relevant to current medical problems. EXAM- HEENT: no icterus, no gaze preference, pupils equal and reactive, no icterus NECK: No JVD, supple, carotids equal upstroke bilat/no bruits CHEST: decreased BS bases, no wheezes audible HEART: regular tachy, distant, S1S2, no rubs. ABD: soft, mild distention, no tympany, no palp tenderness, BS hypoactive, liver edge nonpalpable. EXT: ++ edema, No peripheral cyanosis, but slight mottling of the feet noted, and nailbeds are dusky, no calf tenderness or palpable cords, distal pulses intact and symmetrical. NEURO: no focal motor deficits, withdraws to pain. Opens eyes to loud name calling. SKIN: no rashes, warm and dry. Old ecchymoses over RUE and RLE. LABS: WBC= 13.7 HGB= 15.3 PLTs= 135 K INR= 1.4 dDimer 3346 ABG: none Na= 148 K= 3.7 CL= 112 HCO3= 20 BUN/Cr= 53/1.1 BS= 95 Lactate= 1.7 now, 1.6 yesterday after initial diuresis Trops= 0.159, 0.157, 0.152 BNP= 56896 on admission CXR: improved aeration, bibasilar changes improved as well, less prominent than yesterday (my interp). IMPRESSION / MAJOR PROBLEMS NOW: 1. Acute Resp Insuff 2 bilateral Pneumonia versus compressive atelectasis with bilat pleural effusions ( as seen on last CT Chest 01/13) and Decompensated left CHF and h/o Pulm HTN 2. Azotemia / Dehydration; r/o CKD 2 Cardiomyopathy 3. Acute / Subacute NSTEMI 4. 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 5. Senile Dementia PLAN: 1. Empiric Abx coverage, Sputum C&S, legionella urine Ag. Procalcitonin drawn this AM and still pending, will stop Abx if level is normal. 2. Unacceptable lethargy for BiPAP, will place on HFNC support if he desats. Clarify any Advance Directives, otherwise may need MV support. 3. Consider repeat CT Chest for f/u from last study on 01/13 to clarify infiltrates vs atelectasis with effusion. 4. Topical Nitropaste, BBs, statin, LMWH at 1.0mg/kg dose added. Lasix prn; may need short term inotropic support. 5. Cardiology eval for appropriateness of interventional therapy. 6. Hold Seroquel unless there is un-manageable psychomotor agitation. CCU Objective - Vital Signs / Intake & Output Vital Signs (Last 4 hours): Vital Signs Temp Pulse Resp BP Pulse Ox 01/21/18 07:02 86/58 L 01/21/18 06:00 81 27 H 80/50 L 94 L 01/21/18 05:00 98/63 L 01/21/18 04:00 97.5 F L 95 H 28 H 106/69 100 Intake and Output (Last 8hrs): Intake & Output 01/20/18 01/21/18 01/21/18 22:59 06:59 14:59 Intake Total 400 300 Output Total 900 600 Balance -500 -300 Intake: IV 30 40 Intake, Piggyback 350 200 Oral 20 60 Output: Urine 900 600 Urethral (Child) 900 600 - Medications Active Medications: Active Medications Generic Name Dose Route Start Last Admin Trade Name Freq PRN Reason Stop Dose Admin Aspirin 325 mg 01/20/18 15:45 01/20/18 19:00 Ecotrin PO Not Given DAILY [facility] Atorvastatin Calcium 20 mg 01/21/18 09:00 Lipitor PO DAILY [facility] Carvedilol 3.125 mg 01/20/18 21:00 01/20/18 20:40 Coreg PO Not Given Q12 [facility] Enoxaparin Sodium 60 mg 01/20/18 16:15 01/20/18 17:49 Lovenox SC 60 mg DAILY [facility] Administration Protocol Vancomycin HCl 750 mg/ Sodium 250 mls @ 166.667 mls/hr 01/21/18 09:00 Chloride IVPB DAILY [facility] Protocol Piperacillin Sod/Tazobactam 100 mls @ 100 mls/hr 01/20/18 16:00 01/21/18 04: 11 Sod 2.25 gm/ Sodium Chloride IVPB 100 mls/hr Q6 [facility] Administration Protocol Nitroglycerin 1 inch 01/21/18 09:00 Nitro-Bid 2% Oint TOP BID [facility] - Patient Studies Lab Studies: Lab Studies 01/21/18 01/21/18 01/21/18 Range/Units 04:30 04:30 04:30 WBC 13.7 H (4.8-10.8) K/uL RBC 4.71 (4.40-5.90) Mil/uL Hgb 15.3 D (12.0-18.0) g/dL Hct 46.6 (35.0-51.0) % MCV 98.8 H (80.0-94.0) fl MCH 32.4 H (27.0-31.0) pg MCHC 32.8 L (33.0-37.0) g/dL RDW 14.9 H (11.5-14.5) % Plt Count 135 (130-400) K/uL MPV (7.2-11.7) fl Neut % (Auto) (50.0-75.0) % Lymph % (Auto) (20.0-40.0) % Wilson % (Auto) (0.0-10.0) % Eos % (Auto) (0.0-4.0) % Baso % (Auto) (0.0-2.0) % Neut # (Auto) (1.8-7.0) K/uL Lymph # (Auto) (1.0-4.3) K/uL Wilson # (Auto) (0.0-0.8) K/uL Eos # (Auto) (0.0-0.7) K/uL Baso # (Auto) (0.0-0.2) K/uL Neutrophils % (Manual) (42-75) % Lymphocytes % (Manual) (20-50) % Monocytes % (Manual) (0-10) % Toxic Granulation Platelet Estimate (NORMAL) Anisocytosis (manual) PT (9.8-13.1) Seconds INR (0.9-1.2) APTT (25.6-37.1) Seconds D-Dimer, Quantitative (0-230) ng/mlDDU pCO2 (35-45) mm/Hg pO2 (30-55) mm/Hg HCO3 (21-28) mmol/L ABG pH (7.35-7.45) ABG Total CO2 (22-28) mmol/L ABG O2 Saturation (95-98) % ABG Base Excess (-2.0-3.0) mmol/L Sukhjinder Test ABG Potassium (3.6-5.2) mmol/L VBG pH (7.32-7.43) VBG pCO2 (40-60) mmHg VBG HCO3 mmol/L VBG Total CO2 (22-28) mmol/L VBG O2 Sat (Calc) (40-65) % VBG Base Excess (0.0-2.0) mmol/L VBG Potassium (3.6-5.2) mmol/L A-a O2 Difference mm/Hg Glucose (75-110) mg/dL Lactate (0.7-2.1) mmol/L Vent Mode FiO2 % Sodium 148 (132-148) mmol/l Potassium 3.7 (3.6-5.0) MMOL/L Chloride 112 H (98-107) mmol/L Carbon Dioxide 20 L (22-30) mmol/L Anion Gap 20 (10-20) BUN 53 H (9-20) mg/dl Creatinine 1.1 (0.8-1.5) mg/dl Est GFR ( Amer) > 60 Est GFR (Non-Af Amer) > 60 Random Glucose 95 (75-110) mg/dL Lactic Acid 1.7 (0.7-2.1) MMOL/L Calcium 8.3 L (8.4-10.2) mg/dL Total Bilirubin 2.0 H (0.2-1.3) mg/dl AST 66 H D (17-59) U/L ALT 65 (21-72) U/L Alkaline Phosphatase 127 H (38-126) U/L Troponin I 0.1520 H* (0.00-0.120) ng/mL NT-Pro-B Natriuret Pep (0-900) pg/ml Total Protein 5.9 L (6.3-8.2) G/DL Albumin 2.8 L (3.5-5.0) g/dL Globulin 3.1 (2.2-3.9) gm/dL Albumin/Globulin Ratio 0.9 L (1.0-2.1) Arterial Blood Potassium (3.6-5.2) mmol/L Venous Blood Potassium (3.6-5.2) mmol/L Urine Color (YELLOW) Urine Clarity (Clear) Urine pH (5.0-8.0) Ur Specific [place] (1.003-1.030) Urine Protein (NEGATIVE) mg/dL Urine Glucose (UA) (Normal) mg/dL Urine Ketones (NEGATIVE) mg/dL Urine Blood (NEGATIVE) Urine Nitrate (NEGATIVE) Urine Bilirubin (NEGATIVE) Urine Urobilinogen (0.2-1.0) mg/dL Ur Leukocyte Esterase (Negative) Lloyd/uL Urine RBC (Auto) (0-3) /hpf Urine Microscopic WBC (0-5) /hpf Urine Bacteria (<OCC) Hyaline Casts (0-2) /hpf Influenza Typ A,B (EIA) (NEGATIVE) 01/20/18 01/20/18 01/20/18 Range/Units 20:15 16:52 16:31 WBC (4.8-10.8) K/uL RBC (4.40-5.90) Mil/uL Hgb (12.0-18.0) g/dL Hct (35.0-51.0) % MCV (80.0-94.0) fl MCH (27.0-31.0) pg MCHC (33.0-37.0) g/dL RDW (11.5-14.5) % Plt Count (130-400) K/uL MPV (7.2-11.7) fl Neut % (Auto) (50.0-75.0) % Lymph % (Auto) (20.0-40.0) % Wilson % (Auto) (0.0-10.0) % Eos % (Auto) (0.0-4.0) % Baso % (Auto) (0.0-2.0) % Neut # (Auto) (1.8-7.0) K/uL Lymph # (Auto) (1.0-4.3) K/uL Wilson # (Auto) (0.0-0.8) K/uL Eos # (Auto) (0.0-0.7) K/uL Baso # (Auto) (0.0-0.2) K/uL Neutrophils % (Manual) (42-75) % Lymphocytes % (Manual) (20-50) % Monocytes % (Manual) (0-10) % Toxic Granulation Platelet Estimate (NORMAL) Anisocytosis (manual) PT (9.8-13.1) Seconds INR (0.9-1.2) APTT (25.6-37.1) Seconds D-Dimer, Quantitative (0-230) ng/mlDDU pCO2 35 (35-45) mm/Hg pO2 120 H (30-55) mm/Hg HCO3 23.5 (21-28) mmol/L ABG pH 7.41 (7.35-7.45) ABG Total CO2 23.3 (22-28) mmol/L ABG O2 Saturation 100.0 H (95-98) % ABG Base Excess -1.9 (-2.0-3.0) mmol/L Sukhjinder Test Yes ABG Potassium 3.9 (3.6-5.2) mmol/L VBG pH (7.32-7.43) VBG pCO2 (40-60) mmHg VBG HCO3 mmol/L VBG Total CO2 (22-28) mmol/L VBG O2 Sat (Calc) (40-65) % VBG Base Excess (0.0-2.0) mmol/L VBG Potassium (3.6-5.2) mmol/L A-a O2 Difference 193.0 mm/Hg Glucose 121 H (75-110) mg/dL Lactate 1.6 (0.7-2.1) mmol/L Vent Mode Venti mask FiO2 50.0 % Sodium 145 141.0 (132-148) mmol/l Potassium 3.9 (3.6-5.0) MMOL/L Chloride 110 H 111.0 H (98-107) mmol/L Carbon Dioxide 19 L (22-30) mmol/L Anion Gap 20 (10-20) BUN 56 H (9-20) mg/dl Creatinine 1.0 (0.8-1.5) mg/dl Est GFR ( Amer) > 60 Est GFR (Non-Af Amer) > 60 Random Glucose 115 H (75-110) mg/dL Lactic Acid (0.7-2.1) MMOL/L Calcium 8.1 L (8.4-10.2) mg/dL Total Bilirubin (0.2-1.3) mg/dl AST (17-59) U/L ALT (21-72) U/L Alkaline Phosphatase (38-126) U/L Troponin I 0.1570 H* (0.00-0.120) ng/mL NT-Pro-B Natriuret Pep (0-900) pg/ml Total Protein (6.3-8.2) G/DL Albumin (3.5-5.0) g/dL Globulin (2.2-3.9) gm/dL Albumin/Globulin Ratio (1.0-2.1) Arterial Blood Potassium 3.9 (3.6-5.2) mmol/L Venous Blood Potassium (3.6-5.2) mmol/L Urine Color (YELLOW) Urine Clarity (Clear) Urine pH (5.0-8.0) Ur Specific [place] (1.003-1.030) Urine Protein (NEGATIVE) mg/dL Urine Glucose (UA) (Normal) mg/dL Urine Ketones (NEGATIVE) mg/dL Urine Blood (NEGATIVE) Urine Nitrate (NEGATIVE) Urine Bilirubin (NEGATIVE) Urine Urobilinogen (0.2-1.0) mg/dL Ur Leukocyte Esterase (Negative) Lloyd/uL Urine RBC (Auto) (0-3) /hpf Urine Microscopic WBC (0-5) /hpf Urine Bacteria (<OCC) Hyaline Casts (0-2) /hpf Influenza Typ A,B (EIA) (NEGATIVE) 01/20/18 01/20/18 01/20/18 Range/Units 14:20 13:37 13:25 WBC (4.8-10.8) K/uL RBC (4.40-5.90) Mil/uL Hgb (12.0-18.0) g/dL Hct (35.0-51.0) % MCV (80.0-94.0) fl MCH (27.0-31.0) pg MCHC (33.0-37.0) g/dL RDW (11.5-14.5) % Plt Count (130-400) K/uL MPV (7.2-11.7) fl Neut % (Auto) (50.0-75.0) % Lymph % (Auto) (20.0-40.0) % Wilson % (Auto) (0.0-10.0) % Eos % (Auto) (0.0-4.0) % Baso % (Auto) (0.0-2.0) % Neut # (Auto) (1.8-7.0) K/uL Lymph # (Auto) (1.0-4.3) K/uL Wilson # (Auto) (0.0-0.8) K/uL Eos # (Auto) (0.0-0.7) K/uL Baso # (Auto) (0.0-0.2) K/uL Neutrophils % (Manual) (42-75) % Lymphocytes % (Manual) (20-50) % Monocytes % (Manual) (0-10) % Toxic Granulation Platelet Estimate (NORMAL) Anisocytosis (manual) PT (9.8-13.1) Seconds INR (0.9-1.2) APTT (25.6-37.1) Seconds D-Dimer, Quantitative (0-230) ng/mlDDU pCO2 (35-45) mm/Hg pO2 36 (30-55) mm/Hg HCO3 (21-28) mmol/L ABG pH (7.35-7.45) ABG Total CO2 (22-28) mmol/L ABG O2 Saturation (95-98) % ABG Base Excess (-2.0-3.0) mmol/L Sukhjinder Test ABG Potassium (3.6-5.2) mmol/L VBG pH 7.37 (7.32-7.43) VBG pCO2 40 (40-60) mmHg VBG HCO3 22.5 mmol/L VBG Total CO2 24.3 (22-28) mmol/L VBG O2 Sat (Calc) 56.9 (40-65) % VBG Base Excess -2.0 L (0.0-2.0) mmol/L VBG Potassium 4.1 (3.6-5.2) mmol/L A-a O2 Difference mm/Hg Glucose 109 (75-110) mg/dL Lactate 2.8 H (0.7-2.1) mmol/L Vent Mode FiO2 100.0 % Sodium 142.0 (132-148) mmol/l Potassium (3.6-5.0) MMOL/L Chloride 107.0 (98-107) mmol/L Carbon Dioxide (22-30) mmol/L Anion Gap (10-20) BUN (9-20) mg/dl Creatinine (0.8-1.5) mg/dl Est GFR ( Amer) Est GFR (Non-Af Amer) Random Glucose (75-110) mg/dL Lactic Acid (0.7-2.1) MMOL/L Calcium (8.4-10.2) mg/dL Total Bilirubin (0.2-1.3) mg/dl AST (17-59) U/L ALT (21-72) U/L Alkaline Phosphatase (38-126) U/L Troponin I (0.00-0.120) ng/mL NT-Pro-B Natriuret Pep (0-900) pg/ml Total Protein (6.3-8.2) G/DL Albumin (3.5-5.0) g/dL Globulin (2.2-3.9) gm/dL Albumin/Globulin Ratio (1.0-2.1) Arterial Blood Potassium (3.6-5.2) mmol/L Venous Blood Potassium 4.1 (3.6-5.2) mmol/L Urine Color Yellow (YELLOW) Urine Clarity Slighty-cloudy (Clear) Urine pH 5.0 (5.0-8.0) Ur Specific [place] 1.021 (1.003-1.030) Urine Protein Negative (NEGATIVE) mg/dL Urine Glucose (UA) Neg (Normal) mg/dL Urine Ketones Negative (NEGATIVE) mg/dL Urine Blood Small (NEGATIVE) Urine Nitrate Negative (NEGATIVE) Urine Bilirubin Negative (NEGATIVE) Urine Urobilinogen 2.0 (0.2-1.0) mg/dL Ur Leukocyte Esterase Neg (Negative) Lloyd/uL Urine RBC (Auto) 19 H (0-3) /hpf Urine Microscopic WBC 2 (0-5) /hpf Urine Bacteria Rare (<OCC) Hyaline Casts 3-5 H (0-2) /hpf Influenza Typ A,B (EIA) Negative for flu a/b (NEGATIVE) 01/20/18 01/20/18 01/20/18 Range/Units 13:25 13:25 13:25 WBC 16.7 H D (4.8-10.8) K/uL RBC 5.35 (4.40-5.90) Mil/uL Hgb 17.4 (12.0-18.0) g/dL Hct 52.3 H (35.0-51.0) % MCV 97.7 H (80.0-94.0) fl MCH 32.5 H (27.0-31.0) pg MCHC 33.3 (33.0-37.0) g/dL RDW 15.4 H (11.5-14.5) % Plt Count 150 (130-400) K/uL MPV 10.2 (7.2-11.7) fl Neut % (Auto) 84.6 H (50.0-75.0) % Lymph % (Auto) 5.3 L (20.0-40.0) % Wilson % (Auto) 10.0 (0.0-10.0) % Eos % (Auto) 0.0 (0.0-4.0) % Baso % (Auto) 0.1 (0.0-2.0) % Neut # (Auto) 14.2 H (1.8-7.0) K/uL Lymph # (Auto) 0.9 L (1.0-4.3) K/uL Wilson # (Auto) 1.7 H (0.0-0.8) K/uL Eos # (Auto) 0.0 (0.0-0.7) K/uL Baso # (Auto) 0.0 (0.0-0.2) K/uL Neutrophils % (Manual) 79 H (42-75) % Lymphocytes % (Manual) 10 L (20-50) % Monocytes % (Manual) 11 H (0-10) % Toxic Granulation Present Platelet Estimate Normal (NORMAL) Anisocytosis (manual) Slight PT 16.1 H (9.8-13.1) Seconds INR 1.4 H (0.9-1.2) APTT 32.4 (25.6-37.1) Seconds D-Dimer, Quantitative 3346 H (0-230) ng/mlDDU pCO2 (35-45) mm/Hg pO2 (30-55) mm/Hg HCO3 (21-28) mmol/L ABG pH (7.35-7.45) ABG Total CO2 (22-28) mmol/L ABG O2 Saturation (95-98) % ABG Base Excess (-2.0-3.0) mmol/L Sukhjinder Test ABG Potassium (3.6-5.2) mmol/L VBG pH (7.32-7.43) VBG pCO2 (40-60) mmHg VBG HCO3 mmol/L VBG Total CO2 (22-28) mmol/L VBG O2 Sat (Calc) (40-65) % VBG Base Excess (0.0-2.0) mmol/L VBG Potassium (3.6-5.2) mmol/L A-a O2 Difference mm/Hg Glucose (75-110) mg/dL Lactate (0.7-2.1) mmol/L Vent Mode FiO2 % Sodium 146 (132-148) mmol/l Potassium 4.3 (3.6-5.0) MMOL/L Chloride 109 H (98-107) mmol/L Carbon Dioxide 19 L (22-30) mmol/L Anion Gap 22 H (10-20) BUN 58 H (9-20) mg/dl Creatinine 1.1 (0.8-1.5) mg/dl Est GFR ( Amer) > 60 Est GFR (Non-Af Amer) > 60 Random Glucose 110 (75-110) mg/dL Lactic Acid (0.7-2.1) MMOL/L Calcium 8.8 (8.4-10.2) mg/dL Total Bilirubin 2.0 H (0.2-1.3) mg/dl AST 50 (17-59) U/L ALT 74 H D (21-72) U/L Alkaline Phosphatase 157 H D (38-126) U/L Troponin I 0.1590 H* (0.00-0.120) ng/mL NT-Pro-B Natriuret Pep 44971 H (0-900) pg/ml Total Protein 6.6 (6.3-8.2) G/DL Albumin 3.3 L (3.5-5.0) g/dL Globulin 3.2 (2.2-3.9) gm/dL Albumin/Globulin Ratio 1.0 (1.0-2.1) Arterial Blood Potassium (3.6-5.2) mmol/L Venous Blood Potassium (3.6-5.2) mmol/L Urine Color (YELLOW) Urine Clarity (Clear) Urine pH (5.0-8.0) Ur Specific [place] (1.003-1.030) Urine Protein (NEGATIVE) mg/dL Urine Glucose (UA) (Normal) mg/dL Urine Ketones (NEGATIVE) mg/dL Urine Blood (NEGATIVE) Urine Nitrate (NEGATIVE) Urine Bilirubin (NEGATIVE) Urine Urobilinogen (0.2-1.0) mg/dL Ur Leukocyte Esterase (Negative) Lloyd/uL Urine RBC (Auto) (0-3) /hpf Urine Microscopic WBC (0-5) /hpf Urine Bacteria (<OCC) Hyaline Casts (0-2) /hpf Influenza Typ A,B (EIA) (NEGATIVE) Laboratory Results - last 24 hr 01/20/18 01/20/18 01/20/18 13:25 13:25 13:25 WBC 16.7 H D RBC 5.35 Hgb 17.4 Hct 52.3 H MCV 97.7 H MCH 32.5 H MCHC 33.3 RDW 15.4 H Plt Count 150 MPV 10.2 Neut % (Auto) 84.6 H Lymph % (Auto) 5.3 L Wilson % (Auto) 10.0 Eos % (Auto) 0.0 Baso % (Auto) 0.1 Neut # (Auto) 14.2 H Lymph # (Auto) 0.9 L Wilson # (Auto) 1.7 H Eos # (Auto) 0.0 Baso # (Auto) 0.0 Neutrophils % (Manual) 79 H Lymphocytes % (Manual) 10 L Monocytes % (Manual) 11 H Toxic Granulation Present Platelet Estimate Normal Anisocytosis (manual) Slight PT 16.1 H INR 1.4 H APTT 32.4 D-Dimer, Quantitative 3346 H pCO2 pO2 HCO3 ABG pH ABG Total CO2 ABG O2 Saturation ABG Base Excess Sukhjinder Test ABG Potassium VBG pH VBG pCO2 VBG HCO3 VBG Total CO2 VBG O2 Sat (Calc) VBG Base Excess VBG Potassium A-a O2 Difference Glucose Lactate Vent Mode FiO2 Sodium 146 Potassium 4.3 Chloride 109 H Carbon Dioxide 19 L Anion Gap 22 H BUN 58 H Creatinine 1.1 Est GFR ( Amer) > 60 Est GFR (Non-Af Amer) > 60 Random Glucose 110 Lactic Acid Calcium 8.8 Total Bilirubin 2.0 H AST 50 ALT 74 H D Alkaline Phosphatase 157 H D Troponin I 0.1590 H* NT-Pro-B Natriuret Pep 41699 H Total Protein 6.6 Albumin 3.3 L Globulin 3.2 Albumin/Globulin Ratio 1.0 Arterial Blood Potassium Venous Blood Potassium Urine Color Urine Clarity Urine pH Ur Specific [place] Urine Protein Urine Glucose (UA) Urine Ketones Urine Blood Urine Nitrate Urine Bilirubin Urine Urobilinogen Ur Leukocyte Esterase Urine RBC (Auto) Urine Microscopic WBC Urine Bacteria Hyaline Casts Influenza Typ A,B (EIA) 01/20/18 01/20/18 01/20/18 13:25 13:37 14:20 WBC RBC Hgb Hct MCV MCH MCHC RDW Plt Count MPV Neut % (Auto) Lymph % (Auto) Wilson % (Auto) Eos % (Auto) Baso % (Auto) Neut # (Auto) Lymph # (Auto) Wilson # (Auto) Eos # (Auto) Baso # (Auto) Neutrophils % (Manual) Lymphocytes % (Manual) Monocytes % (Manual) Toxic Granulation Platelet Estimate Anisocytosis (manual) PT INR APTT D-Dimer, Quantitative pCO2 pO2 36 HCO3 ABG pH ABG Total CO2 ABG O2 Saturation ABG Base Excess Sukhjinder Test ABG Potassium VBG pH 7.37 VBG pCO2 40 VBG HCO3 22.5 VBG Total CO2 24.3 VBG O2 Sat (Calc) 56.9 VBG Base Excess -2.0 L VBG Potassium 4.1 A-a O2 Difference Glucose 109 Lactate 2.8 H Vent Mode FiO2 100.0 Sodium 142.0 Potassium Chloride 107.0 Carbon Dioxide Anion Gap BUN Creatinine Est GFR ( Amer) Est GFR (Non-Af Amer) Random Glucose Lactic Acid Calcium Total Bilirubin AST ALT Alkaline Phosphatase Troponin I NT-Pro-B Natriuret Pep Total Protein Albumin Globulin Albumin/Globulin Ratio Arterial Blood Potassium Venous Blood Potassium 4.1 Urine Color Yellow Urine Clarity Slighty-cloudy Urine pH 5.0 Ur Specific [place] 1.021 Urine Protein Negative Urine Glucose (UA) Neg Urine Ketones Negative Urine Blood Small Urine Nitrate Negative Urine Bilirubin Negative Urine Urobilinogen 2.0 Ur Leukocyte Esterase Neg Urine RBC (Auto) 19 H Urine Microscopic WBC 2 Urine Bacteria Rare Hyaline Casts 3-5 H Influenza Typ A,B (EIA) Negative for flu a/b 01/20/18 01/20/18 01/20/18 16:31 16:52 20:15 WBC RBC Hgb Hct MCV MCH MCHC RDW Plt Count MPV Neut % (Auto) Lymph % (Auto) Wilson % (Auto) Eos % (Auto) Baso % (Auto) Neut # (Auto) Lymph # (Auto) Wilson # (Auto) Eos # (Auto) Baso # (Auto) Neutrophils % (Manual) Lymphocytes % (Manual) Monocytes % (Manual) Toxic Granulation Platelet Estimate Anisocytosis (manual) PT INR APTT D-Dimer, Quantitative pCO2 35 pO2 120 H HCO3 23.5 ABG pH 7.41 ABG Total CO2 23.3 ABG O2 Saturation 100.0 H ABG Base Excess -1.9 Sukhjinder Test Yes ABG Potassium 3.9 VBG pH VBG pCO2 VBG HCO3 VBG Total CO2 VBG O2 Sat (Calc) VBG Base Excess VBG Potassium A-a O2 Difference 193.0 Glucose 121 H Lactate 1.6 Vent Mode Venti mask FiO2 50.0 Sodium 141.0 145 Potassium 3.9 Chloride 111.0 H 110 H Carbon Dioxide 19 L Anion Gap 20 BUN 56 H Creatinine 1.0 Est GFR ( Amer) > 60 Est GFR (Non-Af Amer) > 60 Random Glucose 115 H Lactic Acid Calcium 8.1 L Total Bilirubin AST ALT Alkaline Phosphatase Troponin I 0.1570 H* NT-Pro-B Natriuret Pep Total Protein Albumin Globulin Albumin/Globulin Ratio Arterial Blood Potassium 3.9 Venous Blood Potassium Urine Color Urine Clarity Urine pH Ur Specific [place] Urine Protein Urine Glucose (UA) Urine Ketones Urine Blood Urine Nitrate Urine Bilirubin Urine Urobilinogen Ur Leukocyte Esterase Urine RBC (Auto) Urine Microscopic WBC Urine Bacteria Hyaline Casts Influenza Typ A,B (EIA) 01/21/18 01/21/18 01/21/18 04:30 04:30 04:30 WBC 13.7 H RBC 4.71 Hgb 15.3 D Hct 46.6 MCV 98.8 H MCH 32.4 H MCHC 32.8 L RDW 14.9 H Plt Count 135 MPV Neut % (Auto) Lymph % (Auto) Wilson % (Auto) Eos % (Auto) Baso % (Auto) Neut # (Auto) Lymph # (Auto) Wilson # (Auto) Eos # (Auto) Baso # (Auto) Neutrophils % (Manual) Lymphocytes % (Manual) Monocytes % (Manual) Toxic Granulation Platelet Estimate Anisocytosis (manual) PT INR APTT D-Dimer, Quantitative pCO2 pO2 HCO3 ABG pH ABG Total CO2 ABG O2 Saturation ABG Base Excess Sukhjinder Test ABG Potassium VBG pH VBG pCO2 VBG HCO3 VBG Total CO2 VBG O2 Sat (Calc) VBG Base Excess VBG Potassium A-a O2 Difference Glucose Lactate Vent Mode FiO2 Sodium 148 Potassium 3.7 Chloride 112 H Carbon Dioxide 20 L Anion Gap 20 BUN 53 H Creatinine 1.1 Est GFR ( Amer) > 60 Est GFR (Non-Af Amer) > 60 Random Glucose 95 Lactic Acid 1.7 Calcium 8.3 L Total Bilirubin 2.0 H AST 66 H D ALT 65 Alkaline Phosphatase 127 H Troponin I 0.1520 H* NT-Pro-B Natriuret Pep Total Protein 5.9 L Albumin 2.8 L Globulin 3.1 Albumin/Globulin Ratio 0.9 L Arterial Blood Potassium Venous Blood Potassium Urine Color Urine Clarity Urine pH Ur Specific [place] Urine Protein Urine Glucose (UA) Urine Ketones Urine Blood Urine Nitrate Urine Bilirubin Urine Urobilinogen Ur Leukocyte Esterase Urine RBC (Auto) Urine Microscopic WBC Urine Bacteria Hyaline Casts Influenza Typ A,B (EIA) EKG/Cardiology Studies: Cardiology / EKG Studies 01/20/18 12:50 ELECTROCARDIOGRAM Stat Comment: Mode Of Transportation: Reason For Exam: weakness, dyspnea 01/21/18 09:00 EKG [ELECTROCARDIOGRAM] DAILY Comment: Mode Of Transportation: Reason For Exam: r/o AMI Critical Care Progress Note - Nutrition Nutrition: Nutrition Category Date Time Status Heart Healthy Diet [DIET] Diets 01/20/18 Dinner Active
--- NOTE | 2018-01-21 08:29 | CP.PCM.CON ---
History of Present Illness - History of Present Illness History of Present Illness: This 87-year-old man is known to me from his recent hospitalization following a fall in which he severely injured his chest and had multiple rib fractures. The patient at that time was found to have severe aortic stenosis and the issue off surgical intervention in this man with advanced dementia was discussed with his niece who had firmly indicated that she did not want any surgical intervention. At that time his prognosis was explained to her. The patient has come back to the hospital in pulmonary edema and with marked leukocytosis suggestive of a pulmonary infection which is being treated. Overnight the patient has diuresed and his chest x-ray appears much improved in the meantime his systolic blood pressure had dropped down to 80 mmHg. Physical examination shows and exhausted elderly man was easily arousable but appears confused about his surroundings. Afebrile. Breeds at 16-18 breaths per minute and has heart rate of 74 bpm (sinus rhythm) with frequent premature ventricular beats. His blood pressure was 90/60 mmHg. A Child catheter was in place and was draining light colored urine. His jugular venous pressure was not elevated. There was no edema over his lower extremities. The pedal pulses were extremely feeble. Extremities were warm and nailbeds were pink. There was no central or peripheral cyanosis. The apex was not palpable a large ecchymotic area was evident on the chest. The first heart sound was normal the second heart sound was absent. A ejection systolic murmur in the aortic area was audible conducted to the base of the neck. Inspiratory effort was poor. Few rales were audible at both bases. Abdomen was soft and liver and spleen are not palpable. His electrocardiogram showed sinus rhythm with a right bundle branch block and a left anterior hemiblock. There were inverted T waves in leads V2 V3 and V4. No fresh Q waves were evident on the electrocardiogram. A recent echocardiogram of January 15 showed severe aortic stenosis with a depressed left ventricular systolic function and a calculated aortic valve area off 0.5 cm. The chest x-ray at admission showed evidence of pulmonary edema. This morning following diuresis the pulmonary edema appears to have resolved. His lab data showed a leukocytosis of 16,700 at admission which is now at 13, 700. His hemoglobin and hematocrit were noted. His BUN and creatinine at admission with 56 and 1 mg percent which this morning are 53 and 1.1 mg percent his serum potassium was normal his blood gases on an FiO2 of 50% showed a pH of 7.4 with adequate oxygenation. Serum lactate level was 1.6 at admission. His troponin level was mildly elevated. Impression: Pulmonary edema in presence of critical aortic stenosis with possible pneumonia. The occurrence of severe congestive cardiac failure in presence of aortic stenosis has an extremely poor prognostic implication. This has been discussed with the patient's family and they have indicated that they do not want to undertake aggressive measure to correct aortic stenosis, in light of his advanced dementia and a poor quality of life at this point. Elevated troponin most likely represents acute left ventricular failure. The patient should be gradually diuresed keeping in mind critical aortic stenosis. His long-term prognosis is poor. Past Patient History - Past Medical History & Family History Past Medical History?: Yes - Past Social History Smoking Status: Never Smoked - CARDIAC Hx Hypercholesterolemia: Yes Hx Hypertension: Yes - PULMONARY Hx Asthma: No - NEUROLOGICAL Hx Neurological Disorder: No - HEENT Hx HEENT Problems: Yes Hx Deafness: Yes - RENAL Hx Chronic Kidney Disease: No Hx Kidney Stones: No - ENDOCRINE/METABOLIC Hx Hyperthyroidism: No Hx Hypothyroidism: No - HEMATOLOGICAL/ONCOLOGICAL Hx AIDS: No Hx Human Immunodeficiency Virus (HIV): No - INTEGUMENTARY Hx Dermatological Problems: No - MUSCULOSKELETAL/RHEUMATOLOGICAL Hx Falls: Yes - GASTROINTESTINAL Hx Gastrointestinal Disorders: Yes Hx Gastroesophageal Reflux: Yes - GENITOURINARY/GYNECOLOGICAL Hx Genitourinary Disorders: No - PSYCHIATRIC Hx Substance Use: No - SURGICAL HISTORY Hx Surgeries: Yes Other/Comment: prostate sx?/rectal sx 1969 - ANESTHESIA Hx Anesthesia: Yes Hx Anesthesia Reactions: No Hx Malignant Hyperthermia: No Meds Allergies/Adverse Reactions: Allergies Allergy/AdvReac Type Severity Reaction Status Date / Time No Known Allergies Allergy Verified 01/13/18 18:54 - Medications Medications: Current Medications Aspirin (Ecotrin) 325 mg PO DAILY [facility] Last Admin: 01/20/18 19:00 Dose: Not Given Atorvastatin Calcium (Lipitor) 20 mg PO DAILY [facility] Enoxaparin Sodium (Lovenox) 60 mg SC DAILY [facility] PRN Reason: Protocol Last Admin: 01/20/18 17:49 Dose: 60 mg Vancomycin HCl 750 mg/ Sodium (Chloride) 250 mls @ 166.667 mls/hr IVPB DAILY [facility] PRN Reason: Protocol Piperacillin Sod/Tazobactam (Sod 2.25 gm/ Sodium Chloride) 100 mls @ 100 mls/ hr IVPB Q6 [facility] PRN Reason: Protocol Last Admin: 01/21/18 04:11 Dose: 100 mls/hr Nitroglycerin (Nitro-Bid 2% Oint) 1 ea TOP BID [facility] Results - Vital Signs Recent Vital Signs: Last Vital Signs Temp 97.7 F 01/21/18 08:00 Pulse 74 01/21/18 08:00 Resp 21 01/21/18 08:00 BP 89/54 L 01/21/18 08:00 Pulse Ox 99 01/21/18 08:00 - Labs Result Diagrams: 01/21/18 04:30 01/21/18 04:30 Labs: Laboratory Results - last 24 hr 01/20/18 01/20/18 01/20/18 13:25 13:25 13:25 WBC 16.7 H D RBC 5.35 Hgb 17.4 Hct 52.3 H MCV 97.7 H MCH 32.5 H MCHC 33.3 RDW 15.4 H Plt Count 150 MPV 10.2 Neut % (Auto) 84.6 H Lymph % (Auto) 5.3 L [place] % (Auto) 10.0 Eos % (Auto) 0.0 Baso % (Auto) 0.1 Neut # (Auto) 14.2 H Lymph # (Auto) 0.9 L Vernon # (Auto) 1.7 H Eos # (Auto) 0.0 Baso # (Auto) 0.0 Neutrophils % (Manual) 79 H Lymphocytes % (Manual) 10 L Monocytes % (Manual) 11 H Toxic Granulation Present Platelet Estimate Normal Anisocytosis (manual) Slight PT 16.1 H INR 1.4 H APTT 32.4 D-Dimer, Quantitative 3346 H pCO2 pO2 HCO3 ABG pH ABG Total CO2 ABG O2 Saturation ABG Base Excess Sukhjinder Test ABG Potassium VBG pH VBG pCO2 VBG HCO3 VBG Total CO2 VBG O2 Sat (Calc) VBG Base Excess VBG Potassium A-a O2 Difference Glucose Lactate Vent Mode FiO2 Sodium 146 Potassium 4.3 Chloride 109 H Carbon Dioxide 19 L Anion Gap 22 H BUN 58 H Creatinine 1.1 Est GFR ( Amer) > 60 Est GFR (Non-Af Amer) > 60 Random Glucose 110 Lactic Acid Calcium 8.8 Total Bilirubin 2.0 H AST 50 ALT 74 H D Alkaline Phosphatase 157 H D Troponin I 0.1590 H* NT-Pro-B Natriuret Pep 93233 H Total Protein 6.6 Albumin 3.3 L Globulin 3.2 Albumin/Globulin Ratio 1.0 Arterial Blood Potassium Venous Blood Potassium Urine Color Urine Clarity Urine pH Ur Specific [place] Urine Protein Urine Glucose (UA) Urine Ketones Urine Blood Urine Nitrate Urine Bilirubin Urine Urobilinogen Ur Leukocyte Esterase Urine RBC (Auto) Urine Microscopic WBC Urine Bacteria Hyaline Casts Influenza Typ A,B (EIA) 01/20/18 01/20/18 01/20/18 13:25 13:37 14:20 WBC RBC Hgb Hct MCV MCH MCHC RDW Plt Count MPV Neut % (Auto) Lymph % (Auto) Vernon % (Auto) Eos % (Auto) Baso % (Auto) Neut # (Auto) Lymph # (Auto) Vernon # (Auto) Eos # (Auto) Baso # (Auto) Neutrophils % (Manual) Lymphocytes % (Manual) Monocytes % (Manual) Toxic Granulation Platelet Estimate Anisocytosis (manual) PT INR APTT D-Dimer, Quantitative pCO2 pO2 36 HCO3 ABG pH ABG Total CO2 ABG O2 Saturation ABG Base Excess Sukhjnider Test ABG Potassium VBG pH 7.37 VBG pCO2 40 VBG HCO3 22.5 VBG Total CO2 24.3 VBG O2 Sat (Calc) 56.9 VBG Base Excess -2.0 L VBG Potassium 4.1 A-a O2 Difference Glucose 109 Lactate 2.8 H Vent Mode FiO2 100.0 Sodium 142.0 Potassium Chloride 107.0 Carbon Dioxide Anion Gap BUN Creatinine Est GFR ( Amer) Est GFR (Non-Af Amer) Random Glucose Lactic Acid Calcium Total Bilirubin AST ALT Alkaline Phosphatase Troponin I NT-Pro-B Natriuret Pep Total Protein Albumin Globulin Albumin/Globulin Ratio Arterial Blood Potassium Venous Blood Potassium 4.1 Urine Color Yellow Urine Clarity Slighty-cloudy Urine pH 5.0 Ur Specific [place] 1.021 Urine Protein Negative Urine Glucose (UA) Neg Urine Ketones Negative Urine Blood Small Urine Nitrate Negative Urine Bilirubin Negative Urine Urobilinogen 2.0 Ur Leukocyte Esterase Neg Urine RBC (Auto) 19 H Urine Microscopic WBC 2 Urine Bacteria Rare Hyaline Casts 3-5 H Influenza Typ A,B (EIA) Negative for flu a/b 01/20/18 01/20/18 01/20/18 16:31 16:52 20:15 WBC RBC Hgb Hct MCV MCH MCHC RDW Plt Count MPV Neut % (Auto) Lymph % (Auto) Vernon % (Auto) Eos % (Auto) Baso % (Auto) Neut # (Auto) Lymph # (Auto) Vernon # (Auto) Eos # (Auto) Baso # (Auto) Neutrophils % (Manual) Lymphocytes % (Manual) Monocytes % (Manual) Toxic Granulation Platelet Estimate Anisocytosis (manual) PT INR APTT D-Dimer, Quantitative pCO2 35 pO2 120 H HCO3 23.5 ABG pH 7.41 ABG Total CO2 23.3 ABG O2 Saturation 100.0 H ABG Base Excess -1.9 Sukhjinder Test Yes ABG Potassium 3.9 VBG pH VBG pCO2 VBG HCO3 VBG Total CO2 VBG O2 Sat (Calc) VBG Base Excess VBG Potassium A-a O2 Difference 193.0 Glucose 121 H Lactate 1.6 Vent Mode Venti mask FiO2 50.0 Sodium 141.0 145 Potassium 3.9 Chloride 111.0 H 110 H Carbon Dioxide 19 L Anion Gap 20 BUN 56 H Creatinine 1.0 Est GFR ( Amer) > 60 Est GFR (Non-Af Amer) > 60 Random Glucose 115 H Lactic Acid Calcium 8.1 L Total Bilirubin AST ALT Alkaline Phosphatase Troponin I 0.1570 H* NT-Pro-B Natriuret Pep Total Protein Albumin Globulin Albumin/Globulin Ratio Arterial Blood Potassium 3.9 Venous Blood Potassium Urine Color Urine Clarity Urine pH Ur Specific [place] Urine Protein Urine Glucose (UA) Urine Ketones Urine Blood Urine Nitrate Urine Bilirubin Urine Urobilinogen Ur Leukocyte Esterase Urine RBC (Auto) Urine Microscopic WBC Urine Bacteria Hyaline Casts Influenza Typ A,B (EIA) 01/21/18 01/21/18 01/21/18 04:30 04:30 04:30 WBC 13.7 H RBC 4.71 Hgb 15.3 D Hct 46.6 MCV 98.8 H MCH 32.4 H MCHC 32.8 L RDW 14.9 H Plt Count 135 MPV Neut % (Auto) Lymph % (Auto) [place] % (Auto) Eos % (Auto) Baso % (Auto) Neut # (Auto) Lymph # (Auto) [place] # (Auto) Eos # (Auto) Baso # (Auto) Neutrophils % (Manual) Lymphocytes % (Manual) Monocytes % (Manual) Toxic Granulation Platelet Estimate Anisocytosis (manual) PT INR APTT D-Dimer, Quantitative pCO2 pO2 HCO3 ABG pH ABG Total CO2 ABG O2 Saturation ABG Base Excess Sukhjinder Test ABG Potassium VBG pH VBG pCO2 VBG HCO3 VBG Total CO2 VBG O2 Sat (Calc) VBG Base Excess VBG Potassium A-a O2 Difference Glucose Lactate Vent Mode FiO2 Sodium 148 Potassium 3.7 Chloride 112 H Carbon Dioxide 20 L Anion Gap 20 BUN 53 H Creatinine 1.1 Est GFR ( Amer) > 60 Est GFR (Non-Af Amer) > 60 Random Glucose 95 Lactic Acid 1.7 Calcium 8.3 L Total Bilirubin 2.0 H AST 66 H D ALT 65 Alkaline Phosphatase 127 H Troponin I 0.1520 H* NT-Pro-B Natriuret Pep Total Protein 5.9 L Albumin 2.8 L Globulin 3.1 Albumin/Globulin Ratio 0.9 L Arterial Blood Potassium Venous Blood Potassium Urine Color Urine Clarity Urine pH Ur Specific [place] Urine Protein Urine Glucose (UA) Urine Ketones Urine Blood Urine Nitrate Urine Bilirubin Urine Urobilinogen Ur Leukocyte Esterase Urine RBC (Auto) Urine Microscopic WBC Urine Bacteria Hyaline Casts Influenza Typ A,B (EIA)
[2018-01-21] MEDS: Enoxaparin 60 mg Syringe SC SCH (09:48)
[2018-01-21] MEDS: Aspirin 325 mg EC Tablets PO SCH (09:48)
[2018-01-21] MEDS: Nitroglycerin 2% Ointment Foilpak UD TOP SCH ×2 (09:49→17:07)
--- NOTE | 2018-01-21 10:04 | CARD ---
APPROVED REPORT EKG Measurement Heart [id number] <Conclusion> Sinus rhythm with one premature ventricular complex Left axis deviation Right bundle branch block Abnormal ECG
--- NOTE | 2018-01-21 10:48 | CP.PCM.CON ---
History of Present Illness - History of Present Illness History of Present Illness: Infectious Disease consultation Note- asked to see this patietn at the request of for pneumonia. HPI- History obtained entirely from nurse and medical chart as patient has advanced dementia and does not answer questions. Patient is a 87 year old male who was recently discharged from hospital s/p fall and ? rib fracture who was d/c to rehab and Patient has been in the nursing facility for only a few days when staff noticed that he is was less alert and short of breath and was brought to ED for further evaluation and treatment. patient has severe and on admission cxr was reported to have b/l lower lobe alveolar infiltrates and lactate 2.8 and elevated wbc and hypoxic and hence he was admitted to ICU and was on FM and now is on nasal canula and saturating better than yesterday. currently pt. resting in bed in ICU, awake but drowsy, does not answer my questions but can follow some commands. Review of Systems - Review of Systems Review of Systems: ROS- unable to obtain as pt. does not answer questions Past Patient History - Past Medical History & Family History Past Medical History?: Yes - Past Social History Smoking Status: Never Smoked Home Situation {Lives}: Usp - CARDIAC Hx Hypercholesterolemia: Yes Hx Hypertension: Yes Other/Comment: aortic stenosis - PULMONARY Hx Asthma: No - NEUROLOGICAL Hx Dementia: Yes - HEENT Hx HEENT Problems: Yes Hx Deafness: Yes - RENAL Hx Chronic Kidney Disease: No Hx Kidney Stones: No - ENDOCRINE/METABOLIC Hx Hyperthyroidism: No Hx Hypothyroidism: No - HEMATOLOGICAL/ONCOLOGICAL Hx Blood Disorders: No - INTEGUMENTARY Hx Dermatological Problems: No - MUSCULOSKELETAL/RHEUMATOLOGICAL Hx Falls: Yes - GASTROINTESTINAL Hx Gastrointestinal Disorders: Yes Hx Gastroesophageal Reflux: Yes - GENITOURINARY/GYNECOLOGICAL Hx Genitourinary Disorders: No - PSYCHIATRIC Hx Substance Use: No - SURGICAL HISTORY Hx Surgeries: Yes Other/Comment: prostate sx?/rectal sx 1969 - ANESTHESIA Hx Anesthesia: Yes Hx Anesthesia Reactions: No Hx Malignant Hyperthermia: No Meds Allergies/Adverse Reactions: Allergies Allergy/AdvReac Type Severity Reaction Status Date / Time No Known Allergies Allergy Verified 01/13/18 18:54 - Medications Medications: Current Medications Aspirin (Ecotrin) 325 mg PO DAILY [facility] Last Admin: 01/21/18 09:48 Dose: 325 mg Atorvastatin Calcium (Lipitor) 20 mg PO DAILY [facility] Enoxaparin Sodium (Lovenox) 60 mg SC DAILY [facility] PRN Reason: Protocol Last Admin: 01/21/18 09:48 Dose: 60 mg Vancomycin HCl 750 mg/ Sodium (Chloride) 250 mls @ 166.667 mls/hr IVPB DAILY [facility] PRN Reason: Protocol Piperacillin Sod/Tazobactam (Sod 2.25 gm/ Sodium Chloride) 100 mls @ 100 mls/ hr IVPB Q6 [facility] PRN Reason: Protocol Last Admin: 01/21/18 09:50 Dose: 100 mls/hr Nitroglycerin (Nitro-Bid 2% Oint) 1 ea TOP BID [facility] Last Admin: 01/21/18 09:49 Dose: Not Given Physical Exam - Constitutional Appears: No Acute Distress, Cachectic, Chronically Ill - Head Exam Head Exam: ATRAUMATIC - ENT Exam ENT Exam: Normal Oropharynx - Neck Exam Neck exam: Positive for: Full Rom - Respiratory Exam Additional comments: slight tachypnea no wheezing bibasilar crackles - Cardiovascular Exam Cardiovascular Exam: RRR, +S1, +S2 - GI/Abdominal Exam GI & Abdominal Exam: Normal Bowel Sounds, Soft Additional comments: NT, ND - Extremities Exam Additional comments: no edema b/l LE - Neurological Exam Additional comments: lethargic but does open his eyes when name is called and does follow some commands Results - Vital Signs Recent Vital Signs: Last Vital Signs Temp 97.7 F 01/21/18 08:00 Pulse 82 01/21/18 09:49 Resp 21 01/21/18 08:00 BP 94/55 L 01/21/18 09:49 Pulse Ox 99 01/21/18 08:00 - Labs Result Diagrams: 01/21/18 04:30 01/21/18 04:30 Labs: Laboratory Results - last 24 hr 01/20/18 01/20/18 01/20/18 13:25 13:25 13:25 WBC 16.7 H D RBC 5.35 Hgb 17.4 Hct 52.3 H MCV 97.7 H MCH 32.5 H MCHC 33.3 RDW 15.4 H Plt Count 150 MPV 10.2 Neut % (Auto) 84.6 H Lymph % (Auto) 5.3 L Henderson % (Auto) 10.0 Eos % (Auto) 0.0 Baso % (Auto) 0.1 Neut # (Auto) 14.2 H Lymph # (Auto) 0.9 L Henderson # (Auto) 1.7 H Eos # (Auto) 0.0 Baso # (Auto) 0.0 Neutrophils % (Manual) 79 H Lymphocytes % (Manual) 10 L Monocytes % (Manual) 11 H Toxic Granulation Present Platelet Estimate Normal Anisocytosis (manual) Slight PT 16.1 H INR 1.4 H APTT 32.4 D-Dimer, Quantitative 3346 H pCO2 pO2 HCO3 ABG pH ABG Total CO2 ABG O2 Saturation ABG Base Excess Sukhjinder Test ABG Potassium VBG pH VBG pCO2 VBG HCO3 VBG Total CO2 VBG O2 Sat (Calc) VBG Base Excess VBG Potassium A-a O2 Difference Glucose Lactate Vent Mode FiO2 Sodium 146 Potassium 4.3 Chloride 109 H Carbon Dioxide 19 L Anion Gap 22 H BUN 58 H Creatinine 1.1 Est GFR ( Amer) > 60 Est GFR (Non-Af Amer) > 60 Random Glucose 110 Lactic Acid Calcium 8.8 Total Bilirubin 2.0 H AST 50 ALT 74 H D Alkaline Phosphatase 157 H D Troponin I 0.1590 H* NT-Pro-B Natriuret Pep 46478 H Total Protein 6.6 Albumin 3.3 L Globulin 3.2 Albumin/Globulin Ratio 1.0 Arterial Blood Potassium Venous Blood Potassium Urine Color Urine Clarity Urine pH Ur Specific [place] Urine Protein Urine Glucose (UA) Urine Ketones Urine Blood Urine Nitrate Urine Bilirubin Urine Urobilinogen Ur Leukocyte Esterase Urine RBC (Auto) Urine Microscopic WBC Urine Bacteria Hyaline Casts Influenza Typ A,B (EIA) 01/20/18 01/20/18 01/20/18 13:25 13:37 14:20 WBC RBC Hgb Hct MCV MCH MCHC RDW Plt Count MPV Neut % (Auto) Lymph % (Auto) [place] % (Auto) Eos % (Auto) Baso % (Auto) Neut # (Auto) Lymph # (Auto) [place] # (Auto) Eos # (Auto) Baso # (Auto) Neutrophils % (Manual) Lymphocytes % (Manual) Monocytes % (Manual) Toxic Granulation Platelet Estimate Anisocytosis (manual) PT INR APTT D-Dimer, Quantitative pCO2 pO2 36 HCO3 ABG pH ABG Total CO2 ABG O2 Saturation ABG Base Excess Sukhjinder Test ABG Potassium VBG pH 7.37 VBG pCO2 40 VBG HCO3 22.5 VBG Total CO2 24.3 VBG O2 Sat (Calc) 56.9 VBG Base Excess -2.0 L VBG Potassium 4.1 A-a O2 Difference Glucose 109 Lactate 2.8 H Vent Mode FiO2 100.0 Sodium 142.0 Potassium Chloride 107.0 Carbon Dioxide Anion Gap BUN Creatinine Est GFR ( Amer) Est GFR (Non-Af Amer) Random Glucose Lactic Acid Calcium Total Bilirubin AST ALT Alkaline Phosphatase Troponin I NT-Pro-B Natriuret Pep Total Protein Albumin Globulin Albumin/Globulin Ratio Arterial Blood Potassium Venous Blood Potassium 4.1 Urine Color Yellow Urine Clarity Slighty-cloudy Urine pH 5.0 Ur Specific [place] 1.021 Urine Protein Negative Urine Glucose (UA) Neg Urine Ketones Negative Urine Blood Small Urine Nitrate Negative Urine Bilirubin Negative Urine Urobilinogen 2.0 Ur Leukocyte Esterase Neg Urine RBC (Auto) 19 H Urine Microscopic WBC 2 Urine Bacteria Rare Hyaline Casts 3-5 H Influenza Typ A,B (EIA) Negative for flu a/b 01/20/18 01/20/18 01/20/18 16:31 16:52 20:15 WBC RBC Hgb Hct MCV MCH MCHC RDW Plt Count MPV Neut % (Auto) Lymph % (Auto) [place] % (Auto) Eos % (Auto) Baso % (Auto) Neut # (Auto) Lymph # (Auto) [place] # (Auto) Eos # (Auto) Baso # (Auto) Neutrophils % (Manual) Lymphocytes % (Manual) Monocytes % (Manual) Toxic Granulation Platelet Estimate Anisocytosis (manual) PT INR APTT D-Dimer, Quantitative pCO2 35 pO2 120 H HCO3 23.5 ABG pH 7.41 ABG Total CO2 23.3 ABG O2 Saturation 100.0 H ABG Base Excess -1.9 Sukhjinder Test Yes ABG Potassium 3.9 VBG pH VBG pCO2 VBG HCO3 VBG Total CO2 VBG O2 Sat (Calc) VBG Base Excess VBG Potassium A-a O2 Difference 193.0 Glucose 121 H Lactate 1.6 Vent Mode Venti mask FiO2 50.0 Sodium 141.0 145 Potassium 3.9 Chloride 111.0 H 110 H Carbon Dioxide 19 L Anion Gap 20 BUN 56 H Creatinine 1.0 Est GFR ( Amer) > 60 Est GFR (Non-Af Amer) > 60 Random Glucose 115 H Lactic Acid Calcium 8.1 L Total Bilirubin AST ALT Alkaline Phosphatase Troponin I 0.1570 H* NT-Pro-B Natriuret Pep Total Protein Albumin Globulin Albumin/Globulin Ratio Arterial Blood Potassium 3.9 Venous Blood Potassium Urine Color Urine Clarity Urine pH Ur Specific [place] Urine Protein Urine Glucose (UA) Urine Ketones Urine Blood Urine Nitrate Urine Bilirubin Urine Urobilinogen Ur Leukocyte Esterase Urine RBC (Auto) Urine Microscopic WBC Urine Bacteria Hyaline Casts Influenza Typ A,B (EIA) 01/21/18 01/21/18 01/21/18 04:30 04:30 04:30 WBC 13.7 H RBC 4.71 Hgb 15.3 D Hct 46.6 MCV 98.8 H MCH 32.4 H MCHC 32.8 L RDW 14.9 H Plt Count 135 MPV Neut % (Auto) Lymph % (Auto) [place] % (Auto) Eos % (Auto) Baso % (Auto) Neut # (Auto) Lymph # (Auto) [place] # (Auto) Eos # (Auto) Baso # (Auto) Neutrophils % (Manual) Lymphocytes % (Manual) Monocytes % (Manual) Toxic Granulation Platelet Estimate Anisocytosis (manual) PT INR APTT D-Dimer, Quantitative pCO2 pO2 HCO3 ABG pH ABG Total CO2 ABG O2 Saturation ABG Base Excess Sukhjinder Test ABG Potassium VBG pH VBG pCO2 VBG HCO3 VBG Total CO2 VBG O2 Sat (Calc) VBG Base Excess VBG Potassium A-a O2 Difference Glucose Lactate Vent Mode FiO2 Sodium 148 Potassium 3.7 Chloride 112 H Carbon Dioxide 20 L Anion Gap 20 BUN 53 H Creatinine 1.1 Est GFR ( Amer) > 60 Est GFR (Non-Af Amer) > 60 Random Glucose 95 Lactic Acid 1.7 Calcium 8.3 L Total Bilirubin 2.0 H AST 66 H D ALT 65 Alkaline Phosphatase 127 H Troponin I 0.1520 H* NT-Pro-B Natriuret Pep Total Protein 5.9 L Albumin 2.8 L Globulin 3.1 Albumin/Globulin Ratio 0.9 L Arterial Blood Potassium Venous Blood Potassium Urine Color Urine Clarity Urine pH Ur Specific [place] Urine Protein Urine Glucose (UA) Urine Ketones Urine Blood Urine Nitrate Urine Bilirubin Urine Urobilinogen Ur Leukocyte Esterase Urine RBC (Auto) Urine Microscopic WBC Urine Bacteria Hyaline Casts Influenza Typ A,B (EIA) Laboratory Results - last 72 hr 01/20/18 01/20/18 01/20/18 13:25 13:25 13:25 WBC 16.7 H D RBC 5.35 Hgb 17.4 Hct 52.3 H MCV 97.7 H MCH 32.5 H MCHC 33.3 RDW 15.4 H Plt Count 150 MPV 10.2 Neut % (Auto) 84.6 H Lymph % (Auto) 5.3 L [place] % (Auto) 10.0 Eos % (Auto) 0.0 Baso % (Auto) 0.1 Neut # (Auto) 14.2 H Lymph # (Auto) 0.9 L [place] # (Auto) 1.7 H Eos # (Auto) 0.0 Baso # (Auto) 0.0 Neutrophils % (Manual) 79 H Lymphocytes % (Manual) 10 L Monocytes % (Manual) 11 H Toxic Granulation Present Platelet Estimate Normal Anisocytosis (manual) Slight PT 16.1 H INR 1.4 H APTT 32.4 D-Dimer, Quantitative 3346 H pCO2 pO2 HCO3 ABG pH ABG Total CO2 ABG O2 Saturation ABG Base Excess Sukhjinder Test ABG Potassium VBG pH VBG pCO2 VBG HCO3 VBG Total CO2 VBG O2 Sat (Calc) VBG Base Excess VBG Potassium A-a O2 Difference Glucose Lactate Vent Mode FiO2 Sodium 146 Potassium 4.3 Chloride 109 H Carbon Dioxide 19 L Anion Gap 22 H BUN 58 H Creatinine 1.1 Est GFR ( Amer) > 60 Est GFR (Non-Af Amer) > 60 Random Glucose 110 Lactic Acid Calcium 8.8 Total Bilirubin 2.0 H AST 50 ALT 74 H D Alkaline Phosphatase 157 H D Troponin I 0.1590 H* NT-Pro-B Natriuret Pep 47635 H Total Protein 6.6 Albumin 3.3 L Globulin 3.2 Albumin/Globulin Ratio 1.0 Arterial Blood Potassium Venous Blood Potassium Urine Color Urine Clarity Urine pH Ur Specific [place] Urine Protein Urine Glucose (UA) Urine Ketones Urine Blood Urine Nitrate Urine Bilirubin Urine Urobilinogen Ur Leukocyte Esterase Urine RBC (Auto) Urine Microscopic WBC Urine Bacteria Hyaline Casts Influenza Typ A,B (EIA) 01/20/18 01/20/18 01/20/18 13:25 13:37 14:20 WBC RBC Hgb Hct MCV MCH MCHC RDW Plt Count MPV Neut % (Auto) Lymph % (Auto) [place] % (Auto) Eos % (Auto) Baso % (Auto) Neut # (Auto) Lymph # (Auto) [place] # (Auto) Eos # (Auto) Baso # (Auto) Neutrophils % (Manual) Lymphocytes % (Manual) Monocytes % (Manual) Toxic Granulation Platelet Estimate Anisocytosis (manual) PT INR APTT D-Dimer, Quantitative pCO2 pO2 36 HCO3 ABG pH ABG Total CO2 ABG O2 Saturation ABG Base Excess Sukhjinder Test ABG Potassium VBG pH 7.37 VBG pCO2 40 VBG HCO3 22.5 VBG Total CO2 24.3 VBG O2 Sat (Calc) 56.9 VBG Base Excess -2.0 L VBG Potassium 4.1 A-a O2 Difference Glucose 109 Lactate 2.8 H Vent Mode FiO2 100.0 Sodium 142.0 Potassium Chloride 107.0 Carbon Dioxide Anion Gap BUN Creatinine Est GFR ( Amer) Est GFR (Non-Af Amer) Random Glucose Lactic Acid Calcium Total Bilirubin AST ALT Alkaline Phosphatase Troponin I NT-Pro-B Natriuret Pep Total Protein Albumin Globulin Albumin/Globulin Ratio Arterial Blood Potassium Venous Blood Potassium 4.1 Urine Color Yellow Urine Clarity Slighty-cloudy Urine pH 5.0 Ur Specific [place] 1.021 Urine Protein Negative Urine Glucose (UA) Neg Urine Ketones Negative Urine Blood Small Urine Nitrate Negative Urine Bilirubin Negative Urine Urobilinogen 2.0 Ur Leukocyte Esterase Neg Urine RBC (Auto) 19 H Urine Microscopic WBC 2 Urine Bacteria Rare Hyaline Casts 3-5 H Influenza Typ A,B (EIA) Negative for flu a/b 01/20/18 01/20/18 01/20/18 16:31 16:52 20:15 WBC RBC Hgb Hct MCV MCH MCHC RDW Plt Count MPV Neut % (Auto) Lymph % (Auto) [place] % (Auto) Eos % (Auto) Baso % (Auto) Neut # (Auto) Lymph # (Auto) [place] # (Auto) Eos # (Auto) Baso # (Auto) Neutrophils % (Manual) Lymphocytes % (Manual) Monocytes % (Manual) Toxic Granulation Platelet Estimate Anisocytosis (manual) PT INR APTT D-Dimer, Quantitative pCO2 35 pO2 120 H HCO3 23.5 ABG pH 7.41 ABG Total CO2 23.3 ABG O2 Saturation 100.0 H ABG Base Excess -1.9 Sukhjinder Test Yes ABG Potassium 3.9 VBG pH VBG pCO2 VBG HCO3 VBG Total CO2 VBG O2 Sat (Calc) VBG Base Excess VBG Potassium A-a O2 Difference 193.0 Glucose 121 H Lactate 1.6 Vent Mode Venti mask FiO2 50.0 Sodium 141.0 145 Potassium 3.9 Chloride 111.0 H 110 H Carbon Dioxide 19 L Anion Gap 20 BUN 56 H Creatinine 1.0 Est GFR ( Amer) > 60 Est GFR (Non-Af Amer) > 60 Random Glucose 115 H Lactic Acid Calcium 8.1 L Total Bilirubin AST ALT Alkaline Phosphatase Troponin I 0.1570 H* NT-Pro-B Natriuret Pep Total Protein Albumin Globulin Albumin/Globulin Ratio Arterial Blood Potassium 3.9 Venous Blood Potassium Urine Color Urine Clarity Urine pH Ur Specific [place] Urine Protein Urine Glucose (UA) Urine Ketones Urine Blood Urine Nitrate Urine Bilirubin Urine Urobilinogen Ur Leukocyte Esterase Urine RBC (Auto) Urine Microscopic WBC Urine Bacteria Hyaline Casts Influenza Typ A,B (EIA) 01/21/18 01/21/18 01/21/18 04:30 04:30 04:30 WBC 13.7 H RBC 4.71 Hgb 15.3 D Hct 46.6 MCV 98.8 H MCH 32.4 H MCHC 32.8 L RDW 14.9 H Plt Count 135 MPV Neut % (Auto) Lymph % (Auto) [place] % (Auto) Eos % (Auto) Baso % (Auto) Neut # (Auto) Lymph # (Auto) [place] # (Auto) Eos # (Auto) Baso # (Auto) Neutrophils % (Manual) Lymphocytes % (Manual) Monocytes % (Manual) Toxic Granulation Platelet Estimate Anisocytosis (manual) PT INR APTT D-Dimer, Quantitative pCO2 pO2 HCO3 ABG pH ABG Total CO2 ABG O2 Saturation ABG Base Excess Sukhjinder Test ABG Potassium VBG pH VBG pCO2 VBG HCO3 VBG Total CO2 VBG O2 Sat (Calc) VBG Base Excess VBG Potassium A-a O2 Difference Glucose Lactate Vent Mode FiO2 Sodium 148 Potassium 3.7 Chloride 112 H Carbon Dioxide 20 L Anion Gap 20 BUN 53 H Creatinine 1.1 Est GFR ( Amer) > 60 Est GFR (Non-Af Amer) > 60 Random Glucose 95 Lactic Acid 1.7 Calcium 8.3 L Total Bilirubin 2.0 H AST 66 H D ALT 65 Alkaline Phosphatase 127 H Troponin I 0.1520 H* NT-Pro-B Natriuret Pep Total Protein 5.9 L Albumin 2.8 L Globulin 3.1 Albumin/Globulin Ratio 0.9 L Arterial Blood Potassium Venous Blood Potassium Urine Color Urine Clarity Urine pH Ur Specific [place] Urine Protein Urine Glucose (UA) Urine Ketones Urine Blood Urine Nitrate Urine Bilirubin Urine Urobilinogen Ur Leukocyte Esterase Urine RBC (Auto) Urine Microscopic WBC Urine Bacteria Hyaline Casts Influenza Typ A,B (EIA) Microbiology 01/20/18 14:20 Urine Urine Culture - Final No Growth (<1,000 CFU/ML) Accession No. : [id number] Patient Name / ID : SHANIKA LOPEZ / [id number] Exam Date : 01/21/2018 04:33:40 ( Approved ) Study Comment : Sex / Age : M / 87Y Creator : Owen Wan MD Dictator : Owen Wan MD Power Saw Operator : Technical Recruiter : Owen Wan MD Approver2 : Report Date : 01/21/2018 10:49:23 My Comment : HISTORY: f/u CHF COMPARISON: Portable chest 01/20/2018 FINDINGS: LUNGS: Hilar vascular markings are significantly improved suggesting improved CHF with mild residual remaining. Patchy atelectasis or infiltrate is seen in the right infrahilar space as well somewhat at the medial left base as well. No pleural effusion or pneumothorax identified bilaterally. Cardiac silhouette appears somewhat prominent. PLEURA: As above. CARDIOVASCULAR: As above. OSSEOUS STRUCTURES: No significant abnormalities. VISUALIZED UPPER ABDOMEN: Normal. OTHER FINDINGS: None. IMPRESSION: Improved CHF with limited residual. Medial basilar airspace is seen bilaterally mildly. Assessment & Plan (1) Pneumonia Status: Acute (2) CHF (congestive heart failure) Status: Acute - Assessment and Plan (Free Text) Assessment: A/P- 87 year old male with CHF, , admitted from rehab with sob, lethargic found to have b/l lower lobe alveolar infiltrate along with pulm edema . sob and hypoxia most likely as a result of both combination of severe /CHF along with Pneumonia. agree with ellyn that was already initiated by the ICU team to cover for nosocomial pthogens since pt. was recently d/c from hospital and was in rehab. keep vanco trough <15. chjeck sputum cx. check for mycoplasma serology and urine legionella AG. monitor aspiration precautions. monitor wbc. f/u blood cx as well. all labs , imaging and chart notes reviewed.. case d/w Community Service Officer Coordinator. Thank you for allowing me to take part in the care of this patient. ICU time 60 minutes.
--- NOTE | 2018-01-21 10:56 | RAD ---
HISTORY: f/u CHF COMPARISON: Portable chest 01/20/2018 FINDINGS: LUNGS: Hilar vascular markings are significantly improved suggesting improved CHF with mild residual remaining. Patchy atelectasis or infiltrate is seen in the right infrahilar space as well somewhat at the medial left base as well. No pleural effusion or pneumothorax identified bilaterally. Cardiac silhouette appears somewhat prominent. PLEURA: As above. CARDIOVASCULAR: As above. OSSEOUS STRUCTURES: No significant abnormalities. VISUALIZED UPPER ABDOMEN: Normal. OTHER FINDINGS: None. IMPRESSION: Improved CHF with limited residual. Medial basilar airspace is seen bilaterally mildly.
--- NOTE | 2018-01-21 12:48 | PN ---
DATE: 01/21/2018 DAILY PROGRESS NOTE SUBJECTIVE: The patient is seen today in Intensive Care Unit today on 01/21/2018. The patient is confused and less short of breath than when he was seen yesterday. PHYSICAL EXAMINATION: VITAL SIGNS: Blood pressure 94/55, temperature 97.7, respiratory rate 20, and pulse 82. HEENT: Pupils equal and reactive to light. Normal appearing mucosa of the conjunctivae, oropharynx, and nasal membrane mucosa. NECK: Supple. No JVD. No carotid bruit. No lymph node. No thyromegaly. CHEST AND LUNGS: Bilateral symmetrical expansion. Good air exchange. Few basilar rales bilaterally. CARDIOVASCULAR SYSTEM: PMI not localized. S1 and S2. No additional sounds except for ejection systolic murmur on the aortic area. ABDOMEN: Positive bowel sounds. No tenderness. No organomegaly. No masses. EXTREMITIES: No cyanosis. No clubbing. No edema. FLAT GRINDER OPERATOR: Awake, but is confused and moves all extremities equally. ASSESSMENT: Pulmonary edema, severe aortic stenosis, and bilateral pneumonia. PLAN: We will continue current IV antibiotics. Diuretics as needed. Follow recommendations of Cardiology and Infectious Disease. Nadine Ritter MD
[2018-01-22 05:49] LABS: EOS # 0.2 K/uL (0.0-0.7); EOS % 1.2 % (0.0-4.0); HEMOGLOBIN 15.9 g/dL (12.0-18.0); LYMPH # 0.9 K/uL (1.0-4.3); LYMPH % 6.9 % (20.0-40.0); MEAN CELL VOLUME 98.9 fl (80.0-94.0); MEAN CORPUSCULAR HEMOGLOBIN 32.6 pg (27.0-31.0); MEAN CORPUSCULAR HGB CONC 32.9 g/dL (33.0-37.0); MEAN PLATELET VOLUME 10.6 fl (7.2-11.7); MONO # 1.2 K/uL (0.0-0.8); MONO % 8.5 % (0.0-10.0); NEUT # 11.3 K/uL (1.8-7.0); NEUT % 83.4 % (50.0-75.0); NRBC % 0.1 % (0.0-0.0); RBC 4.88 Mil/uL (4.40-5.90); RED CELL DISTRIBUTION WIDTH 15.3 % (11.5-14.5); WHITE BLOOD COUNT 13.5 K/uL (4.8-10.8)
[2018-01-22 06:15] LABS: ALB/GLOB RATIO 0.9 (1.0-2.1); ALBUMIN 2.8 g/dL (3.5-5.0); ALT/SGPT 68 U/L (21-72); AST/SGOT 54 U/L (17-59); BLOOD UREA NITROGEN 42 mg/dl (9-20); GFR AFRICAN-AMERICAN > 60; GFR NON-AFRICAN AMERICAN > 60
[2018-01-22] MEDS: Aspirin 325 mg EC Tablets PO SCH (09:34)
[2018-01-22] MEDS: Nitroglycerin 2% Ointment Foilpak UD TOP SCH ×2 (09:34→17:22)
[2018-01-22] MEDS: Enoxaparin 60 mg Syringe SC SCH (09:34)
--- NOTE | 2018-01-22 10:37 | CP.PCM.PN ---
Subjective - Date & Time of Evaluation Date of Evaluation: 01/22/18 Time of Evaluation: 10:36 - Subjective Subjective: ID Note- drissn seen and examined today in ICU. his at his bedside. slightly less lethargic today. breathing comfortable in bed. No new events overnight. Objective - Vital Signs/Intake and Output Vital Signs (last 24 hours): Temp Pulse Resp BP Pulse Ox 98.8 F 80 23 88/50 L 99 01/22/18 08:00 01/22/18 09:34 01/22/18 08:00 01/22/18 09:34 01/22/18 08:00 Intake and Output: 01/22/18 01/22/18 06:59 18:59 Intake Total 320 Output Total 600 Balance -280 - Medications Medications: Current Medications Aspirin (Ecotrin) 325 mg PO DAILY [facility] Last Admin: 01/22/18 09:34 Dose: 325 mg Atorvastatin Calcium (Lipitor) 20 mg PO DAILY [facility] Last Admin: 01/22/18 09:34 Dose: 20 mg Enoxaparin Sodium (Lovenox) 60 mg SC DAILY [facility] PRN Reason: Protocol Last Admin: 01/22/18 09:34 Dose: 60 mg Vancomycin HCl 750 mg/ Sodium (Chloride) 250 mls @ 166.667 mls/hr IVPB DAILY [facility] PRN Reason: Protocol Last Admin: 01/21/18 12:00 Dose: 166.667 mls/hr Piperacillin Sod/Tazobactam (Sod 2.25 gm/ Sodium Chloride) 100 mls @ 100 mls/ hr IVPB Q6 [facility] PRN Reason: Protocol Last Admin: 01/22/18 09:32 Dose: 100 mls/hr Dextrose (Dextrose 5% In Water 1000 Ml) 1,000 mls @ 50 mls/hr IV .Q20H [facility] Stop: 01/23/18 06:47 Last Admin: 01/22/18 07:16 Dose: 50 mls/hr Nitroglycerin (Nitro-Bid 2% Oint) 1 ea TOP BID [facility] Last Admin: 01/22/18 09:34 Dose: Not Given - Labs Labs: - Additional Findings Additional findings: - Constitutional Appears: No Acute Distress, Cachectic, Chronically Ill - Head Exam Head Exam: ATRAUMATIC - ENT Exam ENT Exam: Normal Oropharynx - Neck Exam Neck exam: Positive for: Full Rom - Respiratory Exam Additional comments: no wheezing bibasilar crackles - Cardiovascular Exam Cardiovascular Exam: RRR, +S1, +S2 - GI/Abdominal Exam GI & Abdominal Exam: Normal Bowel Sounds, Soft Additional comments: NT, ND - Extremities Exam Additional comments: no edema b/l LE - Neurological Exam Additional comments: does open his eyes when name is called and does follow some commands Laboratory Results - last 72 hr 01/20/18 01/20/18 01/20/18 13:25 13:25 13:25 WBC 16.7 H D RBC 5.35 Hgb 17.4 Hct 52.3 H MCV 97.7 H MCH 32.5 H MCHC 33.3 RDW 15.4 H Plt Count 150 MPV 10.2 Neut % (Auto) 84.6 H Lymph % (Auto) 5.3 L [place] % (Auto) 10.0 Eos % (Auto) 0.0 Baso % (Auto) 0.1 Neut # (Auto) 14.2 H Lymph # (Auto) 0.9 L [place] # (Auto) 1.7 H Eos # (Auto) 0.0 Baso # (Auto) 0.0 Neutrophils % (Manual) 79 H Lymphocytes % (Manual) 10 L Monocytes % (Manual) 11 H Toxic Granulation Present Platelet Estimate Normal Anisocytosis (manual) Slight PT 16.1 H INR 1.4 H APTT 32.4 D-Dimer, Quantitative 3346 H pCO2 pO2 HCO3 ABG pH ABG Total CO2 ABG O2 Saturation ABG Base Excess Sukhjinder Test ABG Potassium VBG pH VBG pCO2 VBG HCO3 VBG Total CO2 VBG O2 Sat (Calc) VBG Base Excess VBG Potassium A-a O2 Difference Glucose Lactate Vent Mode FiO2 Sodium 146 Potassium 4.3 Chloride 109 H Carbon Dioxide 19 L Anion Gap 22 H BUN 58 H Creatinine 1.1 Est GFR ( Amer) > 60 Est GFR (Non-Af Amer) > 60 Random Glucose 110 Lactic Acid Calcium 8.8 Total Bilirubin 2.0 H AST 50 ALT 74 H D Alkaline Phosphatase 157 H D Troponin I 0.1590 H* NT-Pro-B Natriuret Pep 08967 H Total Protein 6.6 Albumin 3.3 L Globulin 3.2 Albumin/Globulin Ratio 1.0 Procalcitonin Arterial Blood Potassium Venous Blood Potassium Urine Color Urine Clarity Urine pH Ur Specific [place] Urine Protein Urine Glucose (UA) Urine Ketones Urine Blood Urine Nitrate Urine Bilirubin Urine Urobilinogen Ur Leukocyte Esterase Urine RBC (Auto) Urine Microscopic WBC Urine Bacteria Hyaline Casts Influenza Typ A,B (EIA) 01/20/18 01/20/18 01/20/18 13:25 13:37 14:20 WBC RBC Hgb Hct MCV MCH MCHC RDW Plt Count MPV Neut % (Auto) Lymph % (Auto) [place] % (Auto) Eos % (Auto) Baso % (Auto) Neut # (Auto) Lymph # (Auto) [place] # (Auto) Eos # (Auto) Baso # (Auto) Neutrophils % (Manual) Lymphocytes % (Manual) Monocytes % (Manual) Toxic Granulation Platelet Estimate Anisocytosis (manual) PT INR APTT D-Dimer, Quantitative pCO2 pO2 36 HCO3 ABG pH ABG Total CO2 ABG O2 Saturation ABG Base Excess Sukhjinder Test ABG Potassium VBG pH 7.37 VBG pCO2 40 VBG HCO3 22.5 VBG Total CO2 24.3 VBG O2 Sat (Calc) 56.9 VBG Base Excess -2.0 L VBG Potassium 4.1 A-a O2 Difference Glucose 109 Lactate 2.8 H Vent Mode FiO2 100.0 Sodium 142.0 Potassium Chloride 107.0 Carbon Dioxide Anion Gap BUN Creatinine Est GFR ( Amer) Est GFR (Non-Af Amer) Random Glucose Lactic Acid Calcium Total Bilirubin AST ALT Alkaline Phosphatase Troponin I NT-Pro-B Natriuret Pep Total Protein Albumin Globulin Albumin/Globulin Ratio Procalcitonin Arterial Blood Potassium Venous Blood Potassium 4.1 Urine Color Yellow Urine Clarity Slighty-cloudy Urine pH 5.0 Ur Specific [place] 1.021 Urine Protein Negative Urine Glucose (UA) Neg Urine Ketones Negative Urine Blood Small Urine Nitrate Negative Urine Bilirubin Negative Urine Urobilinogen 2.0 Ur Leukocyte Esterase Neg Urine RBC (Auto) 19 H Urine Microscopic WBC 2 Urine Bacteria Rare Hyaline Casts 3-5 H Influenza Typ A,B (EIA) Negative for flu a/b 01/20/18 01/20/18 01/20/18 16:31 16:52 20:15 WBC RBC Hgb Hct MCV MCH MCHC RDW Plt Count MPV Neut % (Auto) Lymph % (Auto) [place] % (Auto) Eos % (Auto) Baso % (Auto) Neut # (Auto) Lymph # (Auto) [place] # (Auto) Eos # (Auto) Baso # (Auto) Neutrophils % (Manual) Lymphocytes % (Manual) Monocytes % (Manual) Toxic Granulation Platelet Estimate Anisocytosis (manual) PT INR APTT D-Dimer, Quantitative pCO2 35 pO2 120 H HCO3 23.5 ABG pH 7.41 ABG Total CO2 23.3 ABG O2 Saturation 100.0 H ABG Base Excess -1.9 Sukhjinder Test Yes ABG Potassium 3.9 VBG pH VBG pCO2 VBG HCO3 VBG Total CO2 VBG O2 Sat (Calc) VBG Base Excess VBG Potassium A-a O2 Difference 193.0 Glucose 121 H Lactate 1.6 Vent Mode Venti mask FiO2 50.0 Sodium 141.0 145 Potassium 3.9 Chloride 111.0 H 110 H Carbon Dioxide 19 L Anion Gap 20 BUN 56 H Creatinine 1.0 Est GFR ( Amer) > 60 Est GFR (Non-Af Amer) > 60 Random Glucose 115 H Lactic Acid Calcium 8.1 L Total Bilirubin AST ALT Alkaline Phosphatase Troponin I 0.1570 H* NT-Pro-B Natriuret Pep Total Protein Albumin Globulin Albumin/Globulin Ratio Procalcitonin Arterial Blood Potassium 3.9 Venous Blood Potassium Urine Color Urine Clarity Urine pH Ur Specific [place] Urine Protein Urine Glucose (UA) Urine Ketones Urine Blood Urine Nitrate Urine Bilirubin Urine Urobilinogen Ur Leukocyte Esterase Urine RBC (Auto) Urine Microscopic WBC Urine Bacteria Hyaline Casts Influenza Typ A,B (EIA) 01/20/18 01/21/18 01/21/18 20:15 04:30 04:30 WBC 13.7 H RBC 4.71 Hgb 15.3 D Hct 46.6 MCV 98.8 H MCH 32.4 H MCHC 32.8 L RDW 14.9 H Plt Count 135 MPV Neut % (Auto) Lymph % (Auto) [place] % (Auto) Eos % (Auto) Baso % (Auto) Neut # (Auto) Lymph # (Auto) [place] # (Auto) Eos # (Auto) Baso # (Auto) Neutrophils % (Manual) Lymphocytes % (Manual) Monocytes % (Manual) Toxic Granulation Platelet Estimate Anisocytosis (manual) PT INR APTT D-Dimer, Quantitative pCO2 pO2 HCO3 ABG pH ABG Total CO2 ABG O2 Saturation ABG Base Excess Sukhjinder Test ABG Potassium VBG pH VBG pCO2 VBG HCO3 VBG Total CO2 VBG O2 Sat (Calc) VBG Base Excess VBG Potassium A-a O2 Difference Glucose Lactate Vent Mode FiO2 Sodium 148 Potassium 3.7 Chloride 112 H Carbon Dioxide 20 L Anion Gap 20 BUN 53 H Creatinine 1.1 Est GFR ( Amer) > 60 Est GFR (Non-Af Amer) > 60 Random Glucose 95 Lactic Acid Calcium 8.3 L Total Bilirubin 2.0 H AST 66 H D ALT 65 Alkaline Phosphatase 127 H Troponin I 0.1520 H* NT-Pro-B Natriuret Pep Total Protein 5.9 L Albumin 2.8 L Globulin 3.1 Albumin/Globulin Ratio 0.9 L Procalcitonin 0.40 Arterial Blood Potassium Venous Blood Potassium Urine Color Urine Clarity Urine pH Ur Specific [place] Urine Protein Urine Glucose (UA) Urine Ketones Urine Blood Urine Nitrate Urine Bilirubin Urine Urobilinogen Ur Leukocyte Esterase Urine RBC (Auto) Urine Microscopic WBC Urine Bacteria Hyaline Casts Influenza Typ A,B (EIA) 01/21/18 01/22/18 01/22/18 04:30 05:00 05:00 WBC 13.5 H RBC 4.88 Hgb 15.9 Hct 48.3 MCV 98.9 H MCH 32.6 H MCHC 32.9 L RDW 15.3 H Plt Count 152 MPV 10.6 Neut % (Auto) 83.4 H Lymph % (Auto) 6.9 L [place] % (Auto) 8.5 Eos % (Auto) 1.2 Baso % (Auto) 0.0 Neut # (Auto) 11.3 H Lymph # (Auto) 0.9 L [place] # (Auto) 1.2 H Eos # (Auto) 0.2 Baso # (Auto) 0.0 Neutrophils % (Manual) Lymphocytes % (Manual) Monocytes % (Manual) Toxic Granulation Platelet Estimate Anisocytosis (manual) PT INR APTT D-Dimer, Quantitative pCO2 pO2 HCO3 ABG pH ABG Total CO2 ABG O2 Saturation ABG Base Excess Sukhjinder Test ABG Potassium VBG pH VBG pCO2 VBG HCO3 VBG Total CO2 VBG O2 Sat (Calc) VBG Base Excess VBG Potassium A-a O2 Difference Glucose Lactate Vent Mode FiO2 Sodium 152 H Potassium 3.7 Chloride 114 H Carbon Dioxide 20 L Anion Gap 22 H BUN 42 H Creatinine 1.0 Est GFR ( Amer) > 60 Est GFR (Non-Af Amer) > 60 Random Glucose 77 Lactic Acid 1.7 Calcium 8.0 L Total Bilirubin 2.1 H AST 54 ALT 68 Alkaline Phosphatase 107 Troponin I NT-Pro-B Natriuret Pep Total Protein 5.8 L Albumin 2.8 L Globulin 3.1 Albumin/Globulin Ratio 0.9 L Procalcitonin Arterial Blood Potassium Venous Blood Potassium Urine Color Urine Clarity Urine pH Ur Specific [place] Urine Protein Urine Glucose (UA) Urine Ketones Urine Blood Urine Nitrate Urine Bilirubin Urine Urobilinogen Ur Leukocyte Esterase Urine RBC (Auto) Urine Microscopic WBC Urine Bacteria Hyaline Casts Influenza Typ A,B (EIA) Microbiology 01/20/18 12:00 Blood Blood Culture - Preliminary NO GROWTH AFTER 48 HOURS 01/20/18 16:52 Naris MRSA Culture (Admit) - Final MRSA NOT DETECTED 01/21/18 09:26 Sputum Gram Stain - Final 01/20/18 01:20 Blood Blood Culture - Preliminary NO GROWTH AFTER 24 HOURS 01/20/18 14:20 Urine Urine Culture - Final No Growth (<1,000 CFU/ML) Assessment and Plan (1) Pneumonia Status: Acute (2) CHF (congestive heart failure) Status: Acute - Assessment and Plan (Free Text) Assessment: A/P- 87 year old male with CHF, , admitted from rehab with sob, lethargic found to have b/l lower lobe alveolar infiltrate along with pulm edema . sob and hypoxia most likely as a result of both combination of severe /CHF along with Pneumonia. afebrile leukocytosis trending down. blood cx neg x 2 urine cx- neg sputum cx- pending Plan- continue with Iv zosyn and vanco day 32 to cover for nosocomial pthogens since pt. was recently d/c from hospital and was in rehab. keep vanco trough <15. await sputum cx. await mycoplasma serology and urine legionella AG. monitor aspiration precautions. monitor wbc. all labs , imaging and chart notes reviewed.. ICu time spent 45 minutes
--- NOTE | 2018-01-22 10:55 | CP.PCM.PN ---
Subjective - Date & Time of Evaluation Date of Evaluation: 01/22/18 Time of Evaluation: 10:00 - Subjective Subjective: Breathes a lot more comfortably than before Has a dull, uncoprehending expression Quite confused and unable to answer simple quwstions Following diuresis now hypotensive with syst BP 88-100 mm Hg) S Na 152 mEq/L (On IV D/W infusion) BUN/ Creatinin stable Mild leucocytosis persists (Seen by ID on IVABx) With critical and depressed LVEF, has a poor prognosis Have spoken with and niece Renu at length re inadvisability of resuscitative efforts in case of card/resp arrest (unless is addressed) Pt is not a candidate for AVR Both Renu and pt's have requested DNR (corroborated by the nurses) Have spoken with Farm Loan Inspector re DNR Objective - Vital Signs/Intake and Output Vital Signs (last 24 hours): Temp Pulse Resp BP Pulse Ox 98.8 F 80 23 88/50 L 99 01/22/18 08:00 01/22/18 09:34 01/22/18 08:00 01/22/18 09:34 01/22/18 08:00 Intake and Output: 01/22/18 01/22/18 06:59 18:59 Intake Total 320 Output Total 600 Balance -280 - Medications Medications: Current Medications Aspirin (Ecotrin) 325 mg PO DAILY [facility] Last Admin: 01/22/18 09:34 Dose: 325 mg Atorvastatin Calcium (Lipitor) 20 mg PO DAILY [facility] Last Admin: 01/22/18 09:34 Dose: 20 mg Enoxaparin Sodium (Lovenox) 60 mg SC DAILY [facility] PRN Reason: Protocol Last Admin: 01/22/18 09:34 Dose: 60 mg Vancomycin HCl 750 mg/ Sodium (Chloride) 250 mls @ 166.667 mls/hr IVPB DAILY [facility] PRN Reason: Protocol Last Admin: 01/21/18 12:00 Dose: 166.667 mls/hr Piperacillin Sod/Tazobactam (Sod 2.25 gm/ Sodium Chloride) 100 mls @ 100 mls/ hr IVPB Q6 [facility] PRN Reason: Protocol Last Admin: 01/22/18 09:32 Dose: 100 mls/hr Dextrose (Dextrose 5% In Water 1000 Ml) 1,000 mls @ 50 mls/hr IV .Q20H [facility] Stop: 01/23/18 06:47 Last Admin: 01/22/18 07:16 Dose: 50 mls/hr Nitroglycerin (Nitro-Bid 2% Oint) 1 ea TOP BID [facility] Last Admin: 01/22/18 09:34 Dose: Not Given - Labs Labs: 01/22/18 05:00 01/22/18 05:00 PT 16.1 Seconds (9.8-13.1) H 01/20/18 13:25 INR 1.4 (0.9-1.2) H 01/20/18 13:25 APTT 32.4 Seconds (25.6-37.1) 01/20/18 13:25
--- NOTE | 2018-01-22 10:56 | CP.CCUPN ---
CCU Subjective - Physician Review Subjective (Free Text): Still lethargic, partially opens eyes to verbal stimuli and name calling, more verbal today. at the bedside now this AM. SPo2 99% now on nasal canula oxygen. Other VS and I/Os reviewed. Overall fluid balance since admission yesterday = negative 0.28 L. ROS: No other pertinent negs or positives on 10+ system review unobtainable, lethargic. PMSFH: HTN, Deafness, Severe Aortic stenosis, h/o Falls. All other Nursing and physician documentation reviewed to date; no new pertinent info noted relevant to current medical problems. EXAM- HEENT: no icterus, no gaze preference, pupils equal and reactive, no icterus NECK: No JVD, supple, carotids equal upstroke bilat/no bruits CHEST: decreased BS bases, no wheezes audible HEART: regular tachy, distant, S1S2, no rubs. ABD: soft, mild distention, no tympany, no palp tenderness, BS hypoactive, liver edge nonpalpable. EXT: ++ edema, No peripheral cyanosis, but slight mottling of the feet noted, and nailbeds are dusky, no calf tenderness or palpable cords, distal pulses intact and symmetrical. NEURO: no focal motor deficits, withdraws to pain. Opens eyes to loud name calling. SKIN: no rashes, warm and dry. Old ecchymoses over RUE and RLE. LABS: WBC= 13.5 HGB= 15.9 PLTs= 152 K Na= 152 K= 3.7 CL= 114 HCO3= 20 BUN/Cr= 42/1.0 BS= 77 Procalcitonin= 0.40 IMPRESSION / MAJOR PROBLEMS NOW: 1. Acute Resp Insuff 2 bilateral Pneumonia versus compressive atelectasis with bilat pleural effusions ( as seen on last CT Chest 01/13) and Decompensated left CHF and h/o Pulm HTN 2. Azotemia / Dehydration; r/o CKD 2 Cardiomyopathy 3. Acute / Subacute NSTEMI 4. 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 5. Senile Dementia PLAN: 1. Empiric Abx coverage, Sputum C&S, legionella urine Ag. Procalcitonin normal , consider stopping Abx. 2. Unacceptable lethargy for BiPAP, will place on HFNC support if he desats. 3. Consider repeat CT Chest for f/u from last study on 01/13 to clarify infiltrates vs atelectasis with effusion. 4. Topical Nitropaste, BBs, statin, LMWH at 1.0mg/kg dose added. Lasix prn; Cardio eval reviewed. 5. Hold Seroquel unless there is un-manageable psychomotor agitation. 6. DNR, DNI ordered as per and patients niece after their discussion with Dr. Montejo. CCU Objective - Vital Signs / Intake & Output Vital Signs (Last 4 hours): Vital Signs Temp Pulse Resp BP Pulse Ox 01/22/18 09:34 80 88/50 L 01/22/18 08:00 98.8 F 76 23 88/50 L 99 Intake and Output (Last 8hrs): Intake & Output 01/21/18 01/22/18 01/22/18 22:59 06:59 14:59 Intake Total 160 160 Output Total 600 Balance 160 -440 Intake: Intake, Piggyback 100 100 Oral 60 60 Output: Urine 600 Urethral (Child) 600 - Medications Active Medications: Active Medications Generic Name Dose Route Start Last Admin Trade Name Freq PRN Reason Stop Dose Admin Aspirin 325 mg 01/20/18 15:45 01/22/18 09:34 Ecotrin PO 325 mg DAILY [facility] Administration Atorvastatin Calcium 20 mg 01/21/18 09:00 01/22/18 09:34 Lipitor PO 20 mg DAILY [facility] Administration Enoxaparin Sodium 60 mg 01/20/18 16:15 01/22/18 09:34 Lovenox SC 60 mg DAILY [facility] Administration Protocol Vancomycin HCl 750 mg/ Sodium 250 mls @ 166.667 mls/hr 01/21/18 09:00 12:00 Chloride IVPB 166.667 mls/hr DAILY [facility] Administration Protocol Piperacillin Sod/Tazobactam 100 mls @ 100 mls/hr 01/20/18 16:00 01/22/18 09: 32 Sod 2.25 gm/ Sodium Chloride IVPB 100 mls/hr Q6 [facility] Administration Protocol Dextrose 1,000 mls @ 50 mls/hr 01/22/18 07:00 01/22/18 07:16 Dextrose 5% In Water 1000 Ml IV 01/23/18 06:47 50 mls/hr .Q20H [facility] Administration Nitroglycerin 1 ea 01/21/18 09:00 01/22/18 09:34 Nitro-Bid 2% Oint TOP Not Given BID [facility] - Patient Studies Lab Studies: Microbiology Studies 01/20/18 16:52 MRSA Culture (Admit) - Final Naris MRSA NOT DETECTED 01/21/18 09:26 Gram Stain - Final Sputum 01/20/18 01:20 Blood Culture - Preliminary Blood NO GROWTH AFTER 24 HOURS 01/20/18 12:00 Blood Culture - Preliminary Blood NO GROWTH AFTER 24 HOURS 01/20/18 14:20 Urine Culture - Final Urine No Growth (<1,000 CFU/ML) Lab Studies 01/22/18 01/22/18 01/20/18 Range/Units 05:00 05:00 20:15 WBC 13.5 H (4.8-10.8) K/uL RBC 4.88 (4.40-5.90) Mil/uL Hgb 15.9 (12.0-18.0) g/dL Hct 48.3 (35.0-51.0) % MCV 98.9 H (80.0-94.0) fl MCH 32.6 H (27.0-31.0) pg MCHC 32.9 L (33.0-37.0) g/dL RDW 15.3 H (11.5-14.5) % Plt Count 152 (130-400) K/uL MPV 10.6 (7.2-11.7) fl Neut % (Auto) 83.4 H (50.0-75.0) % Lymph % (Auto) 6.9 L (20.0-40.0) % [place] % (Auto) 8.5 (0.0-10.0) % Eos % (Auto) 1.2 (0.0-4.0) % Baso % (Auto) 0.0 (0.0-2.0) % Neut # (Auto) 11.3 H (1.8-7.0) K/uL Lymph # (Auto) 0.9 L (1.0-4.3) K/uL [place] # (Auto) 1.2 H (0.0-0.8) K/uL Eos # (Auto) 0.2 (0.0-0.7) K/uL Baso # (Auto) 0.0 (0.0-0.2) K/uL Sodium 152 H (132-148) mmol/l Potassium 3.7 (3.6-5.0) MMOL/L Chloride 114 H (98-107) mmol/L Carbon Dioxide 20 L (22-30) mmol/L Anion Gap 22 H (10-20) BUN 42 H (9-20) mg/dl Creatinine 1.0 (0.8-1.5) mg/dl Est GFR ( Amer) > 60 Est GFR (Non-Af Amer) > 60 Random Glucose 77 (75-110) mg/dL Calcium 8.0 L (8.4-10.2) mg/dL Total Bilirubin 2.1 H (0.2-1.3) mg/dl AST 54 (17-59) U/L ALT 68 (21-72) U/L Alkaline Phosphatase 107 (38-126) U/L Total Protein 5.8 L (6.3-8.2) G/DL Albumin 2.8 L (3.5-5.0) g/dL Globulin 3.1 (2.2-3.9) gm/dL Albumin/Globulin Ratio 0.9 L (1.0-2.1) Procalcitonin 0.40 (0.19-0.49) NG/ML Laboratory Results - last 24 hr 01/20/18 01/22/18 01/22/18 20:15 05:00 05:00 WBC 13.5 H RBC 4.88 Hgb 15.9 Hct 48.3 MCV 98.9 H MCH 32.6 H MCHC 32.9 L RDW 15.3 H Plt Count 152 MPV 10.6 Neut % (Auto) 83.4 H Lymph % (Auto) 6.9 L [place] % (Auto) 8.5 Eos % (Auto) 1.2 Baso % (Auto) 0.0 Neut # (Auto) 11.3 H Lymph # (Auto) 0.9 L [place] # (Auto) 1.2 H Eos # (Auto) 0.2 Baso # (Auto) 0.0 Sodium 152 H Potassium 3.7 Chloride 114 H Carbon Dioxide 20 L Anion Gap 22 H BUN 42 H Creatinine 1.0 Est GFR ( Amer) > 60 Est GFR (Non-Af Amer) > 60 Random Glucose 77 Calcium 8.0 L Total Bilirubin 2.1 H AST 54 ALT 68 Alkaline Phosphatase 107 Total Protein 5.8 L Albumin 2.8 L Globulin 3.1 Albumin/Globulin Ratio 0.9 L Procalcitonin 0.40
--- NOTE | 2018-01-22 11:27 | PQF GENQUE ---
Dr. Ritter, Please specify type of pneumonia in the progress notes:if known ---Note: CAP, HAP, and HCAP indicate where the pneumonia was acquired, not a specific type. i.e. Aspiration pneumonia Please document specific aspirate (food, liquids, etc.) Please indicate if this is postprocedural Bacterial (specify organism) Bronchopneumonia (specify organism) Interstitual pneumonia Organizing pneumonia/BOOP Pneumonia with influenza, prakash flu, or H1N1 flu RSV pneumonia Tuberculosis, pulmonary Viral pneumonia Other pneumonia (specify organism or type) Clinically unable to determine Unknown Note: Probable and suspected conditions can be coded as if they exist if still documented at the time of discharge. 2. Please specify the organism causing the pneumonia: if known 01/20 CXR:Impresion:Localized calcified plaque left upper anterior chest wall again noted. The. Mild to moderate pulmonary vascular congestion with bilateral lower lobe alveolar-type infiltrates and bilateral effusions. 01/21 CXR: Impression : Improved CHF with limited residual. Medial basilar airspace is seen bilaterally mildly. ER MD: will start antibiotics for hospital acquired pneumonia, 01/21 Attending progress note: Assessment: Pulmonary edema, severe aortic stenosis, and bilateral pneumonia. IVAB's This form is a permanent part of the medical record Clarification of your documentation is requested to better reflect the severity of illness and intensity of treatment of your patient. Indicators present [] Specify: [] [] Specify: [] [] Specify: [] [] Specify: [] Location in the medical record that reflects the above clinical findings: [] Treatment Provided: [] PHYSICIAN'S RESPONSE Based on your medical judgment of the clinical indicators outlined above please clarify the following: [] Practitioner response [] If unable to determine, please check the box, sign and date. Present On Admission (POA) Indicator: [] Present at the time of admission [] Not present at the time of admission [] Clinically Undetermined In responding to this query, please exercise your independent professional judgment. The fact that a question is asked does not imply that any particular answer is desired or expected. Thank you for your clarification on this documentation. If you have any questions please call. * Thank you, Leigha Vail RN ext. #[phone] MTDD
--- NOTE | 2018-01-22 11:38 | PQF GENQUE ---
Dr. Ritter, The attending physician is required to clarify conflicting documentation in the medical record. The following documentation is noted in the medical record: Diagnosis 1: Elevated troponin most likely represents acute left ventricular failure Documented by: Cardiology Location: 01/21 Consult Note Diagnosis 2: Acute / Subacute NSTEMI Documented by: Tram Driver Location: : Crit Care Progress Note Troponin I : 0.1590->0.1570->0.1520 This form is a permanent part of the medical record Clarification of your documentation is requested to better reflect the severity of illness and intensity of treatment of your patient. Indicators present [] Specify: [] [] Specify: [] [] Specify: [] [] Specify: [] Location in the medical record that reflects the above clinical findings: [] Treatment Provided: [] PHYSICIAN'S RESPONSE Based on your medical judgment of the clinical indicators outlined above please clarify the following: [] Practitioner response [] If unable to determine, please check the box, sign and date. Present On Admission (POA) Indicator: [] Present at the time of admission [] Not present at the time of admission [] Clinically Undetermined In responding to this query, please exercise your independent professional judgment. The fact that a question is asked does not imply that any particular answer is desired or expected. Thank you for your clarification on this documentation. If you have any questions please call. * Thank you, Leigha Vail RN ext. #[phone] MTDD
--- NOTE | 2018-01-22 12:01 | PQF GENQUE ---
Dr. PRIETO, Please specify the type and acuity of heart failure in your progress notes: if known TYPE:i.e. Combined systolic and diastolic Diastolic Systolic Other (please specify) Clinically unable to determine Unknown ProBNP: 42440 01/20 CXR: Impression : Localized calcified plaque left upper anterior chest wall again noted. The. Mild to moderate pulmonary vascular congestion with bilateral lower lobe alveolar-type infiltrates and bilateral effusions. 01/21 CXR: Impression Improved CHF with limited residual. Medial basilar airspace is seen bilaterally mildly. 01/20: Critical Care consult: Decompensated left CHF Lasix IV, coreg, O2 This form is a permanent part of the medical record Clarification of your documentation is requested to better reflect the severity of illness and intensity of treatment of your patient. 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 All of your statements above (elevated Pro BNP, chest x ray findings, critical care note and the treatment provided,eg Lasix and Coreg) attest to that conclusion. Based on your medical judgment of the clinical indicators outlined above please clarify the following: [X] Practitioner response See above statement. [] If unable to determine, please check the box, sign and date. Present On Admission (POA) Indicator: [X] Present at the time of admission The patient has heart failure at admission. [] Not present at the time of admission [] Clinically Undetermined In responding to this query, please exercise your independent professional judgment. The fact that a question is asked does not imply that any particular answer is desired or expected. Thank you for your clarification on this documentation. If you have any questions please call. * Thank you Leigha Vail RN ext. #[phone] MTDD
--- NOTE | 2018-01-22 23:33 | PN ---
DAILY PROGRESS NOTE DATE: 01/22/2018 SUBJECTIVE: The patient is seen today, 01/22/2018. The patient is confused and he has mild shortness of breath. OBJECTIVE: VITAL SIGNS: Respiratory rate of 24, blood pressure 108/61, temperature 97.2, and pulse is 83. HEENT: Pupils equal and reactive to light. Normal-appearing mucosa of the conjunctivae, oropharynx, and nasal membrane mucosa. NECK: Supple. No JVD. No carotid bruit. No lymph node. No thyromegaly. CHEST AND LUNGS: Bilateral symmetrical expansion. Bilateral basilar rales. CARDIOVASCULAR: PMI not localized. S1 and S2. No additional sounds. ABDOMEN: Normoactive bowel sounds. No tenderness. No organomegaly. No masses. EXTREMITIES: No cyanosis. No clubbing. No edema. CENTRAL NERVOUS SYSTEM: Alert, awake, and oriented x2. No neurological deficit could be appreciated. ASSESSMENT: Sepsis, pneumonia, pulmonary edema, and severe aortic stenosis. PLAN: Lasix was given. Continue current antibiotics. The patient's niece as well as his requested DNR and DNI. Nadine Ritter MD
[2018-01-23] MEDS ORDERED: Chlorhexidine Gluconate 1 APPL/PKT TP ONE (06:47)
[2018-01-23 08:08] LABS: BASO % 0.1 % (0.0-2.0); EOS # 0.3 K/uL (0.0-0.7); EOS % 2.7 % (0.0-4.0); HEMOGLOBIN 14.7 g/dL (12.0-18.0); LYMPH % 8.4 % (20.0-40.0); MEAN CELL VOLUME 97.4 fl (80.0-94.0); MEAN CORPUSCULAR HEMOGLOBIN 32.3 pg (27.0-31.0); MEAN CORPUSCULAR HGB CONC 33.1 g/dL (33.0-37.0); MEAN PLATELET VOLUME 9.9 fl (7.2-11.7); MONO # 1.2 K/uL (0.0-0.8); MONO % 9.7 % (0.0-10.0); NEUT # 9.6 K/uL (1.8-7.0); NEUT % 79.1 % (50.0-75.0); NRBC % 0.1 % (0.0-0.0); RBC 4.57 Mil/uL (4.40-5.90); RED CELL DISTRIBUTION WIDTH 15.2 % (11.5-14.5); WHITE BLOOD COUNT 12.1 K/uL (4.8-10.8)
[2018-01-23] MEDS: Enoxaparin 60 mg Syringe SC SCH (08:30)
[2018-01-23] MEDS: Aspirin 325 mg EC Tablets PO SCH (08:40)
[2018-01-23] MEDS: Nitroglycerin 2% Ointment Foilpak UD TOP SCH ×2 (09:00→16:00)
[2018-01-23 09:13] LABS: BLOOD UREA NITROGEN 32 mg/dl (9-20); CALCIUM 7.4 mg/dL (8.4-10.2); GFR AFRICAN-AMERICAN > 60; GFR NON-AFRICAN AMERICAN > 60
[2018-01-23] MEDS: Dextrose 5%/0.9% NS 1,000 ML IV SCH (15:40)
--- NOTE | 2018-01-23 22:45 | PN ---
DAILY PROGRESS NOTE DATE: 01/23/2018 SUBJECTIVE: The patient is seen today, 01/23/2018. He is awake and alert and he has poor appetite. PHYSICAL EXAMINATION: VITAL SIGNS: Blood pressure 100/62, temperature 97.7, respiratory rate 17, and pulse is 83. HEENT: Pupils equal and reactive to light. Normal-appearing mucosa of the conjunctivae, oropharynx, and nasal membrane mucosa. NECK: Supple. No JVD. No carotid bruit. No lymph node. No thyromegaly. CHEST AND LUNGS: Bilateral symmetrical expansion. Good air exchange. No rales. No rhonchi. CARDIOVASCULAR: PMI not localized. S1 and S2. Positive ejection systolic murmur on the right second intercostal space that radiates to the carotid area. ABDOMEN: Normoactive bowel sounds. No tenderness. No organomegaly. No masses. EXTREMITIES: No cyanosis. No clubbing. No edema. CENTRAL NERVOUS SYSTEM: Alert, awake, and oriented x1 and moves all extremities equally. ASSESSMENT: Pneumonia, status post pulmonary edema, and severe aortic stenosis. PLAN: Continue current antibiotics as well as we will give the patient Megace 5 mL twice a day and Pro-Stat as a protein supplement due to decrease oral intake. Surgical therapy and plan to discharge the patient back to subacute rehabilitation once he is stable. [facility] MD Stone
[2018-01-24] MEDS: Enoxaparin 60 mg Syringe SC SCH (09:59)
[2018-01-24] MEDS: Megestrol Acetate 40 mg/ml Cup PO SCH ×2 (09:59→18:46)
[2018-01-24] MEDS: Aspirin 325 mg EC Tablets PO SCH (10:00)
[2018-01-24] MEDS: Nitroglycerin 2% Ointment Foilpak UD TOP SCH ×2 (10:51→17:35)
[2018-01-24] MEDS: Dextrose 5%/0.9% NS 1,000 ML IV SCH ×2 (11:02→16:02)
--- NOTE | 2018-01-24 12:03 | CP.PCM.PN ---
Subjective - Date & Time of Evaluation Date of Evaluation: 01/24/18 Time of Evaluation: 12:03 - Subjective Subjective: ID Note- Patient seen and examined today in tele floor. patient much more alert and awake today. His and sister-in law are also at bedisde. he denies any cough or any sob. drinking water. as per nurse , however, pt. has had very little urine output today in clay cath and dark, Objective - Vital Signs/Intake and Output Vital Signs (last 24 hours): Temp Pulse Resp BP Pulse Ox 97.4 F L 98 H 20 93/61 L 94 L 01/24/18 08:55 01/24/18 10:51 01/24/18 08:55 01/24/18 10:51 01/24/18 08:55 Intake and Output: 01/24/18 01/24/18 06:59 18:59 Intake Total 600 Output Total 200 Balance 400 - Medications Medications: Current Medications Aspirin (Ecotrin) 325 mg PO DAILY [facility] Last Admin: 01/24/18 10:00 Dose: 325 mg Atorvastatin Calcium (Lipitor) 20 mg PO DAILY [facility] Last Admin: 01/24/18 09:59 Dose: 20 mg Enoxaparin Sodium (Lovenox) 60 mg SC DAILY [facility] PRN Reason: Protocol Last Admin: 01/23/18 08:30 Dose: 60 mg Piperacillin Sod/Tazobactam (Sod 2.25 gm/ Sodium Chloride) 100 mls @ 100 mls/ hr IVPB Q6 [facility] PRN Reason: Protocol Last Admin: 01/24/18 09:58 Dose: 100 mls/hr Dextrose/Sodium Chloride (Dextrose 5%/0.9% Ns 1000 Ml) 1,000 mls @ 50 mls/hr IV .Q20H [facility] Stop: 01/24/18 15:31 Last Admin: 01/24/18 11:02 Dose: 50 mls/hr Megestrol Acetate (Megace) 400 mg PO BID [facility] Last Admin: 01/24/18 09:59 Dose: 400 mg Nitroglycerin (Nitro-Bid 2% Oint) 1 ea TOP BID [facility] Last Admin: 01/24/18 10:51 Dose: Not Given - Labs Labs: - Additional Findings Additional findings: - Constitutional Appears: No Acute Distress - Head Exam Head Exam: ATRAUMATIC - ENT Exam ENT Exam: Normal Oropharynx - Neck Exam Neck exam: Positive for: Full Rom - Respiratory Exam Additional comments: no wheezing bibasilar crackles but less than before - Cardiovascular Exam Cardiovascular Exam: RRR, +S1, +S2 - GI/Abdominal Exam GI & Abdominal Exam: Normal Bowel Sounds, Soft Additional comments: NT, ND - Extremities Exam Additional comments: no edema b/l LE - Neurological Exam Additional comments: much more alert and awake clay cath- scant dark urine Laboratory Results - last 72 hr 01/20/18 01/22/18 01/22/18 20:15 05:00 05:00 WBC 13.5 H RBC 4.88 Hgb 15.9 Hct 48.3 MCV 98.9 H MCH 32.6 H MCHC 32.9 L RDW 15.3 H Plt Count 152 MPV 10.6 Neut % (Auto) 83.4 H Lymph % (Auto) 6.9 L [place] % (Auto) 8.5 Eos % (Auto) 1.2 Baso % (Auto) 0.0 Neut # (Auto) 11.3 H Lymph # (Auto) 0.9 L [place] # (Auto) 1.2 H Eos # (Auto) 0.2 Baso # (Auto) 0.0 Sodium 152 H Potassium 3.7 Chloride 114 H Carbon Dioxide 20 L Anion Gap 22 H BUN 42 H Creatinine 1.0 Est GFR ( Amer) > 60 Est GFR (Non-Af Amer) > 60 POC Glucose (mg/dL) Random Glucose 77 Calcium 8.0 L Total Bilirubin 2.1 H AST 54 ALT 68 Alkaline Phosphatase 107 Total Protein 5.8 L Albumin 2.8 L Globulin 3.1 Albumin/Globulin Ratio 0.9 L Procalcitonin 0.40 Ur L.pneumophila Ag 01/22/18 01/23/18 01/23/18 23:45 06:30 06:30 WBC 12.1 H RBC 4.57 Hgb 14.7 Hct 44.5 MCV 97.4 H MCH 32.3 H MCHC 33.1 RDW 15.2 H Plt Count 138 MPV 9.9 Neut % (Auto) 79.1 H Lymph % (Auto) 8.4 L [place] % (Auto) 9.7 Eos % (Auto) 2.7 Baso % (Auto) 0.1 Neut # (Auto) 9.6 H Lymph # (Auto) 1.0 [place] # (Auto) 1.2 H Eos # (Auto) 0.3 Baso # (Auto) 0.0 Sodium 147 Potassium 3.6 Chloride 110 H Carbon Dioxide 21 L Anion Gap 20 BUN 32 H Creatinine 0.9 Est GFR ( Amer) > 60 Est GFR (Non-Af Amer) > 60 POC Glucose (mg/dL) Random Glucose 117 H Calcium 7.4 L Total Bilirubin AST ALT Alkaline Phosphatase Total Protein Albumin Globulin Albumin/Globulin Ratio Procalcitonin Ur L.pneumophila Ag Negative 01/23/18 14:41 WBC RBC Hgb Hct MCV MCH MCHC RDW Plt Count MPV Neut % (Auto) Lymph % (Auto) [place] % (Auto) Eos % (Auto) Baso % (Auto) Neut # (Auto) Lymph # (Auto) [place] # (Auto) Eos # (Auto) Baso # (Auto) Sodium Potassium Chloride Carbon Dioxide Anion Gap BUN Creatinine Est GFR ( Amer) Est GFR (Non-Af Amer) POC Glucose (mg/dL) 113 H Random Glucose Calcium Total Bilirubin AST ALT Alkaline Phosphatase Total Protein Albumin Globulin Albumin/Globulin Ratio Procalcitonin Ur L.pneumophila Ag Microbiology 01/21/18 09:26 Sputum Gram Stain - Final 01/21/18 09:26 Sputum Sputum Culture - Final Citrobacter Diversus Yeast Species 01/20/18 01:20 Blood Blood Culture - Preliminary NO GROWTH AFTER 3 DAYS 01/20/18 12:00 Blood Blood Culture - Preliminary NO GROWTH AFTER 3 DAYS 01/20/18 16:52 Naris MRSA Culture (Admit) - Final MRSA NOT DETECTED 01/20/18 14:20 Urine Urine Culture - Final No Growth (<1,000 CFU/ML) Assessment and Plan (1) Pneumonia Status: Acute (2) CHF (congestive heart failure) Status: Acute - Assessment and Plan (Free Text) Assessment: A/P- 87 year old male with CHF, , admitted from rehab with sob, lethargic found to have b/l lower lobe alveolar infiltrate along with pulm edema . clinically has improved afebrile leukocytosis trending down. blood cx neg x 2 urine cx- neg sputum cx- citrobacter (pansensitive) and yeast urine legionella AG- negative Plan- has completde 5 days of IV zosyn and vanco . since now sputum cx is resulted will d/c vanco and zosyn. place on ertapenem IV daily for citrobacter ( advise 3-5 more days). monitor aspiration precautions. monitor wbc. advise to check creatinine level today since low urine out put today. also advised nurse to notify patient's PMD regarding this and he may suggest to change clay and if no improvement in urine output check renal US.
[2018-01-24] MEDS ORDERED: Sodium Chloride 0.9% 1,000 ML IV SCH (15:15)
[2018-01-24 16:09] LABS: BLOOD UREA NITROGEN 26 mg/dl (9-20); CALCIUM 7.5 mg/dL (8.4-10.2); GFR AFRICAN-AMERICAN > 60; GFR NON-AFRICAN AMERICAN > 60
[2018-01-24] MEDS ORDERED: Potassium Ch 20mEq in D5-1/2NS 1,000 ML IV SCH (16:30)
[2018-01-24] MEDS ORDERED: POTASSIUM CHLORIDE IV SCH (16:30)
[2018-01-24] MEDS ORDERED: [UNRECOGNIZED DRUG - OTHER] IV SCH (16:30)
[2018-01-24] MEDS ORDERED: DEXTROSE IV SCH (16:30)
--- NOTE | 2018-01-24 16:44 | PCM.RRT ---
BUSINESS COMPUTERS TEACHER Nurse Assessment - Situation BUSINESS COMPUTERS TEACHER Responder Arrival Time: 16:10 BUSINESS COMPUTERS TEACHER Reason for Call: Hypotension BUSINESS COMPUTERS TEACHER Called By: RN - IV IV Inserted during BUSINESS COMPUTERS TEACHER?: No - Respiratory Oxygen Delivery Method: Room Air Received Nebulizer Treatments: No Was the Patient Ventilated with Bag/Mask 100% O2?: No Secretions Suctioned?: No Was the Patient Intubated?: No Was the Patient Placed on a Ventilator?: No - Medication Medications Administered During BUSINESS COMPUTERS TEACHER: KCl 10 meq; stopped aspirin 325 mg, start aspirin 81 mg, hold lovenox. - Diagnostic Test Ordered EKG: No Chest X-Ray: No CT Scan: No CPR started during BUSINESS COMPUTERS TEACHER?: No - Vital Signs Vital Signs: BP 75/43, HR 71, RR 17, Pulse ox 100% on RA - Time BUSINESS COMPUTERS TEACHER Ended Time BUSINESS COMPUTERS TEACHER Ended: 16:30 - Recommendations BUSINESS COMPUTERS TEACHER Level of Care Recommendations: Remain in current setting I.Reason for BUSINESS COMPUTERS TEACHER - A) Acute Change in Patient: Subjective: BUSINESS COMPUTERS TEACHER location: , ROOM 404-1 BUSINESS COMPUTERS TEACHER Reason: hypotension S: BUSINESS COMPUTERS TEACHER was called by pt's nurse due to hypotesion for 87 yo male w/ pmhx CHF, and prostate CA admitted from rehab with hypotension, SOB and respiratory distress. Upon arrival, patient's BP 75/43. Patient was awake, alert and not in acute distress. Pt was comfortably drinking juice when provided during BUSINESS COMPUTERS TEACHER. Per nurse, pt had multiple episodes of non-bloody diarrhea today. Pt also had blood clots w/ urine when clay was removed today. She denies any chest pain, dyspnea , nausea or vomiting. End of the BUSINESS COMPUTERS TEACHER, patient remained stable and asymptomatic with manually measured BP 84/48 w/ HR of 75. O: General: Not in acute distress Respiratory: CTA, no wheezing Cardiovascular: RRR, normal S1, S2 GI: soft, +BS, non distened. Extremities: no edema. +peripheral pulse. BUSINESS COMPUTERS TEACHER intervention: -D5 1/2 NS 500 ml bolus with 10 meq KCl -Stop aspirin 325 mg -Start aspirin 81 mg po qd -Hold Lovenox 60 mg sc -Start Bacid 1 cap po bid Assessment/Plan: 87 yo male w/ pmhx CHF, and prostate CA admitted from rehab with hypotension, SOB and respiratory distress, BUSINESS COMPUTERS TEACHER was called for hypotension. -Hypotension likely secondary to volume depletion. -BUSINESS COMPUTERS TEACHER intervention as above -H&H on 01/23/18 was 14.7/44.5 -K:3.4 today; 10 meq KCl added -Pt is to remain in current setting BUSINESS COMPUTERS TEACHER leader: Dr. Grijalva BUSINESS COMPUTERS TEACHER team: Dr. Kulkarni, Dr. Zarco, pgy-2, Dr. Santiago, pgy-1
[2018-01-24] MEDS ORDERED: DEXTROSE IV ONE (16:45)
[2018-01-24] MEDS ORDERED: POTASSIUM CHLORIDE IV ONE (16:45)
[2018-01-24] MEDS ORDERED: [UNRECOGNIZED DRUG - OTHER] IV ONE (16:45)
[2018-01-24] MEDS ORDERED: POTASSIUM CH IV ONE ×2 (17:45→18:00)
[2018-01-24] MEDS ORDERED: D5 IV ONE ×2 (17:45→18:00)
[2018-01-24] MEDS ORDERED: [UNRECOGNIZED DRUG - OTHER] IV ONE ×2 (17:45→18:00)
[2018-01-24] MEDS: Lactobacillus Acidophilus 500 MU Cap PO SCH (18:46)
--- NOTE | 2018-01-24 21:46 | PN ---
DAILY PROGRESS NOTE DATE: 01/24/2018 SUBJECTIVE: The patient is seen today, 01/24/2018. He is not in any cardiopulmonary distress, but the patient was found to be hypotensive and he had no urine output. Bladder scan showed 300 mL and the Child catheter was clotted with blood. Child catheter was removed and the patient urinated with some blood clots and the catheter was not be easy to be put again. OBJECTIVE: VITAL SIGNS: Blood pressure was 85/53, temperature 97.5, respiratory rate 20, and pulse 74. HEENT: Slightly pale mucosa of the conjunctivae. NECK: Supple. No JVD. No carotid bruit. No lymph node. No thyromegaly. CHEST AND LUNGS: Bilateral symmetrical expansion. Good air exchange. No rales. No rhonchi. CARDIOVASCULAR: PMI not localized. S1 and S2 positive, 3/6 ejection systolic murmur on the right intercostal space radiates to the neck. ABDOMEN: Normoactive bowel sounds. No tenderness. No organomegaly. No masses. EXTREMITIES: No cyanosis. No clubbing. No edema. CENTRAL NERVOUS SYSTEM. Alert, awake, and oriented x2 and no neurological deficit could be appreciated. ASSESSMENT: Severe aortic stenosis, pulmonary edema, pneumonia, poor oral intake with hypotension and dehydration, and hypokalemia. PLAN: Supplement potassium, gentle hydration, and continue current antibiotics. Nadine Ritter MD
[2018-01-25] MEDS: Dextrose 5%/0.9% NS 1,000 ML IV SCH (03:53)
[2018-01-25] MEDS: Megestrol Acetate 40 mg/ml Cup PO SCH ×2 (09:55→16:03)
[2018-01-25] MEDS: Lactobacillus Acidophilus 500 MU Cap PO SCH ×2 (09:55→16:03)
[2018-01-25] MEDS: Nitroglycerin 2% Ointment Foilpak UD TOP SCH ×2 (09:58→16:03)
--- NOTE | 2018-01-25 13:25 | CP.PCM.PN ---
Subjective - Date & Time of Evaluation Date of Evaluation: 01/25/18 Time of Evaluation: 13:22 - Subjective Subjective: ID Note- patient seen and examined today. patient lethargic, at his bedside. as per nurse SUPERINTENDENT PLANT was called for hypotention and as per nurse family may make pt. hospice. Objective - Vital Signs/Intake and Output Vital Signs (last 24 hours): Temp Pulse Resp BP Pulse Ox 97.5 F L 77 18 80/56 L 97 01/25/18 12:18 01/25/18 12:18 01/25/18 12:18 01/25/18 12:18 01/25/18 12:18 - Medications Medications: Current Medications Aspirin (Ecotrin) 81 mg PO DAILY [facility] Last Admin: 01/25/18 09:56 Dose: 81 mg Atorvastatin Calcium (Lipitor) 20 mg PO DAILY [facility] Last Admin: 01/25/18 09:55 Dose: 20 mg Enoxaparin Sodium (Lovenox) 60 mg SC DAILY [facility] PRN Reason: Protocol Last Admin: 01/23/18 08:30 Dose: 60 mg Ertapenem 1 gm/ Sodium (Chloride) 100 mls @ 100 mls/hr IVPB DAILY [facility] PRN Reason: Protocol Last Admin: 01/25/18 09:54 Dose: 100 mls/hr Dextrose/Sodium Chloride (Dextrose 5%/0.9% Ns 1000 Ml) 1,000 mls @ 80 mls/hr IV .[id number] [facility] Stop: 01/25/18 15:31 Last Admin: 01/25/18 03:53 Dose: 80 mls/hr Lactobacillus Acidophilus (Bacid Acidophilus) 1 cap PO BID [facility] Last Admin: 01/25/18 09:55 Dose: 1 cap Megestrol Acetate (Megace) 400 mg PO BID [facility] Last Admin: 01/25/18 09:55 Dose: 400 mg Nitroglycerin (Nitro-Bid 2% Oint) 1 ea TOP BID [facility] Last Admin: 01/25/18 09:58 Dose: Not Given - Labs Labs: - Additional Findings Additional findings: - Head Exam Head Exam: ATRAUMATIC - ENT Exam ENT Exam: Normal Oropharynx - Neck Exam Neck exam: Positive for: Full Rom - Respiratory Exam Additional comments: no wheezing bibasilar crackles but less than before - Cardiovascular Exam Cardiovascular Exam: RRR, +S1, +S2 - GI/Abdominal Exam GI & Abdominal Exam: Normal Bowel Sounds, Soft Additional comments: NT, ND - Extremities Exam Additional comments: no edema b/l LE - Neurological Exam Additional comments: lethargic Laboratory Results - last 72 hr 01/22/18 01/23/18 01/23/18 23:45 06:30 06:30 WBC 12.1 H RBC 4.57 Hgb 14.7 Hct 44.5 MCV 97.4 H MCH 32.3 H MCHC 33.1 RDW 15.2 H Plt Count 138 MPV 9.9 Neut % (Auto) 79.1 H Lymph % (Auto) 8.4 L [place] % (Auto) 9.7 Eos % (Auto) 2.7 Baso % (Auto) 0.1 Neut # (Auto) 9.6 H Lymph # (Auto) 1.0 [place] # (Auto) 1.2 H Eos # (Auto) 0.3 Baso # (Auto) 0.0 Sodium 147 Potassium 3.6 Chloride 110 H Carbon Dioxide 21 L Anion Gap 20 BUN 32 H Creatinine 0.9 Est GFR ( Amer) > 60 Est GFR (Non-Af Amer) > 60 POC Glucose (mg/dL) Random Glucose 117 H Calcium 7.4 L Ur L.pneumophila Ag Negative 01/23/18 01/24/18 01/24/18 14:41 15:30 15:30 WBC RBC Hgb Hct MCV MCH MCHC RDW Plt Count MPV Neut % (Auto) Lymph % (Auto) [place] % (Auto) Eos % (Auto) Baso % (Auto) Neut # (Auto) Lymph # (Auto) [place] # (Auto) Eos # (Auto) Baso # (Auto) Sodium 143 Potassium 3.4 L Chloride 106 Carbon Dioxide 23 Anion Gap 17 BUN 26 H Creatinine 1.0 0.9 Est GFR ( Amer) > 60 > 60 Est GFR (Non-Af Amer) > 60 > 60 POC Glucose (mg/dL) 113 H Random Glucose 166 H Calcium 7.5 L Ur L.pneumophila Ag Microbiology 01/23/18 08:10 Naris MRSA Culture (Admit) - Final MRSA NOT DETECTED 01/20/18 01:20 Blood Blood Culture - Preliminary NO GROWTH AFTER 4 DAYS 01/20/18 12:00 Blood Blood Culture - Preliminary NO GROWTH AFTER 4 DAYS 01/21/18 09:26 Sputum Gram Stain - Final 01/21/18 09:26 Sputum Sputum Culture - Final Citrobacter Diversus Yeast Species 01/20/18 16:52 Naris MRSA Culture (Admit) - Final MRSA NOT DETECTED 01/20/18 14:20 Urine Urine Culture - Final No Growth (<1,000 CFU/ML) Assessment and Plan (1) Pneumonia Status: Acute (2) CHF (congestive heart failure) Status: Acute - Assessment and Plan (Free Text) Assessment: A/P- 87 year old male with CHF, , admitted from rehab with sob, lethargic found to have b/l lower lobe alveolar infiltrate along with pulm edema . hypotensive/chf/severe lethargic afebrile leukocytosis trending down. blood cx neg x 2 urine cx- neg sputum cx- citrobacter (pansensitive) and yeast urine legionella AG- negative Plan- has completde 5 days of IV zosyn and vanco . since now sputum cx is resulted will d/c vanco and zosyn. continue with ertapenem IV daily for citrobacter day #2 ( advise 2 more days). monitor aspiration precautions. prognosis guarded
--- NOTE | 2018-01-25 18:54 | RAD ---
HISTORY: f/u COMPARISON: 01/21/2018 FINDINGS: LUNGS: There is severe pulmonary venous congestion. PLEURA: Moderate bilateral effusions, no pneumothorax apparent. CARDIOVASCULAR: The heart is enlarged. OSSEOUS STRUCTURES: No significant abnormalities. VISUALIZED UPPER ABDOMEN: Normal. OTHER FINDINGS: None. IMPRESSION: Findings are most compatible with worsening congestive heart failure.
--- NOTE | 2018-01-25 22:27 | PN ---
DAILY PROGRESS NOTE DATE: 01/25/2018 SUBJECTIVE: The patient is seen today, 01/25/2018. The patient is in mild shortness of breath. PHYSICAL EXAMINATION: VITAL SIGNS: Blood pressure is 91/62, temperature 97.5, respiratory rate 18, and pulse 77. HEENT: Pupils equal and reactive to light. Normal-appearing mucosa of the conjunctivae, oropharynx, and nasal membrane mucosa. NECK: Supple. No JVD. No carotid bruit. No lymph node. No thyromegaly. CHEST AND LUNGS: Bilateral symmetrical expansion. Good air exchange. No rales. No rhonchi. CARDIOVASCULAR: PMI not localized. S1 and S2. No additional sounds. ABDOMEN: Normoactive bowel sounds. No tenderness. No organomegaly. No masses. EXTREMITIES: No cyanosis. No clubbing. No edema. CENTRAL NERVOUS SYSTEM. Awake. Moves all extremities, but he is confused. ASSESSMENT: 1. Status post pulmonary edema. 2. Severe aortic stenosis. 3. Pneumonia. PLAN: Continue current IV antibiotics and give the patient IV fluids due to the hypertension and decreased oral intake. Discussed with the patient's the poor prognosis and the possible hospice care as decision was made earlier against any interventional treatment for aortic stenosis and only comfort care. $#DTPHYNAME DD: $#DTDICT $#TMDICT([facility]:mm:ss) DT: $#DTTRAN $#TMTRAN([facility]:mm:ss) Job # $#DOCID
[2018-01-26 05:40] LABS: HEMOGLOBIN 14.1 g/dL (12.0-18.0); MEAN CELL VOLUME 97.3 fl (80.0-94.0); MEAN CORPUSCULAR HEMOGLOBIN 32.1 pg (27.0-31.0); RBC 4.4 Mil/uL (4.40-5.90); RED CELL DISTRIBUTION WIDTH 15.2 % (11.5-14.5); WHITE BLOOD COUNT 12.5 K/uL (4.8-10.8)
[2018-01-26 05:44] LABS: BLOOD UREA NITROGEN 26 mg/dl (9-20); GFR AFRICAN-AMERICAN > 60; GFR NON-AFRICAN AMERICAN > 60
[2018-01-26] MEDS: Lactobacillus Acidophilus 500 MU Cap PO SCH ×2 (08:41→16:36)
[2018-01-26] MEDS: Megestrol Acetate 40 mg/ml Cup PO SCH ×2 (08:44→16:36)
[2018-01-26] MEDS: Nitroglycerin 2% Ointment Foilpak UD TOP SCH (16:37)
[2018-01-26] MEDS ORDERED: Chlorhexidine Gluconate 1 APPL/PKT TP ONE ×2 (19:15→19:23)
--- NOTE | 2018-01-26 19:34 | CP.PCM.PN ---
Subjective - Date & Time of Evaluation Date of Evaluation: 01/26/18 Time of Evaluation: 19:32 - Subjective Subjective: PT unable to void,staff unable to insert clay. Clay inserted with difficulty using cath guide. Suggest Leave clay in Place and transfer to [facility]osp[facility] Objective - Vital Signs/Intake and Output Vital Signs (last 24 hours): Temp Pulse Resp BP Pulse Ox 97.7 F 90 16 91/59 L 98 01/26/18 19:30 01/26/18 19:30 01/26/18 19:30 01/26/18 19:30 01/26/18 19:30 - Medications Medications: Current Medications Aspirin (Ecotrin) 81 mg PO DAILY [facility] Last Admin: 01/26/18 08:42 Dose: 81 mg Atorvastatin Calcium (Lipitor) 20 mg PO DAILY [facility] Last Admin: 01/26/18 08:44 Dose: 20 mg Enoxaparin Sodium (Lovenox) 60 mg SC DAILY [facility] PRN Reason: Protocol Last Admin: 01/23/18 08:30 Dose: 60 mg Ertapenem 1 gm/ Sodium (Chloride) 100 mls @ 100 mls/hr IVPB DAILY [facility] PRN Reason: Protocol Last Admin: 01/26/18 08:42 Dose: 100 mls/hr Lactobacillus Acidophilus (Bacid Acidophilus) 1 cap PO BID [facility] Last Admin: 01/26/18 16:36 Dose: 1 cap Megestrol Acetate (Megace) 400 mg PO BID [facility] Last Admin: 01/26/18 16:36 Dose: 400 mg Nitroglycerin (Nitro-Bid 2% Oint) 1 ea TOP BID [facility] Last Admin: 01/26/18 16:37 Dose: Not Given - Labs Labs: 01/26/18 05:00 01/26/18 05:00 PT 16.1 Seconds (9.8-13.1) H 01/20/18 13:25 INR 1.4 (0.9-1.2) H 01/20/18 13:25 APTT 32.4 Seconds (25.6-37.1) 01/20/18 13:25
--- NOTE | 2018-01-27 00:12 | PN ---
DATE: $# SUBJECTIVE: He is lethargic and the patient was found to have urinary retention of 360 mL. There is decreased oral intake. OBJECTIVE: VITAL SIGNS: Blood pressure 91/59, temperature 97.7, respiratory rate 16 and pulse 19. HEENT: Pupils are equal, reactive to light and normal-appearing mucosa of the conjunctivae. NECK: Supple. No JVD. No carotid bruit. No lymph node. No thyromegaly. CHEST/LUNGS: Bilateral symmetrical expansion. Good air exchange. There are bilateral basilar rales. CARDIOVASCULAR: PMI not localized. S1 and S2, positive ejection systolic murmur on the second right intercostal space. ABDOMEN: Decreased bowel sounds. There is fullness of the suprapubic area. EXTREMITIES: No cyanosis, no clubbing, no edema. RIGGER SUPERVISOR: The patient is lethargic, not responding to verbal stimuli or following commands, but opens eyes and no lateralization signs. ASSESSMENT: Severe aortic stenosis, pneumonia, status post pulmonary edema, urinary retention. PLAN: 1. Urology consult for Coude catheter insertion as it was not possible to insert regular catheter before. 2. The patient is not eating and has significant decrease of oral intake and severe aortic stenosis for which the family have refused any further workup, it was discussed with his niece and for hospice care. ____ was requested also. Continue current IV antibiotics for now. $#DTPHYNAME DD: $#DTDICT $#TMDICT([facility]:mm:ss) DT: $#DTTRAN $#TMTRAN([facility]:mm:ss) Job # $#DOCID
[2018-01-27 00:15] VITALS: RESP 18
[2018-01-27 08:05] VITALS: BP 106/69; TEMP 97.7
[2018-01-27] MEDS: Megestrol Acetate 40 mg/ml Cup PO SCH (08:54)
[2018-01-27] MEDS: Lactobacillus Acidophilus 500 MU Cap PO SCH (08:58)
[2018-01-27] MEDS: Nitroglycerin 2% Ointment Foilpak UD TOP SCH (08:58)
[2018-01-27 09:56] VITALS: PULSE 85; O2SAT 2
--- NOTE | 2018-01-28 08:56 | CON ---
DATE: 01/26/2018 CONSULTATION REQUESTED BY: Dr. Ritter. CHIEF COMPLAINT: Inability to urinate. HISTORY OF PRESENT ILLNESS: The patient is a dementia patient who was transferred from a Long Term with pneumonia and CHF and possible sepsis. He is in the stepdown unit and the patient had a Child catheter in a past, but it has been removed and he has been unable to urinate. The patient's bladder was noted to be distended by the staff. There is no history of prior urinary problems; however, the patient has dementia and cannot answer questions and history are incomplete. REVIEW OF SYSTEMS: RESPIRATORY: The patient is being treated for active pneumonia. CARDIOVASCULAR: The patient has no history of chest pain or cardiac implants. GASTROINTESTINAL: The patient has no had diarrhea, constipation or change in bowel habits. GENITOURINARY: The patient had a Child catheter, which was removed several days ago. The staff try to reinsert the catheter when the patient failed to void and was unable. SOCIAL HISTORY: The patient lives in a Long Term. He was not a smoker and not a drinker. He has a history of dementia. PHYSICAL EXAMINATION: VITAL SIGNS: Within normal limits. HEAD, EARS, EYES, NOSE AND THROAT: Within normal limits. NECK: Supple. There are no bruits noted or mass. CHEST: Bilateral lower lobe, rales and rhonchi. HEART: Normal sinus rhythm. There is no tachycardia or cardiomegaly. ABDOMEN: Soft and nontender. Bladder is palpably distended four fingers above the suprapubic bone. GENITOURINARY: The patient is uncircumcised, meatus is adequate. Testicles, epididymis, and cord are normal. RECTAL: Shows 3+ non-nodular prostate. EXTREMITIES: The patient appears to move all extremities, There are good pulses in both lower extremities and upper extremities. As much the patient's muscle strength appears normal. NEUROLOGIC: The patient is awake, but not alert and oriented. He does not speak or ask questions. I have also reviewed laboratory data and the medication history ____ chest x-ray results. ASSESSMENT: My impression is urinary retention. PLAN: After reviewing in the laboratory data and examining the patient, it was elected to attempt to pass a Coude catheter. This was unsuccessful due to an obstruction of the level of prostate. A catheter guide was then used and a #18 Child catheter and the catheter was guided above the prostate into the bladder proximally 500 mL of pinkish urine was obtained. The patient tolerated this procedure well. Catheter was fixed and placed. The decision was made to place the catheter and leave the catheter in place. I would suggest that the catheter stay in place and the patient should be sent to hospice as planned with the catheter in place. Lyndon Thomson MD
--- NOTE | 2018-01-28 14:53 | DS ---
REASON FOR ADMISSION: This is an 87-year-old male with history of severe aortic stenosis who was admitted for pulmonary edema, pneumonia. COURSE OF HOSPITALIZATION: The patient was initially admitted to Intensive Care Unit and he was diuresed and started on IV antibiotics. The patient had Cardiology consult done by Dr. Montejo and ID consult done by Nereida. The patient was transferred to the telemetry floor and he was not eating and had decreased oral intake. The patient had also urinary retention and had to place Child catheter. The patient continued to deteriorate and had persistent congestive heart failure secondary to severe aortic stenosis. Decision of the niece and the to make the patient DNR and DNI. As the patient condition was not improving, a decision was to discharge the patient to comforting care and hospice. The patient was discharged to hospice care for comforting measures and end of life care. FINAL DIAGNOSES: Severe aortic stenosis, congestive heart failure acute on chronic both systolic and diastolic, pneumonia, and dementia. Nadine Ritter MD
== END 2018-01-27 09:54 | disposition hospice, inpatient (51) | DRG 871 ==
LOC: H.ER 12:22 → H.ERHOLD 14:29 → H.ICU/CCU 15:59 → H.TEL 01-23 05:45
PROVIDERS: ADMIT Internal Medicine; ATTEND Internal Medicine
PROC: 0T9B70Z Drainage of Bladder with Drainage Device, Via Natural or Artificial Opening (ICD-10-PCS; principal; 2018-01-27)
DX: A41.9 Sepsis, unspecified organism (principal); J18.9 Pneumonia, unspecified organism; I21.4 Non-ST elevation (NSTEMI) myocardial infarction; I50.23 Acute on chronic systolic (congestive) heart failure; I42.9 Cardiomyopathy, unspecified; I11.0 Hypertensive heart disease with heart failure; E87.6 Hypokalemia; E86.0 Dehydration; I35.0 Nonrheumatic aortic (valve) stenosis; R33.8 Other retention of urine; R09.02 Hypoxemia; Z66 Do not resuscitate; F03.90 Unspecified dementia, unspecified severity, without behavioral disturbance, psychotic disturbance, mood disturbance, and anxiety; I95.89 Other hypotension; E78.5 Hyperlipidemia, unspecified; E78.00 Pure hypercholesterolemia, unspecified; I27.20 Pulmonary hypertension, unspecified; K21.9 Gastro-esophageal reflux disease without esophagitis; H91.90 Unspecified hearing loss, unspecified ear; N40.1 Benign prostatic hyperplasia with lower urinary tract symptoms; Z91.81 History of falling